=== PATIENT | female | born 1995 | race Caucasian/White ===

== ENCOUNTER 2020-06-03 12:42 | Emergency (ER) | payer MEDICAID, SELFPAY ==
[2020-06-03 12:51] VITALS: BMI 45.1
[2020-06-03 12:54] VITALS: BP 127/76; PULSE 100; RESP 18; TEMP 36.8; O2SAT 98
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
--- NOTE | 2020-06-03 13:58 | USR_ITS ---
PROCEDURE INFORMATION: Exam: US Duplex Left Lower Extremity Veins, Limited Exam date and time: 06/03/2020 2:02 PM Age: 25 years old Clinical indication: Other: Changing lesions between 4th and 5th toes; Additional info: Parasthesias and nonhealing wounds - TECHNIQUE: Imaging protocol: Real-time Duplex ultrasound of the Left Lower Extremity with 2-D gibbs scale, color Doppler flow and spectral waveform analysis with image documentation. Limited exam focused on the left lower extremity veins. COMPARISON: No relevant prior studies available. FINDINGS: Left deep veins: No deep venous thrombosis in the visualized left common femoral, profunda femoris, superficial femoral, popliteal, or posterior tibial veins. Left superficial veins: Unremarkable. Saphenofemoral junction is patent without thrombus. Soft tissues: Unremarkable. Lymph nodes: Fatty replaced inguinal lymph node. US/CV venous duplex [facility] [id number] IMPRESSION: No deep venous thrombosis in the visualized left lower extremity.
[2020-06-03 14:53] VITALS: RESP 18
[2020-06-03 15:15] LABS: Basophils % 0.4 %; Eosinophils # 0.2 10^3/uL (0.0-0.8); Eosinophils % 1.8 %; Hematocrit 35.7 % (37.0-47.0); Hemoglobin 12.2 g/dL (11.5-15.3); Lymphocytes # 2.8 10^3/uL (0.8-4.8); Lymphocytes % 32.5 %; Mean Corpuscular HGB Conc 34.2 g/dL (30.0-36.0); Mean Corpuscular Hemoglobin 29.3 pg (28.0-34.0); Mean Corpuscular Volume 85.8 fL (81-99); Monocytes # 0.5 10^3/uL (0.2-0.9); Monocytes % 5.6 %; Neutrophils # 5.04 10^3/uL (1.8-7.7); Neutrophils % 59.2 %; Nucleated Red Blood Cells % 0 %; Platelet Count 238 10^3/cmm (130-400); Red Blood Count 4.16 10^6/uL (4.1-5.3); Red Cell Distribution Width 12.7 % (12.1-15.1); White Blood Count 8.5 10^3/uL (4.0-10.0)
[2020-06-03 15:29] LABS: Alanine Aminotransferase 44 U/L (0-33); Albumin Level 3.8 g/dL (3.5-5.2); Alkaline Phosphatase 64 IU/L (35-105); Anion Gap 12.8 (5-19); Aspartate Amino Transferase 26 U/L (0-32); Blood Urea Nitrogen 4 mg/dL (6-20); Calcium 9.2 mg/dL (8.5-10.5); Carbon Dioxide 22 mmol/L (22-29); Chloride 104 mmol/L (98-107); Globulin 2.9 g/dL (1.3-4.6); Glomerular Filtration Rate 194.5 mL/min (90-130); Glucose 94 mg/dL (65-115); Osmolality Calculated 275 mOsm/kg (285-295); Potassium 3.8 mmol/L (3.5-5.1); Sodium 135 mmol/L (136-145); Total Bilirubin 0.2 mg/dL (0.15-1.2); Total Protein 6.7 g/dL (6.6-8.7)
[2020-06-03 16:03] VITALS: BP 118/64; PULSE 88; RESP 18; O2SAT 98
== END 2020-06-03 16:04 | disposition home or self-care (01) ==
PROVIDERS: Emergency Provider Nurse Practitioner Family; PCP Family Medicine
DX: B35.3 Tinea pedis (principal); A49.9 Bacterial infection, unspecified; Z87.891 Personal history of nicotine dependence
CPT/HCPCS: 12345; 36415; 80053; 85025; 93971; 99281; 99283

== ENCOUNTER 2021-07-19 23:37 | Emergency (ER) | payer MEDICAID, SELFPAY ==
[2021-07-19 23:47] VITALS: BP 145/91; PULSE 78; RESP 17; TEMP 36.3; O2SAT 92; BMI 49.9
--- NOTE | 2021-07-19 23:58 | XR_ITS ---
WS: [id number] Portable AP upright chest, 07/20/2021 Clinical Data: cough Comparison: None. Findings: No nodules, masses or effusions are seen. The heart is slightly enlarged. The pulmonary vas cularity is not increased. No pneumonia or pneumothorax is seen. XR/XR chest 1V portable [id number] Impression: Cardiomegaly.
--- NOTE | 2021-07-20 | W.ED.ASTHMA ---
HPI - Asthma General: Chief Complaint: Asthma Stated Complaint: Coughing Throat raw Vomiting Blood Time Seen by Provider: 07/19/21 23:48 Source: patient Mode of arrival: ambulatory Limitations: no limitations History of Present Illness: HPI Narrative: 26-year-old female who has a history of asthma and states that over the last 7 days she has had cough congestion. She states she is also had wheezing as well. States she has been out of her inhaler. She denies any diarrhea. Denies any worsening improving factors. Patient is resting comfortably in her room. Associated symptoms: Reports non-productive cough; Deny chest pain or fever(s) Review of Systems Const: Denies: fever(s), chills, body aches or change in appetite Eyes: Denies: blurry vision or eye discomfort ENMT: Reports: nasal congestion Card: Denies: chest pain Resp: Reports: non-productive cough and wheezing GI: Denies: abdominal pain, nausea, vomiting or diarrhea : Denies: dysuria Musc: Denies: neck pain or back pain Skin/Breast: Denies: rash Neuro: Denies: headache(s) Psych: Denies: depression Chip/Lymph: Denies: easy bruising All/Imm: Denies: urticaria PFSH ED PFSH: Social History Smoking and tobacco status: former smoker Quit status (tobacco): has quit using tobacco Year quit tobacco: 2019 Former quit date comment: PPD x 5 yrs Second hand smoke exposure: Yes Alcohol intake: never Lives independently: Yes Household members: family Marital status: Legally Current occupational status: employed 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 History of recent travel: No Current gender identity: Female Female Reproductive History: Date of last menstrual period: 01/24/20 Physical Exam Const: COMMON NORMALS: no acute distress, patient oriented x3 and healthy appearing HENMT: COMMON NORMALS: normocephalic and atraumatic HEAD & SCALP: normocephalic and atraumatic Eye: COMMON NORMALS: Equal, round and reactive pupils present and EOMs intact bilaterally PUPIL: Yes Equal, round and reactive pupils present Neck/C-Spine: COMMON NORMALS: full ROM and supple Chest: COMMONS NORMALS: normal inspection of the chest and normal palpation of entire chest wall Resp: COMMON NORMALS: normal respiratory effort, No retractions and No use of accessory muscles AUSCULTATION: wheezes (mild) Cardio: COMMON NORMALS: regular rate, regular rhythm and No murmurs present (Cardio) RATE: regular rate RHYTHM: regular rhythm GI: COMMON NORMALS: Normal to inspection, nondistended, normoactive bowel sounds present, Soft to palpation, non-tender and no masses PALPATION: Yes Soft to palpation Extremity: COMMON NORMALS: normal to inspection and full ROM Neuro: COMMON NORMALS: patient oriented x3, moves all extremities and no focal motor deficits Psych: COMMON NORMALS: mental status grossly normal, Normal thought process present and cooperative THOUGHT PROCESS: Normal thought process present Skin: COMMON NORMALS: no rashes or lesions noted and no wounds GENERAL SKIN EXAM: no rashes or lesions noted Course Vital Signs: Vital signs: Vital Signs Temperature 97.4 F L 07/19/21 23:47 Pulse Rate 78 07/19/21 23:47 Respiratory Rate 17 07/19/21 23:47 Blood Pressure 145/91 07/19/21 23:47 Pulse Oximetry 92 07/19/21 23:47 MDM - Asthma MDM Narrative: Medical decision making narrative: Patient presents here with cough congestion likely asthma exacerbation we will place him on antibiotic along with steroid inhaler. Patient is to follow-up PCP and return if worsening. Lab Data: Labs: Lab Results 07/20/21 Range/Units 00:15 SARS-CoV-2 Ag (Rap id) Negative (Negative) Imaging Data^: CXR: Attestation: I personally reviewed and interpreted this imaging study as follows: My impression: no acute abnormality Discharge Plan Discharge Patient Disposition: Home Clinical Impression: Asthma exacerbation Qualifiers: Asthma severity: unspecified severity Asthma persistence: unspecified Qualified Code(s): J45.901 - Unspecified asthma with (acute) exacerbation Condition: Stable Prescriptions: New azithromycin 250 mg tablet See Rx Instructions .ROUTE .COMPLEX Qty: 6 RF: 0 prednisone 50 mg tablet 50 mg PO DAILY Qty: 5 RF: 0 No Action Keflex 250 mg capsule 500 mg PO Q12H Qty: 28 RF: 0 Discharge Orders: Discharge ED (Routine); Ordered 07/20/21 Ordered By: Nav Koroma Referrals: Travon Bender MD [Primary Care Provider] - 1-3 days Discharge Diet: Advance as tolerated Discharge Activity: Resume usual activity Patient Instructions: Asthma Exacerbation - Adult Stand Alone Forms: Work/School Release Coding Level of Care Code ED Shredding Specialist for Mikeg 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
[2021-07-20] MEDS: dexamethasone 10 mg/mL INJ IM (00:26)
[2021-07-20 00:44] LABS: SARS Covid-2 Antigen Negative (Negative)
[2021-07-20 01:26] VITALS: BP 145/91; PULSE 78; RESP 17; O2SAT 92
== END 2021-07-20 01:15 | disposition home or self-care (01) ==
PROVIDERS: Emergency Provider Emergency Medicine; PCP Family Medicine
DX: J45.901 Unspecified asthma with (acute) exacerbation (principal); Z87.891 Personal history of nicotine dependence; Z20.822 Contact with and (suspected) exposure to COVID-19
CPT/HCPCS: 71045; 87426; 96372; 99283; J1100; J3535

== ENCOUNTER 2021-08-06 17:31 | Emergency (ER) | payer MEDICAID, SELFPAY ==
[2021-08-06] VITALS (11 sets, daily range): BP systolic 138–165; BP diastolic 72–118; PULSE 76–103; RESP 14–24; TEMP 36.8; O2SAT 98–100; BMI 48.4
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
--- NOTE | 2021-08-06 17:40 | ECG_ITS ---
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
[2021-08-06] MEDS: HYDROmorphone 1 mg/mL INJ 1 mL 0.5 MG IVP (18:04)
[2021-08-06] MEDS: iohexol 300 mg/mL 100 mL Btl IV (18:30)
[2021-08-06 19:09] LABS: Basophils % 0.2 %; Eosinophils % 0.3 %; Hematocrit 37.1 % (37.0-47.0); Hemoglobin 12.4 g/dL (11.5-15.3); Lymphocytes # 2.1 10^3/uL (0.8-4.8); Lymphocytes % 15.2 %; Mean Corpuscular HGB Conc 33.4 g/dL (30.0-36.0); Mean Corpuscular Hemoglobin 28.6 pg (28.0-34.0); Mean Corpuscular Volume 85.7 fl (81-99); Mean Platelet Volume 9.7 fL (7.4-10.4); Monocytes # 0.8 10^3/uL (0.2-0.9); Monocytes % 5.4 %; Neutrophils # 11.02 10^3/uL (1.8-7.7); Neutrophils % 78.5 %; Nucleated Red Blood Cells % 0 %; Platelet Count 266 10^3/cmm (130-400); Red Blood Count 4.33 10^6/uL (4.1-5.3); Red Cell Distribution Width 13.5 % (12.1-15.1); White Blood Count 14.1 10^3/uL (4.0-10.0)
[2021-08-06] MEDS: tetanus-dipt-pertussis 0.5 mL SDV IM (19:24)
[2021-08-06 19:26] LABS: INR 0.99 (0.8-1.2)
[2021-08-06 19:27] LABS: Partial Thromboplastin Time 26.1 SECONDS (23.9-36.7)
[2021-08-06 19:28] LABS: HCG, Serum Qual Negative (Negative)
[2021-08-06] MEDS: sodium chloride 0.9% 1,000 ML 999 ML IV (19:29)
[2021-08-06 19:32] LABS: Alanine Aminotransferase 33 U/L (0-33); Albumin Level 3.7 g/dL (3.5-5.2); Alkaline Phosphatase 87 IU/L (35-105); Aspartate Amino Transferase 21 U/L (0-32); Blood Urea Nitrogen 12 mg/dL (6-20); Calcium 8.5 mg/dL (8.5-10.5); Carbon Dioxide 25 mmol/L (22-29); Chloride 104 mmol/L (98-107); Globulin 2.9 g/dL (1.3-4.6); Glomerular Filtration Rate 120.8 mL/min (90-130); Glucose 110 mg/dL (65-115); Osmolality Calculated 290 mOsm/kg (285-295); Sodium 140 mmol/L (136-145); Total Bilirubin 0.2 mg/dL (0.15-1.2); Total Protein 6.6 g/dL (6.6-8.7)
[2021-08-06 19:34] LABS: Alcohol Level < 10 mg/dL (0-10)
--- NOTE | 2021-08-06 20:35 | XRR_ITS ---
PROCEDURE INFORMATION: Exam: XR Right Knee Exam date and time: 08/06/2021 8:35 PM Age: 26 years old Clinical indication: Pain; Patient HX: Post reduction right knee dislocation TECHNIQUE: Imaging protocol: XR Right knee. Views: 3 views. COMPARISON: CR (LOW EXM, ) 08/06/2021 6:38 PM FINDINGS: Bones/joints: Status post interval reduction of the previously seen anterior knee dislocation. Curvilinear osseous fragment along the posterior margin of the knee, concerning for a small avulsion fracture. Soft tissues: Mild soft tissue swelling. XR/XR knee RT 3V* [id number] IMPRESSION: Status post interval reduction of the previously seen anterior knee dislocation. Curvilinear osseous fragment along the posterior margin of the knee, concerning for a small avulsion fracture.
--- NOTE | 2021-08-06 20:57 | PC.NURSE ---
PATIENT AWOKE FROM CONSCIOUS SEDATION AT 2054.
--- NOTE | 2021-08-06 21:14 | PC.NURSE ---
PATIENT FULLY AWAKE FROM CONSCIOUS SEDATION, VISITOR AT BEDSIDE. PATIENT STATES THAT SHE STILL FEELS A LITTLE LOOPY AND NAUSEOUS. PATIENT STATES SHE STILL HAS KNEE PAIN AND A HEADACHE.
== END 2021-08-06 22:34 | disposition left against medical advice (07) ==
PROVIDERS: Emergency Provider Emergency Medicine
DX: Z04.1 Encounter for examination and observation following transport accident (principal); Z87.891 Personal history of nicotine dependence; V89.2XXA Person injured in unspecified motor-vehicle accident, traffic, initial encounter; Z53.21 Procedure and treatment not carried out due to patient leaving prior to being seen by health care provider; Z23 Encounter for immunization
CPT/HCPCS: 36415; 70450; 71260; 72125; 73080; 73110; 73562; 73610; 74177; 80053; 80307; 84703; 85025; 85610; 85730; 90471; 90715; 93005; 96374; 99284; J1170; J3490; J7030; Q9967

== ENCOUNTER → 2021-08-13 08:22 | Outpatient (BNVA) | payer MEDICAID, SELFPAY | PROVIDERS: Referring Provider Emergency Medicine; Visit Provider Specialist | DX: S83.106A Unspecified dislocation of unspecified knee, initial encounter (principal); X58.XXXA Exposure to other specified factors, initial encounter | CPT/HCPCS: 73562 ==

== ENCOUNTER 2021-08-23 09:41 | Outpatient (CLI) | payer MEDICAID, SELFPAY ==
--- NOTE | 2021-08-23 09:30 | MR_ITS ---
WS: [id number] MRI RIGHT KNEE HISTORY: Prior dislocation. COMPARISON: Knee radiographs 08/13/2021 and 08/06/2021 Anterior cruciate ligament: Complete tear of the ACL. Increased T2 signal in the expected location of the ACL but no normal ligament is identified. Posterior cruciate ligament: Intact. Medial collateral ligament: Increased T2 signal on both sides of the MCL. There is no full-thickness tear. Mild separation of the MCL from the tibia. Posterior lateral corner structures: Increased T2 signal extensively surrounding the lateral collater al ligament. There is at least a partial tear but not a full-thickness tear. There is increased T2 si gnal surrounding the popliteus tendon but it is intact. Small amount of edema surrounding the biceps Christopher tendon but it is intact. Medial menisci: Abnormal signal in the posterior horn in the periphery. There are linear areas of inc reased T2 signal extending towards the meniscal root with mild blunting of the free edge. Anterior ho rn is normal. Lateral meniscus: Abnormal posterior horn. Posterior horn is extruded and not identifiable as the men iscus. Anterior horn is normal. Extensor mechanism: Distal quadriceps tendon and patellar tendons are intact. Fluid and soft tissue: Very small suprapatellar joint effusion. There is a large amount of soft tissu e edema surrounding the knee. Soft tissue edema is significant within the popliteus muscle and surrou nding the tendon. There are also areas of hemorrhage. Small amount of edema within the lateral head o f the gastrocnemius. No Wilson's cyst. Osseous and articular structures: Patellofemoral compartment: Normal. Medial compartment: Normal appearance of the joint space. Lateral compartment: Normal appearance of the joint space. There is fluid within the posterior joint space replacing the extruded/macerated meniscus. There is a large amount of marrow edema within the proximal tibia. Majority of edema is along the pos terior tibia extending from the tibial plateau extending inferiorly into the proximal metaphysis. Fra cture suspected along the posterior medial tibial plateau. Nondisplaced. There is a small amount of e bryant in the medial femoral condyle. MR/MR knee RT wo con* [id number] IMPRESSION: 1. Complete tear ACL. 2. Completely torn and macerated posterior horn medial meniscus. Additional te ars involving the periphery of the posterior horn lateral meniscus. 3. Large amount of edema with hemorrhage in the popliteus muscle and surroundi ng the tendon but the tendon does appear intact. 4. Partial tear involving the lateral collateral ligament. The ligament is adriana rounded by large amount of fluid but no full-thickness tear. Additional mild ed abril surrounding the biceps femoris tendon. 5. Mild MCL sprain. 6. Extensive marrow edema in the proximal tibia to the metaphysis, predominant ly involving the posterior tibia. Additional small amount of edema in the media l femoral condyle. Suspect there is a fracture which is nondisplaced along the posterior medial tibial plateau. 7. Edema lateral head of the gastrocnemius muscle.
== END 2021-08-23 09:42 | disposition home or self-care (01) ==
LOC: RADSHAW 09:44
PROVIDERS: Visit Provider Specialist
DX: S83.511A Sprain of anterior cruciate ligament of right knee, initial encounter (principal); X58.XXXA Exposure to other specified factors, initial encounter; M25.461 Effusion, right knee
CPT/HCPCS: 73721

== ENCOUNTER 2021-09-06 11:03 | Outpatient (CLI) | payer MEDICAID, SELFPAY | END 2021-09-06 11:04 | disposition home or self-care (01) | LOC: SPT 11:11 | PROVIDERS: Visit Provider Specialist | DX: Z46.89 Encounter for fitting and adjustment of other specified devices (principal); S83.511A Sprain of anterior cruciate ligament of right knee, initial encounter; X58.XXXA Exposure to other specified factors, initial encounter | CPT/HCPCS: L1812 ==

== ENCOUNTER 2021-11-15 20:00 | Emergency (ER) | payer MEDICAID, SELFPAY ==
--- NOTE | 2021-11-15 20:04 | XRR_ITS ---
PROCEDURE INFORMATION: Exam: XR Right Knee Exam date and time: 11/15/2021 8:04 PM Age: 26 years old Clinical indication: Pain; Knee; Right; Additional info: Injury TECHNIQUE: Imaging protocol: XR Right knee. Views: 3 views. COMPARISON: CR (LOW EXM, ) 08/06/2021 6:38 PM FINDINGS: Bones/joints: Osseous structures are intact. Negative for fracture. Joint spaces are preserved. Soft tissues: Normal. XR/XR knee RT 3V* [id number] IMPRESSION: No acute findings.
[2021-11-15 20:25] VITALS: BP 118/77; PULSE 79; RESP 16; TEMP 36; O2SAT 99; BMI 49.7
--- NOTE | 2021-11-15 20:31 | ED_ITS ---
HPI - Extremity Problem General: Chief complaint: Extremity Injury, Lower Stated complaint: Injury Rt Knee Time Seen by Provider: 11/15/21 20:23 History of Present Illness: HPI Narrative: Patient with right knee pain worsened after injury last night. Patient has history of complete ACL tear partial LCL tear and complete meniscus tear. Patient has been unable to do physical therapy and follow-up with the orthopedic doctor. Patient states her knee has hurt worse since last night when it went out from underneath her. Patient is able to ambulate. MD Complaint: joint swelling and joint pain Onset (ago): hour(s) Pain Consistency: constant Location: right and knee Severity scale (1-10): 3 Quality: aching Radiation: none Relieving factors: immobilization Exacerbating factors: range of motion Associated symptoms: Reports no associated symptoms; Deny chest pain, fever(s) or rash Review of Systems Const: Denies: fever(s), chills or body aches Eyes: Denies: change in vision or blurry vision ENMT: Denies: throat pain or nasal congestion Card: Denies: chest pain or dyspnea on exertion Resp: Denies: dyspnea, productive cough or non-productive cough GI: Denies: abdominal pain, nausea or vomiting Musc: Reports: joint pain (Right knee is hurt worse since injuring it yesterday, from previous injury); Denies: extremity pain Skin/Breast: Denies: rash Neuro: Denies: headache(s) Psych: Denies: anxiety or depression Chip/Lymph: Denies: easy bruising PFSH ED PFSH: Surgical History No pertinent past surgical history Social History Quit status (tobacco): has quit using tobacco Year quit tobacco: 2019 Former quit date comment: PPD x 5 yrs Second hand smoke exposure: Yes Alcohol intake: never Lives independently: Yes Household members: family Marital status: Legally Current occupational status: employed 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 History of recent travel: No Current gender identity: Female Female Reproductive History: Date of last menstrual period: 10/26/21 Physical Exam Const: COMMON NORMALS: no acute distress GENERAL APPEARANCE: cooperative Extremity: RIGHT LOWER EXTREMITY: Yes knee joint (Tender lateral aspect, hard to turn swelling due to size) Psych: COMMON NORMALS: mental status grossly normal Course Vital Signs: Vital signs: Vital Signs Temperature 96.8 F L 11/15/21 20:25 Pulse Rate 79 11/15/21 20:25 Respiratory Rate 16 11/15/21 20:25 Blood Pressure 118/77 11/15/21 20:25 Pulse Oximetry 99 11/15/21 20:25 Discharge Plan Discharge Patient Disposition: Home Clinical Impression: Right knee sprain Qualifiers: Encounter type: initial encounter Involved ligament of knee: lateral collateral ligament Qualified Code(s): S83.421A - Sprain of lateral collateral ligament of right knee, initial encounter Condition: Stable Prescriptions: New Celebrex 100 mg capsule 200 mg PO BID Qty: 20 RF: 0 Discontinued azithromycin 250 mg tablet See Rx Instructions .ROUTE .COMPLEX Qty: 6 RF: 0 prednisone 50 mg tablet 50 mg PO DAILY Qty: 5 RF: 0 cephalexin [Keflex] 250 mg capsule 500 mg PO Q12H Qty: 28 RF: 0 No Action (DME) ARVIN See Rx Instructions .Route .MEDSUPPLY Qty: 1 RF: 0 Discharge Orders: Discharge ED (Routine); Ordered 11/15/21 Ordered By: Cody Chavez Discharge Diet: Usual diet Discharge Activity: Increase activity as tolerated Patient Instructions: Knee Pain (ED) Activity Restrictions/Additional Instructions: Follow-up with Dr. Caldwell in the next few days. Try to stay away from any extreme activity can worsen knee pain and swelling. Wear your knee immobilizer or your hinged knee brace. Stop ibuprofen and take Celebrex. Can apply ice to area. Coding Level of Care Code ED Operational Risk Consultant for Aracely De Leon
[2021-11-15 20:52] VITALS: RESP 18
[2021-11-15] MEDS: CELEcoxib 200 mg Capsule 400 MG PO (20:52)
== END 2021-11-15 20:53 | disposition home or self-care (01) ==
PROVIDERS: Emergency Provider Nurse Practitioner Family
DX: S83.421A Sprain of lateral collateral ligament of right knee, initial encounter (principal); Z87.891 Personal history of nicotine dependence; X58.XXXA Exposure to other specified factors, initial encounter
CPT/HCPCS: 73562; 99283

== ENCOUNTER → 2022-03-19 10:03 | Outpatient (BNVA) | payer MEDICAID, SELFPAY | PROVIDERS: Referring Provider Nurse Practitioner Family; Visit Provider Obstetrics & Gynecology | DX: Z30.9 Encounter for contraceptive management, unspecified (principal); N89.8 Other specified noninflammatory disorders of vagina | CPT/HCPCS: 81025; 87491; 87591; 87661 ==

== ENCOUNTER → 2022-04-03 10:15 | Outpatient (BNVA) | payer MEDICAID, SELFPAY | PROVIDERS: Visit Provider Obstetrics & Gynecology | DX: R10.2 Pelvic and perineal pain (principal) | CPT/HCPCS: 76830 ==

== ENCOUNTER 2022-04-04 06:09 | Emergency (ER) | payer MEDICAID, SELFPAY ==
[2022-04-04 06:16] VITALS: BP 131/112; PULSE 89; RESP 26; TEMP 37.2; O2SAT 94; BMI 50.9
[2022-04-04 06:42] VITALS: BP 151/100; PULSE 69; RESP 24; O2SAT 97
--- NOTE | 2022-04-04 06:42 | US_ITS ---
WS: [id number] TRANSVAGINAL PELVIC ULTRASOUND HISTORY: RLQ pain concern for torsion COMPARISON: 04/03/2022 Uterus: 8.4 cm x 5.4 cm x 4.3 cm. Normal size anteverted uterus. Mild heterogeneity within the myomet rium. No fibroids. Endometrium: 0.4 cm. Normal. Normal size and vascularity. Right ovary: 2.9 cm x 2.1 cm x 3.1 cm. Previously described ovarian cyst is no longer present. The RI GHT ovary is difficult to visualize due to a large amount of adjacent bowel gas. Normal vascularity n oted within the region of the RIGHT ovary. Left ovary: 3.2 cm x 1.9 cm x 3.5 cm. Poorly visualized LEFT ovary. LEFT ovary is difficult to visual ize due to bowel gas. There is also a large amount shadowing from the adnexa. New small amount of free fluid in the cul-de-sac. US/US transvaginal [id number] IMPRESSION: 1. RIGHT ovarian cyst described on 04/03/2022 is no longer present. There is no w a small amount of free fluid in the cul-de-sac. 2. Neither ovary is very well visualized today. There is a large amount shadow ing in the adnexa from bowel gas. 3. Normal endometrium. 4. No convincing evidence for ovarian torsion on this examination. Notified Antwan Romero MD at 04/04/2022 7:59 AM.
[2022-04-04] MEDS: ketorolac 30 mg/mL INJ IVP (06:47)
--- NOTE | 2022-04-04 06:49 | ED_ITS ---
HPI - General Adult General: Chief complaint: General Medical Stated complaint: severe pelvis pain Time Seen by Provider: 04/04/22 06:35 History of Present Illness: Patient comes in with right lower quadrant abdominal/pelvic pain. States that she has been having worsening pelvic pain for the past couple months especially around her cycle. States she is a week away from her next menstrual cycle. Was seen recently by OB and started on antibiotics a couple weeks ago for pelvic inflammatory disease. States she had an ultrasound yesterday which in the system shows a small right ovarian cyst otherwise unremarkable. States the pain got significantly worse this morning. Associated symptoms: Reports nausea; Deny chest pain, dyspnea, headache(s), rash, palpitations or vomiting Review of Systems Const: Denies: fever(s) or body aches Eyes: Denies: change in vision or blurry vision ENMT: Denies: throat pain or odynophagia Card: Denies: chest pain or palpitations Resp: Denies: dyspnea or productive cough GI: Reports: abdominal pain and nausea; Denies: vomiting : Reports: pelvic pain; Denies: flank pain or dysuria Musc: Denies: neck pain or back pain Skin/Breast: Denies: rash or pruritus Neuro: Denies: headache(s) or numbness in extremities Psych: Denies: anxiety or change in appetite Endo: Denies: polyuria or excessive sweating PFSH ED PFSH: Surgical History (Updated 03/19/22 @ 09:50 by Conchis Lau RN) No pertinent past surgical history Family History (Updated 03/19/22 @ 09:52 by Conchis Lau RN) Mother Bleeding disorder Stroke Thyroid condition Breast cancer, Onset Age: 23 been diagnosed twice Father Hypertension Stroke Grandmother Stroke paternal Heart disease paternal Breast cancer maternal and paternal 50's Denies family history of Colon cancer Ovarian cancer Diabetes Clotting disorder Hyperlipidemia Anesthesia complication Uterine cancer Social History (Updated 03/19/22 @ 09:52 by Conchis Lau RN) Alcohol intake: never Lives independently: Yes Household members: family Marital status: Legally Current occupational status: employed 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 History of recent travel: No Current gender identity: Female Female Reproductive History: Date of last menstrual period: 10/26/21 Physical Exam Const: COMMON NORMALS: no acute distress, patient oriented x3, healthy appearing and alert HENMT: COMMON NORMALS: normocephalic and atraumatic HEAD & SCALP: normocephalic and atraumatic Eye: COMMON NORMALS: Equal, round and reactive pupils present and EOMs intact bilaterally PUPIL: Yes Equal, round and reactive pupils present Neck/C-Spine: COMMON NORMALS: full ROM and supple Resp: COMMON NORMALS: normal respiratory effort, No retractions and No use of accessory muscles Cardio: COMMON NORMALS: regular rate and regular rhythm RATE: regular rate RHYTHM: regular rhythm GI: COMMON NORMALS: Normal to inspection, nondistended, normoactive bowel sounds present and Soft to palpation PALPATION: Yes Soft to palpation OTHER: Right lower quadrant tenderness to palpation Back/Pelvis: COMMON NORMALS: thoracic and lumbar spine normal to inspection and no thoracic nor lumbar tenderness Extremity: COMMON NORMALS: normal to inspection and full ROM Neuro: COMMON NORMALS: patient oriented x3 SENSORIUM/ORIENTATION: Yes alert Psych: COMMON NORMALS: mental status grossly normal and cooperative Skin: COMMON NORMALS: no rashes or lesions noted and no wounds GENERAL SKIN EXAM: no rashes or lesions noted Course Vital Signs: Vital signs: Vital Signs Temperature 98.9 F 04/04/22 06:16 Pulse Rate 69 04/04/22 06:42 Respiratory Rate 24 H 04/04/22 06:42 Blood Pressure 151/100 04/04/22 06:42 Pulse Oximetry 97 04/04/22 06:42 [facility] - General Adult Medical Decision Making Patient comes in with right lower quadrant abdominal/pelvic pain. States that she has been having worsening pelvic pain for the past couple months especially around her cycle. States she is a week away from her next menstrual cycle. Was seen recently by OB and started on antibiotics a couple weeks ago for pelvic inflammatory disease. States she had an ultrasound yesterday which in the system shows a small right ovarian cyst otherwise unremarkable. States the pain got significantly worse this morning. On physical exam she has right lower quadrant tenderness to palpation. Will check labs, treat pain with IV Toradol, treat nausea with IV Zofran, repeat pelvic ultrasound to rule out ovarian torsion, and reassess. On reassessment I talked to the patient about the test results. We will start her on naproxen and discharged with precautions return for worsening or changing symptoms. Lab Data : 04/04/22 06:15 04/04/22 06:15 Laboratory Results WBC 7.7 10^3/uL (4.0-10.0) 04/04/22 06:15 RBC 4.55 10^6/uL (4.1-5.3) 04/04/22 06:15 Hgb 12.8 g/dL (11.5-15.3) 04/04/22 06:15 Hct 38.9 % (37.0-47.0) 04/04/22 06:15 MCV 85.5 fl (81-99) 04/04/22 06:15 MCH 28.1 pg (28.0-34.0) 04/04/22 06:15 MCHC 32.9 g/dL (30.0-36.0) 04/04/22 06:15 RDW 13.2 % (12.1-15.1) 04/04/22 06:15 Plt Count 272 10^3/cmm (130-400) 04/04/22 06:15 MPV 10.2 fL (7.4-10.4) 04/04/22 06:15 Neut % (Auto) 45.3 % 04/04/22 06:15 Lymph % (Auto) 46.2 % 04/04/22 06:15 [place] % (Auto) 5.9 % 04/04/22 06:15 Eos % (Auto) 1.6 % 04/04/22 06:15 Baso % (Auto) 0.7 % 04/04/22 06:15 Neut # (Auto) 3.49 10^3/uL (1.8-7.7) 04/04/22 06:15 Lymph # (Auto) 3.5 10^3/uL (0.8-4.8) 04/04/22 06:15 [place] # (Auto) 0.5 10^3/uL (0.2-0.9) 04/04/22 06:15 Eos # (Auto) 0.1 10^3/uL (0.0-0.8) 04/04/22 06:15 Baso # (Auto) 0.1 10^3/uL (0.0-0.1) 04/04/22 06:15 Nucleated RBC % (auto) 0 % 04/04/22 06:15 Nucleated RBCs # 0.0 /100WBC 04/04/22 06:15 Sodium 138 mmol/L (136-145) 04/04/22 06:15 Potassium 3.5 mmol/L (3.5-5.1) 04/04/22 06:15 Chloride 105 mmol/L (98-107) 04/04/22 06:15 Carbon Dioxide 21 mmol/L (22-29) L 04/04/22 06:15 Anion Gap 15.5 (5-19) 04/04/22 06:15 BUN 9 mg/dL (6-20) 04/04/22 06:15 Creatinine 0.5 mg/dL (0.5-0.9) 04/04/22 06:15 GFR Calculation 149.1 mL/min (90-130) H 04/04/22 06:15 Glucose 94 mg/dL (65-115) 04/04/22 06:15 Calculated Osmolality 284 mOsm/kg (285-295) L 04/04/22 06:15 Calcium 8.4 mg/dL (8.5-10.5) L 04/04/22 06:15 Total Bilirubin 0.3 mg/dL (0.15-1.2) 04/04/22 06:15 AST 14 U/L (0-32) 04/04/22 06:15 ALT 27 U/L (0-33) 04/04/22 06:15 Alkaline Phosphatase 77 IU/L (35-105) 04/04/22 06:15 Total Protein 6.2 g/dL (6.6-8.7) L 04/04/22 06:15 Albumin 3.6 g/dL (3.5-5.2) 04/04/22 06:15 Globulin 2.6 g/dL (1.3-4.6) 04/04/22 06:15 Discharge Plan Discharge Patient Disposition: Home Clinical Impression: Ovarian cyst Condition: Stable Prescriptions: New naproxen 500 mg tablet 500 mg PO BID PRN (Reason: pain) Qty: 10 0RF No Action citalopram PO DAILY 0RF buspirone [BuSpar] PO .daily 0RF doxycycline hyclate 100 mg capsule 100 mg PO BID 14 Days Qty: 28 0RF metronidazole 500 mg tablet 500 mg PO BID 14 Days Qty: 28 0RF norgestimate-ethinyl estradiol [Sprintec (28)] 0.25-35 mg-mcg tablet 1 tab PO DAILY Qty: 28 0RF Rx Instructions: cancel script for prn, she should be taking one tablet daily clindamycin HCl 150 mg capsule 150 mg PO Q6H 7 Days Qty: 28 0RF Discharge Orders: Discharge ED (Routine); Ordered 04/04/22 Ordered By: Antwan Romero Patient Instructions: Ovarian Cyst Coding Level of Care Code 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
[2022-04-04 06:51] LABS: Basophils # 0.1 10^3/uL (0.0-0.1); Basophils % 0.7 %; Eosinophils # 0.1 10^3/uL (0.0-0.8); Eosinophils % 1.6 %; Hematocrit 38.9 % (37.0-47.0); Hemoglobin 12.8 g/dL (11.5-15.3); Lymphocytes # 3.5 10^3/uL (0.8-4.8); Lymphocytes % 46.2 %; Mean Corpuscular HGB Conc 32.9 g/dL (30.0-36.0); Mean Corpuscular Hemoglobin 28.1 pg (28.0-34.0); Mean Corpuscular Volume 85.5 fl (81-99); Mean Platelet Volume 10.2 fL (7.4-10.4); Monocytes # 0.5 10^3/uL (0.2-0.9); Monocytes % 5.9 %; Neutrophils # 3.49 10^3/uL (1.8-7.7); Neutrophils % 45.3 %; Nucleated Red Blood Cells % 0 %; Platelet Count 272 10^3/cmm (130-400); Red Blood Count 4.55 10^6/uL (4.1-5.3); Red Cell Distribution Width 13.2 % (12.1-15.1); White Blood Count 7.7 10^3/uL (4.0-10.0)
[2022-04-04 07:09] LABS: Alanine Aminotransferase 27 U/L (0-33); Albumin Level 3.6 g/dL (3.5-5.2); Alkaline Phosphatase 77 IU/L (35-105); Anion Gap 15.5 (5-19); Aspartate Amino Transferase 14 U/L (0-32); Blood Urea Nitrogen 9 mg/dL (6-20); Calcium 8.4 mg/dL (8.5-10.5); Carbon Dioxide 21 mmol/L (22-29); Chloride 105 mmol/L (98-107); Globulin 2.6 g/dL (1.3-4.6); Glomerular Filtration Rate 149.1 mL/min (90-130); Glucose 94 mg/dL (65-115); Osmolality Calculated 284 mOsm/kg (285-295); Potassium 3.5 mmol/L (3.5-5.1); Sodium 138 mmol/L (136-145); Total Bilirubin 0.3 mg/dL (0.15-1.2); Total Protein 6.2 g/dL (6.6-8.7)
[2022-04-04 08:20] VITALS: BP 151/100; PULSE 69; RESP 24; O2SAT 97
== END 2022-04-04 08:21 | disposition home or self-care (01) ==
PROVIDERS: Emergency Provider Emergency Medicine
DX: N83.201 Unspecified ovarian cyst, right side (principal)
CPT/HCPCS: 76830; 80053; 85025; 96374; 99284; J1885

== ENCOUNTER 2022-04-07 12:18 | Emergency (ER) | payer MEDICAID, SELFPAY ==
[2022-04-07 12:25] VITALS: BP 136/71; PULSE 62; RESP 18; O2SAT 96; BMI 50.9
--- NOTE | 2022-04-07 12:32 | USR_ITS ---
PROCEDURE INFORMATION: Exam: US Pelvis, Transvaginal Exam date and time: 04/07/2022 1:25 PM Age: 26 years old Clinical indication: Other: Bilateral ovary areas; Patient HX: Severe pain from first visit and worse on today there is bleeding and severe pain. ; Additional info: Pain/heavy bleeding TECHNIQUE: Imaging protocol: Real-time transvaginal pelvic ultrasound with image documentation. Transvaginal imaging was used for better evaluation of the endometrium, adnexa, and/or cervix. COMPARISON: US transvaginal [id number] 04/04/2022 7:01 AM FINDINGS: Uterus: Endometrial stripe measures 5.5 mm and is homogeneous. Uterus measures 8.0 x 3.8 by 4.9 cm. Right ovary/adnexa: Right ovary measures 4.7 x 1.6 x 4.1 cm with a volume of 16.3 cc. Normal appearing follicle. Normal flow. Left ovary/adnexa: Left ovary measures 3.1 x 2.1 x 2.5 cm with a volume of 8.4 cc. Normal appearing follicle. Intraperitoneal space: No free fluid. US/US transvaginal [id number] IMPRESSION: Unremarkable pelvic ultrasound.
[2022-04-07 12:33] VITALS: BP 136/71; PULSE 64; RESP 18; TEMP 36.3; O2SAT 95
--- NOTE | 2022-04-07 12:33 | ED_ITS ---
HPI - Female Genitourinary General: Chief complaint: Abdominal Pain Stated complaint: OVARIAN CYST WITH VAGINAL BLEEDING Time Seen by Provider: 04/07/22 12:20 Source: patient Mode of arrival: ambulatory Limitations: no limitations History of Present Illness: Patient is a 26-year-old female who presents to ED today with a complaint of pelvic pain and vaginal bleeding. Patient states she was evaluated by her OB provider earlier this month for pelvic pain. She was subsequently diagnosed with PID and started on antibiotic therapy for this. Cultures did come back positive for Trichomonas. Patient states she was seen at our ED on 04/04 for complaints of pain and diagnosed with an ovarian cyst. She states following the TV ultrasound she began having vaginal bleeding that has continued. States she has soaked 8 pads so far today. She states he isn't scheduled to start her menstrual cycle for another week. Patient states she has had intermittent pelvic pains for several months. She reports they seem to worsen before her menstrual cycle. She has an appointment scheduled with Dr. Marsh on 05/03 for a preop visit for a tubal ligation on 05/08. She is hoping she can talk him into performing a hysterectomy. She is not having any vaginal discharge/odor complaints at this time. No N/V/D. No fevers. MD elicited complaint: vaginal bleeding and pelvic pain Pertinent past history: PID Onset (ago): day(s) Vaginal discharge: none Vaginal bleeding: heavy Exacerbating factors: none Relieving factors: none Associated symptoms: Deny abdominal pain, headache(s), nausea or vaginal discharge Treatment prior to arrival: none Sexual activity: Yes Patient : No Date of Last Menstrual Period: 03/07/22 Review of Systems Const: Denies: fever(s), chills, body aches, fatigue or malaise Card: Denies: chest pain Resp: Denies: dyspnea GI: Denies: abdominal pain, nausea, vomiting or change in bowel habits : Reports: vaginal bleeding, irregular period and pelvic pain; Denies: flank pain, difficulty voiding, dysuria, urinary frequency, urinary urgency, genital lesions, genital pruritis, vaginal odor or vaginal discharge Musc: Denies: back pain Skin/Breast: Denies: rash Neuro: Denies: headache(s) PFSH ED PFSH: Surgical History No pertinent past surgical history Family History Mother Bleeding disorder Stroke Thyroid condition Breast cancer, Onset Age: 23 been diagnosed twice Father Hypertension Stroke Grandmother Stroke paternal Heart disease paternal Breast cancer maternal and paternal 50's Denies family history of Colon cancer Ovarian cancer Diabetes Clotting disorder Hyperlipidemia Anesthesia complication Uterine cancer Social History Alcohol intake: never Lives independently: Yes Household members: family Marital status: Legally Current occupational status: employed 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 History of recent travel: No Current gender identity: Female Female Reproductive History: Date of last menstrual period: 03/07/22 Physical Exam Const: COMMON NORMALS: no acute distress, patient oriented x3, no limitations and alert GENERAL APPEARANCE: cooperative NUTRITIONAL APPEARANCE: obese morbidly obese ORIENTATION/CONSCIOUSNESS: Yes awake, Yes oriented to person, Yes oriented to place and Yes oriented to time HENMT: COMMON NORMALS: normocephalic and atraumatic HEAD & SCALP: normal to inspection, normocephalic and atraumatic Resp: COMMON NORMALS: normal respiratory effort and clear to auscultation bilaterally AUSCULTATION: clear to auscultation bilaterally Cardio: COMMON NORMALS: regular rate and regular rhythm RATE: regular rate RHYTHM: regular rhythm GI: COMMON NORMALS: Normal to inspection, nondistended, normoactive bowel sounds present, Soft to palpation, No hepatosplenomegaly present and no masses INSPECTION: Yes normal to inspection AUSCULTATION: Yes normoactive bowel sounds PALPATION: Yes Soft to palpation, Yes Tenderness to palpation present (GI) (mild tenderness to lower abdomen/pelvis), No Guarding due to palpation present (GI), No Rigid due to palpation and Yes No hepatosplenomegaly present : COMMON NORMALS: Yes no CVA tenderness BLADDER/KIDNEY EXAM: Yes no CVA tenderness SPECULUM EXAM - VAGINA: Yes other (small amount of blood in vaginal canal coming from cervical os) SPECULUM EXAM - CERVIX: Yes Cervical os closed, No mucoid cervix, No watery cervix, No Abnormal cervical discharge present and No Cervical tenderness present BIMANUAL EXAM - VAGINA & UTERUS: No Cervical tenderness present Back/Pelvis: COMMON NORMALS: no CVA tenderness Extremity: COMMON NORMALS: normal to inspection Neuro: ZENAIDA COMA SCALE: document GCS findings Zenaida coma scale eye opening: Spontaneous [place] coma scale verbal response: Orientated Zenaida coma scale motor response: Obey commands Zenaida coma scale total score: 15 COMMON NORMALS: patient oriented x3, moves all extremities, no focal motor deficits and no sensory deficits noted SENSORIUM/ORIENTATION: Yes alert, Yes oriented to person, Yes oriented to place and Yes oriented to time Skin: COMMON NORMALS: no rashes or lesions noted GENERAL SKIN EXAM: no rashes or lesions noted TRAUMA: no lacerations or abrasions Course Vital Signs: Vital signs: Vital Signs Temperature 97.3 F L 04/07/22 12:33 Pulse Rate 64 04/07/22 12:33 Respiratory Rate 18 04/07/22 12:33 Blood Pressure 136/71 04/07/22 12:33 Pulse Oximetry 95 04/07/22 12:33 MDM - Female Medical Decision Making Patient had minimal bleeding noted on pelvic exam today. Her vital signs are stable. Her hemoglobin today is higher than it was on her last visit. Prelim US report shows a physiologic right sided ovarian cyst without any other gross abnormalities. At this point patient needs to follow-up with gynecology in regards to her chronic pelvic pains. She does have an appointment with Dr. Marsh scheduled in approximately a month. Will place referral to see if they can get her seen sooner. Return to ED precautions given. Lab Data : 04/07/22 12:30 Laboratory Results WBC 6.3 10^3/uL (4.0-10.0) 04/07/22 12:30 RBC 4.53 10^6/uL (4.1-5.3) 04/07/22 12:30 Hgb 12.9 g/dL (11.5-15.3) 04/07/22 12:30 Hct 37.8 % (37.0-47.0) 04/07/22 12:30 MCV 83.4 fl (81-99) 04/07/22 12:30 MCH 28.5 pg (28.0-34.0) 04/07/22 12:30 MCHC 34.1 g/dL (30.0-36.0) 04/07/22 12:30 RDW 12.7 % (12.1-15.1) 04/07/22 12:30 Plt Count 263 10^3/cmm (130-400) 04/07/22 12:30 MPV 10.0 fL (7.4-10.4) 04/07/22 12:30 Neut % (Auto) 51.4 % 04/07/22 12:30 Lymph % (Auto) 39.2 % 04/07/22 12:30 [place] % (Auto) 6.5 % 04/07/22 12:30 Eos % (Auto) 1.9 % 04/07/22 12:30 Baso % (Auto) 0.8 % 04/07/22 12:30 Neut # (Auto) 3.23 10^3/uL (1.8-7.7) 04/07/22 12:30 Lymph # (Auto) 2.5 10^3/uL (0.8-4.8) 04/07/22 12:30 [place] # (Auto) 0.4 10^3/uL (0.2-0.9) 04/07/22 12:30 Eos # (Auto) 0.1 10^3/uL (0.0-0.8) 04/07/22 12:30 Baso # (Auto) 0.1 10^3/uL (0.0-0.1) 04/07/22 12:30 Nucleated RBC % (auto) 0 % 04/07/22 12:30 Nucleated RBCs # 0.0 /100WBC 04/07/22 12:30 Urine Color Red (Yellow) 04/07/22 12:44 Urine Appearance Bloody (CLEAR) A 04/07/22 12:44 Urine pH 6.5 (5-7) 04/07/22 12:44 Ur Specific [place] 1.010 (1.005-1.030) 04/07/22 12:44 Urine Protein Trace (Negative) 04/07/22 12:44 Urine Glucose (UA) Norm (Normal) 04/07/22 12:44 Urine Ketones Negative (Negative) 04/07/22 12:44 Urine Blood 3+ (Negative) H 04/07/22 12:44 Urine Nitrate Negative (Negative) 04/07/22 12:44 Urine Bilirubin Neg (Negative) 04/07/22 12:44 Urine Urobilinogen Norm mg/dL (Negative) 04/07/22 12:44 Ur Leukocyte Esterase Trace (Negative) H 04/07/22 12:44 Urine RBC Too numerous to cnt /hpf (0-2) H 04/07/22 12:44 Urine WBC 5-10 /hpf (0-5) H 04/07/22 12:44 Ur Squamous Epith Cells Rare /hpf (0-5) 04/07/22 12:44 Amorphous Sediment Not Reportable 04/07/22 12:44 Urine Bacteria Trace /hpf (NONE) 04/07/22 12:44 Urine HCG, Qual Negative (Negative) 04/07/22 12:45 Discharge Plan Discharge Patient Disposition: Home Clinical Impression: Cyst of right ovary, Vaginal bleeding Condition: Stable Prescriptions: No Action citalopram PO DAILY 0RF buspirone [BuSpar] PO .daily 0RF doxycycline hyclate 100 mg capsule 100 mg PO BID 14 Days Qty: 28 0RF metronidazole 500 mg tablet 500 mg PO BID 14 Days Qty: 28 0RF norgestimate-ethinyl estradiol [Sprintec (28)] 0.25-35 mg-mcg tablet 1 tab PO DAILY Qty: 28 0RF Rx Instructions: cancel script for prn, she should be taking one tablet daily clindamycin HCl 150 mg capsule 150 mg PO Q6H 7 Days Qty: 28 0RF naproxen 500 mg tablet 500 mg PO BID PRN (Reason: pain) Qty: 10 0RF Discharge Orders: Discharge ED (Routine); Ordered 04/07/22 Ordered By: Karina Weaver Coding Level of Care Code 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
[2022-04-07 12:43] LABS: Basophils # 0.1 10^3/uL (0.0-0.1); Basophils % 0.8 %; Eosinophils # 0.1 10^3/uL (0.0-0.8); Eosinophils % 1.9 %; Hematocrit 37.8 % (37.0-47.0); Hemoglobin 12.9 g/dL (11.5-15.3); Lymphocytes # 2.5 10^3/uL (0.8-4.8); Lymphocytes % 39.2 %; Mean Corpuscular HGB Conc 34.1 g/dL (30.0-36.0); Mean Corpuscular Hemoglobin 28.5 pg (28.0-34.0); Mean Corpuscular Volume 83.4 fl (81-99); Monocytes # 0.4 10^3/uL (0.2-0.9); Monocytes % 6.5 %; Neutrophils # 3.23 10^3/uL (1.8-7.7); Neutrophils % 51.4 %; Nucleated Red Blood Cells % 0 %; Platelet Count 263 10^3/cmm (130-400); Red Blood Count 4.53 10^6/uL (4.1-5.3); Red Cell Distribution Width 12.7 % (12.1-15.1); White Blood Count 6.3 10^3/uL (4.0-10.0)
[2022-04-07 12:53] LABS: Urine Appearance Bloody (CLEAR); Urine Color Red (Yellow); pH Urine 6.5 (5-7)
[2022-04-07 12:54] LABS: Add Urine Microscopic? YES; Bilirubin Urine Neg (Negative); Blood Urine 3+ (Negative); Glucose Urine UA Norm (Normal); Ketones Urine Negative (Negative); Leukocyte Esterase Urine Trace (Negative); Nitrate Urine Negative (Negative); Protein Urine Trace (Negative); Urobilinogen Urine Norm (Negative)
[2022-04-07 12:55] LABS: RBC Urine TOO NUMEROUS TO CNT /hpf (0-2)
[2022-04-07 12:56] LABS: Bacteria Urine TRACE /hpf; Squamous Epithelial Cell Urine RARE /hpf (0-5)
[2022-04-07 12:57] LABS: Add Urine Culture? Yes
[2022-04-07] MEDS: morphine 4 mg/mL SDV 1 mL IVP (13:29)
[2022-04-07 14:32] VITALS: BP 133/79; PULSE 91; RESP 18; TEMP 36.6; O2SAT 96
--- NOTE | 2022-04-08 09:14 | DCPLANNER ---
Addendum entered by Nadine Castillo 04/17/22 13:52: manager steel was told that patient was already seen in clinic on 03/19/[address] Marsh, surgery scheduled for 05/08/22, Dr Marsh's surgery schedule is full at this time. Clinic spoke with patient and notified her Original Note: manager steel had message to schedule a follow up appointment for patient with [facility]. manager steel sent patients information to the front office staff at [facility]. Patients information will be printed and reviewed. Clinic will call patient with appointment information.
== END 2022-04-07 14:35 | disposition home or self-care (01) ==
PROVIDERS: Emergency Provider Physician Assistant
DX: N83.201 Unspecified ovarian cyst, right side (principal); N93.9 Abnormal uterine and vaginal bleeding, unspecified; R10.2 Pelvic and perineal pain; G89.29 Other chronic pain
CPT/HCPCS: 76830; 81001; 81025; 85025; 87086; 96374; 99284; E0352; J2270

== ENCOUNTER 2022-04-12 15:12 | Emergency (ER) | payer MEDICAID, SELFPAY ==
[2022-04-12 15:24] VITALS: BP 123/88; PULSE 89; RESP 16; TEMP 37; O2SAT 97; BMI 50.9
--- NOTE | 2022-04-12 15:48 | CTR_ITS ---
PROCEDURE INFORMATION: Exam: CT Head Without Contrast Exam date and time: 04/12/2022 4:07 PM Age: 26 years old Clinical indication: Pain; Headache; Additional info: Migraine for 3 days- worst migraine TECHNIQUE: Imaging protocol: Computed tomography of the head without contrast. Radiation optimization: All CT scans at this facility use at least one of these dose optimization techniques: automated exposure control; mA and/or kV adjustment per patient size (includes targeted exams where dose is matched to clinical indication); or iterative reconstruction. COMPARISON: CT head wo con* [id number] 08/06/2021 6:16 PM RADIATION DOSE METRICS: Total DLP (mGy-cm): 776.68 FINDINGS: Brain: No acute intracranial hemorrhage, cerebral edema, or midline shift. Cerebral ventricles: No hydrocephalus. Paranasal sinuses: There is no acute sinusitis. Mastoid air cells: Visualized mastoid air cells are well aerated. Orbital cavities: The visualized orbits appear unremarkable. Bones/joints: No acute fracture. Soft tissues: Unremarkable. CT/CT head wo con* [id number] IMPRESSION: No acute intracranial abnormality.
--- NOTE | 2022-04-12 15:50 | W.ED.HA ---
HPI - Headache General: Chief Complaint: Headache Stated Complaint: n/v Time Seen by Provider: 04/12/22 15:30 History of Present Illness: Patient is a 26-year-old female comes to the ED with a migraine. Patient has a history of migraines. Migraine started approximately 3 days ago. She is having nausea and vomiting as well. She says she is unable to keep any food, fluids or meds down. She is taken [id number] Tylenol, Benadryl and ibuprofen and has thrown all of them up immediately afterwards. She says this is the worst migraine she has had and they usually do not last this long. Migraine is rated 10 out of 10 and is located behind left eye and in the left tenriism region. She also reports some pain in the back of her head and neck as well. Bright lights make headache worse. Denies any neuro symptoms. Patient denies any chance of being and says she just finished her menstrual period 2 days ago. Associated symptoms: Reports nausea and vomiting; Deny chest pain, fever(s) or rash Review of Systems Const: Denies: fever(s), chills or fatigue Eyes: Reports: photophobia; Denies: change in vision or eye discomfort ENMT: Denies: throat pain, odynophagia, nasal discharge or nasal congestion Card: Denies: chest pain, palpitations, edema, swelling of feet/ankles, dyspnea on exertion or orthopnea Resp: Denies: dyspnea, productive cough or non-productive cough GI: Reports: nausea and vomiting; Denies: abdominal pain, diarrhea, constipation or hematochezia : Denies: flank pain, dysuria or hematuria Musc: Denies: neck pain, back pain or extremity swelling Skin/Breast: Denies: rash or new lesions Neuro: Reports: headache(s); Denies: numbness in extremities or weakness in extremities PFSH ED PFSH: Surgical History No pertinent past surgical history Family History Mother Bleeding disorder Stroke Thyroid condition Breast cancer, Onset Age: 23 been diagnosed twice Father Hypertension Stroke Grandmother Stroke paternal Heart disease paternal Breast cancer maternal and paternal 50's Denies family history of Colon cancer Ovarian cancer Diabetes Clotting disorder Hyperlipidemia Anesthesia complication Uterine cancer Social History Alcohol intake: never Lives independently: Yes Household members: family Marital status: Legally Current occupational status: employed 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 History of recent travel: No Current gender identity: Female Female Reproductive History: Date of last menstrual period: 04/05/22 Physical Exam Const: COMMON NORMALS: patient oriented x3 and alert GENERAL APPEARANCE: cooperative HENMT: COMMON NORMALS: normocephalic HEAD & SCALP: normocephalic MOUTH: Normal oral and palatal mucosa present THROAT: posterior oropharynx normal and uvula midline Eye: COMMON NORMALS: Equal, round and reactive pupils present, EOMs intact bilaterally and conjunctivae normal CONJUNCTIVA: Yes conjunctivae normal PUPIL: Yes Equal, round and reactive pupils present Neck/C-Spine: COMMON NORMALS: supple GENERAL: Yes normal visual inspection Resp: COMMON NORMALS: normal respiratory effort, No retractions, No use of accessory muscles and clear to auscultation bilaterally AUSCULTATION: clear to auscultation bilaterally Cardio: COMMON NORMALS: regular rate, regular rhythm, S1 normal heart sound present, S2 normal heart sound present, No gallops present (Cardio), No clicks present (Cardio), No murmurs present (Cardio) and Peripheral pulses 2+ throughout RATE: regular rate RHYTHM: regular rhythm HEART SOUNDS: S1 normal heart sound present and S2 normal heart sound present PERIPHERAL PULSES: Peripheral pulses 2+ throughout GI: COMMON NORMALS: Normal to inspection, nondistended, normoactive bowel sounds present, Soft to palpation, non-tender and no masses PALPATION: Yes Soft to palpation : COMMON NORMALS: Yes no CVA tenderness BLADDER/KIDNEY EXAM: Yes no CVA tenderness Back/Pelvis: COMMON NORMALS: no CVA tenderness Extremity: COMMON NORMALS: normal to inspection Neuro: COMMON NORMALS: patient oriented x3, CN's II-XII intact bilaterally, moves all extremities, no focal motor deficits and no sensory deficits noted SENSORIUM/ORIENTATION: Yes alert SENSORY EXAM: Yes extremities (intact) MOTOR EXAM: 5/5 motor strength present throughout Skin: GENERAL SKIN EXAM: dry skin Course Reevaluation(s): Reevaluation #1: After patient received migraine cocktail of meds I reevaluated her. She said her headache had improved greatly she now rates it a 5 out of 10 and says it is manageable. Time: 17:00 Vital Signs: Vital signs: Vital Signs Temperature 98.6 F 04/12/22 15:24 Pulse Rate 89 04/12/22 15:24 Respiratory Rate 16 04/12/22 15:24 Blood Pressure 123/88 04/12/22 15:24 Pulse Oximetry 97 04/12/22 15:24 MDM - Headache Medical Decision Making Patient is a 26-year-old female comes to the ED with migraine. She has had migraines in the past but says this migraine is worse than previous migraines and has lasted for 3 days. Vitals stable. Exam is benign and no neuro deficits noted. CT of head shows no acute findings. White blood cell count 2.9 but the rest of CBC and CMP were unremarkable. Patient was given IV migraine med cocktail and her headache improved. Patient diagnosed with a migraine and neutropenia and was stable for discharge home. Patient was told to follow-up with her PCP within the next 3 to 5 days for reevaluation and to have her white blood cell count rechecked as well. Return to ED precautions given. Patient understood agree with plan. Lab Data I reviewed the patient's lab results. : 04/12/22 15:36 04/12/22 15:[address] 04/12/22 15:48 IMPRESSION: No acute intracranial abnormality. Laboratory Results WBC 2.9 10^3/uL (4.0-10.0) L 04/12/22 15:36 RBC 4.71 10^6/uL (4.1-5.3) 04/12/22 15:36 Hgb 13.4 g/dL (11.5-15.3) 04/12/22 15:36 Hct 39.9 % (37.0-47.0) 04/12/22 15:36 MCV 84.7 fl (81-99) 04/12/22 15:36 MCH 28.5 pg (28.0-34.0) 04/12/22 15:36 MCHC 33.6 g/dL (30.0-36.0) 04/12/22 15:36 RDW 12.8 % (12.1-15.1) 04/12/22 15:36 Plt Count 201 10^3/cmm (130-400) 04/12/22 15:36 MPV 10.1 fL (7.4-10.4) 04/12/22 15:36 Neut % (Auto) 40.9 % 04/12/22 15:36 Lymph % (Auto) 39.9 % 04/12/22 15:36 [place] % (Auto) 17.8 % 04/12/22 15:36 Eos % (Auto) 0.0 % 04/12/22 15:36 Baso % (Auto) 0.7 % 04/12/22 15:36 Neut # (Auto) 1.17 10^3/uL (1.8-7.7) L 04/12/22 15:36 Lymph # (Auto) 1.1 10^3/uL (0.8-4.8) 04/12/22 15:36 [place] # (Auto) 0.5 10^3/uL (0.2-0.9) 04/12/22 15:36 Eos # (Auto) 0.0 10^3/uL (0.0-0.8) 04/12/22 15:36 Baso # (Auto) 0.0 10^3/uL (0.0-0.1) 04/12/22 15:36 Nucleated RBC % (auto) 0 % 04/12/22 15:36 Nucleated RBCs # 0.0 /100WBC 04/12/22 15:36 Sodium 139 mmol/L (136-145) 04/12/22 15:36 Potassium 3.8 mmol/L (3.5-5.1) 04/12/22 15:36 Chloride 101 mmol/L (98-107) 04/12/22 15:36 Carbon Dioxide 24 mmol/L (22-29) 04/12/22 15:36 Anion Gap 17.8 (5-19) 04/12/22 15:36 BUN 7 mg/dL (6-20) 04/12/22 15:36 Creatinine 0.7 mg/dL (0.5-0.9) 04/12/22 15:36 GFR Calculation 101.1 mL/min (90-130) 04/12/22 15:36 Glucose 104 mg/dL (65-115) 04/12/22 15:36 Calculated Osmolality 286 mOsm/kg (285-295) 04/12/22 15:36 Calcium 9.2 mg/dL (8.5-10.5) 04/12/22 15:36 Discharge Plan Discharge Patient Disposition: Home Clinical Impression: Migraine Qualifiers: Migraine type: without aura Status migrainosus presence: without status migrainosus Intractability: not intractable Qualified Code(s): G43.009 - Migraine without aura, not intractable, without status migrainosus Neutropenia Qualifiers: Neutropenia type: unspecified Qualified Code(s): D70.9 - Neutropenia, unspecified Condition: Stable Prescriptions: No Action norgestimate-ethinyl estradiol [Sprintec (28)] 0.25-35 mg-mcg tablet 1 tab PO DAILY Qty: 28 0RF Rx Instructions: cancel script for prn, she should be taking one tablet daily naproxen 500 mg tablet 500 mg PO BID PRN (Reason: pain) Qty: 10 0RF citalopram 20 mg Tablet 20 mg PO DAILY 0RF buspirone 10 mg Tablet 10 mg PO BID PRN (Reason: Anxiety) 0RF Discharge Orders: Discharge ED (Routine); Ordered 04/12/22 Ordered By: Otto Barraza Discharge Diet: Regular Discharge Activity: Increase activity as tolerated Patient Instructions: Migraine Headache (ED) Activity Restrictions/Additional Instructions: Follow-up with medical provider as directed in the next 3-5 days for reevaluation and to recheck white blood cell count. Continue taking all home medications as previously prescribed. Return to the ER or your medical provider if condition worsens. Please read and understand discharge instructions. Thank you for choosing [facility] for your healthcare needs today. Please realize this is an emergency room and that we are providing you with a medical screening exam and this may not be complete and all inclusive of all the testing and or work up that you may need to determine your ailment or severity of your illness. It is very important that you follow up as instructed or that you return to the Emergency Department should you have concerns or if your condition changes or worsens in any way. Coding Level of Care Code ED Front Of House Manager for Aracely De Leon Exam Comprehensive
[2022-04-12 15:56] LABS: Basophils % 0.7 %; Hematocrit 39.9 % (37.0-47.0); Hemoglobin 13.4 g/dL (11.5-15.3); Lymphocytes # 1.1 10^3/uL (0.8-4.8); Lymphocytes % 39.9 %; Mean Corpuscular HGB Conc 33.6 g/dL (30.0-36.0); Mean Corpuscular Hemoglobin 28.5 pg (28.0-34.0); Mean Corpuscular Volume 84.7 fl (81-99); Mean Platelet Volume 10.1 fL (7.4-10.4); Monocytes # 0.5 10^3/uL (0.2-0.9); Monocytes % 17.8 %; Neutrophils # 1.17 10^3/uL (1.8-7.7); Neutrophils % 40.9 %; Nucleated Red Blood Cells % 0 %; Platelet Count 201 10^3/cmm (130-400); Red Blood Count 4.71 10^6/uL (4.1-5.3); Red Cell Distribution Width 12.8 % (12.1-15.1); White Blood Count 2.9 10^3/uL (4.0-10.0)
[2022-04-12 16:19] LABS: Anion Gap 17.8 (5-19); Blood Urea Nitrogen 7 mg/dL (6-20); Calcium 9.2 mg/dL (8.5-10.5); Carbon Dioxide 24 mmol/L (22-29); Chloride 101 mmol/L (98-107); Glomerular Filtration Rate 101.1 mL/min (90-130); Glucose 104 mg/dL (65-115); Osmolality Calculated 286 mOsm/kg (285-295); Potassium 3.8 mmol/L (3.5-5.1); Sodium 139 mmol/L (136-145)
[2022-04-12] MEDS: ketorolac 30 mg/mL INJ IVP (16:38)
[2022-04-12] MEDS: metoclopramide 5 mg/mL SDV 2 mL 10 MG IVP (16:44)
[2022-04-12] MEDS: diphenhydrAMINE 50 mg/mL SDV 1mL 25 MG IVP (16:46)
[2022-04-12] MEDS: dexamethasone 10 mg/mL INJ IVP (16:47)
[2022-04-12] MEDS: sodium chloride 0.9% 500 ML 999 ML IV (16:56)
[2022-04-12 18:15] VITALS: BP 127/79; PULSE 89; RESP 18; O2SAT 95
== END 2022-04-12 18:13 | disposition home or self-care (01) ==
PROVIDERS: Emergency Provider Physician Assistant
DX: G43.009 Migraine without aura, not intractable, without status migrainosus (principal); D70.9 Neutropenia, unspecified
CPT/HCPCS: 70450; 80048; 85025; 96361; 96374; 96375; 99284; J1100; J1200; J1885; J2765; J7040

== ENCOUNTER 2022-07-31 09:40 | Day surgery (SDC) | payer MEDICAID, SELFPAY ==
[2022-07-29 09:18] VITALS: BMI 51.2
--- NOTE | 2022-07-29 09:47 | P.ANESASSM_ITS ---
Pre-Anesthetic Assessment Height/Weight: Height 1.65 m Weight 139.706 kg Preop Diagnosis: Desire permanent sterilization Operation Date: 07/31/22 11:35 Proposed Procedures p Laparoscopic Salpingectomy 16999,Z30.2(Bilateral) - David Marsh MD Familial anesthetic complications: None Social Tobacco and No alcohol Exam alert, oriented x 3, clear to auscultation bilaterally and regular rate & rhythm Airway Mallampati: Class IV Dentition: full Comments: Comments: small mouth opening Pulmonary Asthma (no inhaler use anymore) CV/HEM None reported hx gestational HTN w/ some arrythmia - no issues since 2019 GI Gastroesophageal Reflux Disease Metabolic Morbid Obesity Neuropsych Seizure (2 seizures in past d/t stress - over a year ago) Anesthetic Plan ASA status: 2 Anesthesia: General Risk of > 500 ml blood loss (7ml/kg in children): No Medications/Allergies Home Medications Medication Instructions Recorded Confirmed Last Taken Type norgestimate 0.25 mg-ethinyl 1 tab PO DAILY Contraception #28 03/19/22 07/29/22 Unknown Rx estradiol 35 mcg tablet (Sprintec tabs (28)) naproxen 500 mg tablet 500 mg PO BID PRN pain #10 tabs 04/04/22 07/29/22 Unknown Rx buspirone 10 mg tablet 10 mg PO BID PRN Anxiety 04/12/22 07/29/22 Unknown History citalopram 20 mg tablet 20 mg PO DAILY 04/12/22 07/29/22 04/12/22 History Allergies Allergy/AdvReac Type Severity Reaction Status Date / Time latex Allergy ALGY-Swell Verified 07/29/22 08:05 Lip/Tongue/Throat Penicillins Allergy ALGY-Swell Verified 07/29/22 08:05 Lip/Tongue/Throat [facility] Anesthesia Surgical History No pertinent past surgical history Family History Mother Bleeding disorder Stroke Thyroid condition Breast cancer, Onset Age: 23 been diagnosed twice Father Hypertension Stroke Grandmother Stroke paternal Heart disease paternal Breast cancer maternal and paternal 50's Denies family history of Colon cancer Ovarian cancer Diabetes Clotting disorder Hyperlipidemia Anesthesia complication Uterine cancer Social History Smoking and tobacco status: current every day smoker (less than 0.5 ppd ) Alcohol intake: never Lives independently: Yes Household members: family Marital status: Legally 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
[2022-07-29 10:03] LABS: Basophils # 0.1 10^3/uL (0.0-0.1); Basophils % 0.7 %; Eosinophils # 0.1 10^3/uL (0.0-0.8); Eosinophils % 1.7 %; Hematocrit 39.7 % (37.0-47.0); Hemoglobin 13.3 g/dL (11.5-15.3); Lymphocytes # 2.8 10^3/uL (0.8-4.8); Lymphocytes % 37.5 %; Mean Corpuscular HGB Conc 33.5 g/dL (30.0-36.0); Mean Corpuscular Hemoglobin 28.8 pg (28.0-34.0); Mean Corpuscular Volume 85.9 fl (81-99); Mean Platelet Volume 10.2 fL (7.4-10.4); Monocytes # 0.4 10^3/uL (0.2-0.9); Monocytes % 5.6 %; Neutrophils # 4.05 10^3/uL (1.8-7.7); Neutrophils % 54.2 %; Nucleated Red Blood Cells % 0 %; Platelet Count 299 10^3/cmm (130-400); Red Blood Count 4.62 10^6/uL (4.1-5.3); Red Cell Distribution Width 12.9 % (12.1-15.1); White Blood Count 7.5 10^3/uL (4.0-10.0)
[2022-07-29 10:08] LABS: OR HCG Qualitative Urine Negative (Negative)
[2022-07-29 10:28] LABS: Alanine Aminotransferase 31 U/L (0-33); Alkaline Phosphatase 101 U/L (35-105); Aspartate Amino Transferase 36 U/L (0-32); Blood Urea Nitrogen 10 mg/dL (6-20); Calcium 9.3 mg/dL (8.5-10.5); Carbon Dioxide 26 mmol/L (22-29); Chloride 100 mmol/L (98-107); Globulin 3.5 g/dL (1.3-4.6); Glomerular Filtration Rate 119.9 mL/min (90-130); Glucose 103 mg/dL (65-115); Osmolality Calculated 281 mOsm/kg (285-295); Sodium 136 mmol/L (136-145); Total Bilirubin 0.4 mg/dL (0.15-1.2); Total Protein 7.5 g/dL (6.6-8.7)
[2022-07-29 10:39] LABS: Blood Urine Neg (Negative); Glucose Urine UA Norm (Normal); Ketones Urine Negative (Negative); Nitrate Urine Negative (Negative); Protein Urine Neg (Negative); Specific Gravity, Urine 1.025 (1.005-1.030); Urine Appearance Hazy (CLEAR); Urine Color Yellow (Yellow); pH Urine 5 (5-7)
[2022-07-29 10:40] LABS: Add Urine Microscopic? YES; Bilirubin Urine Neg (Negative); Leukocyte Esterase Urine 2+ (Negative); Urobilinogen Urine Norm (Negative)
[2022-07-29 10:42] LABS: Add Urine Culture? No; Bacteria Urine 2+ /hpf; Squamous Epithelial Cell Urine 15-25 /hpf (0-5); WBC Urine 15-25 /hpf (0-5)
[2022-07-31] VITALS (10 sets, daily range): BP systolic 120–142; BP diastolic 67–86; PULSE 62–93; RESP 17–20; TEMP 36.4–36.5; O2SAT 95–99
--- NOTE | 2022-07-31 10:00 | W.PM.OPSUD ---
Surgery/Procedure H&P Update DATE OF PROCEDURE: July 31, 2022 DATE H&P PERFORMED: 07/29/22 H&P UPDATE INFORMATION: I have reviewed H&P completed within last 30 days, I have examined patient prior to procedure and No changes to prior documentation PREOP DIAGNOSIS: Desire permanent sterilization PLANNED PROCEDURE: Operation Date: 07/31/22 11:15 Proposed Procedures p Laparoscopic Salpingectomy 98756,Z30.2(Bilateral) - David Marsh MD
[2022-07-31] MEDS: midazolam 1 mg/mL INJ 2 mL 2 MG IVP (10:27)
[2022-07-31] MEDS: sodium chloride 0.9% 1,000 ML 30 ML IV (10:27)
[2022-07-31] MEDS: scopolamine 1.5 Patch 1 PATCH TRANSDERMA (10:28)
--- NOTE | 2022-07-31 10:58 | P.ANESUD_ITS ---
Pre-Anesthetic Update Pre-Anesthetic Assessment: Date of Surgery/Procedure: 07/31/22 Preop Celia gnosis: Desire permanent sterilization Proposed Procedure: Operation Date: 07/31/22 11:15 Proposed Procedures p Laparoscopic Salpingectomy 70064,Z30.2(Bilateral) - David Marsh MD Any changes to Pre-Anesthetic Assessment?: No Last Intake: Intake Last Liquid Date 07/30/22 Last Liquid Time 21:00 Last Solid Date 07/30/22 Last Solid Time 21:00 Vitals: Temperature 97.6 F 07/31/22 10:01 Temperature Source Temporal Artery S can 07/31/22 10:01 Pulse Rate 65 07/31/22 10:01 Pulse Rhythm 07/31/22 10:01 Pulse Strength 3+ Normal 07/31/22 10:01 Respiratory Rate 18 07/31/22 10:01 Blood Pressure 127/71 07/31/22 10:01 Blood Pressure Deidra n 89 07/31/22 10:01 Pulse Oximetry 97 07/31/22 10:01 Oxygen Delivery Me thod 07/31/22 10:01 Exam: Pre-Anes Outpt Exam: alert, oriented x 3, clear to auscultation bilaterally and regular rate & rhythm Cardiac Studies: No Data to Display
[2022-07-31] MEDS: vancomycin 1,000 MG in sodium chloride 0.9% 250 ML 250 MG IV (13:25)
--- NOTE | 2022-07-31 14:41 | PM.OP ---
Operative Report Date of procedure: July 31, 2022 Pre-op diagnosis: Preop Diagnosis Desire permanent sterilization Post-op diagnosis: Same as above Procedure done: Laparoscopic bilateral salpingectomy Specimens removed/disposition: Left and right fallopian tube Surgeon: David Marsh MD Estimated blood loss (mL): 5 Urine output (mL): 100 Procedure: After informed consent, the patient was taken to the operating room where general anesthesia was administered. She was placed in the dorsal lithotomy position and prepped and draped in sterile fashion. Pre-Procedure Time-Out verifying the correct patient identity, correct procedure verified with consent, correct site and side, correct patient position, availability of correct implants and any special equipment or requirements was performed and acknowledge by the OR team. The patient was examined under anesthesia and found to have a normal uterus with normal adnexa. A weighted speculum was placed in the vagina, and the anterior lip of cervix was grasped with the single toothed tenaculum. A uterine manipulator was advanced into the endocervical canal and uterus. The tenaculum was removed after uterine manipulator was secured. The speculum was removed from the vagina. An intraumbilical incision was made with a scalpel. While tenting up on the abdomen, a Verres needle was admitted into the intra-abdominal cavity. A saline drop test was performed and noted to be within normal limits. Pneumoperitoneum was attained with 4 liters of carbon dioxide. The Verres needle was removed. A 5 mm Opitc view trocar and sleeve were admitted into the abdomen and laparoscopic confirmation of location was achieved. A second incision was made 3 cm above the symphysis pubis, and a 5 mm trocar sleeves were admitted into the abdomen under direct laparoscopic visualization without complication. A survey revealed normal abdominal anatomy with the exception of string adhesion to the right lower anterior abdominal wall. A 5 mm blunt probe was advanced through the second trocar sleeve, and light manipulation of ovaries and uterus to assess the posterior aspects was performed. The pelvic survey shows normal uterus, left and right adnexa. The left ovary was noted with a follicular cyst. The string adhesion was fulgurated and transected with good hemostasis with the Enseal. The patient was placed into Trendelenburg position. The fallopian tubes were inspected bilaterally and the fimbriated ends of the fallopian tubes were visualized bilaterally. Attention was then directed to the right side. The fallopian tube and mesosalpinx were grasped and the underlying mesosalpinx was cauterized and cut using the Enseal device. Serial cauterization and cutting was used to separate the fallopian tube from the underlying mesosalpinx until it could be amputated cutting it approximated 2 cm from the cornua. Attention was then turned to the contralateral fallopian tube, which was removed in similar fashion. Both specimens were removed through the trocar and sent to pathology. The instruments were removed. The suprapubic trocar port was removed under direct visualization insuring good hemostasis. The carbon dioxide was allowed to escape from the abdomen. The intraumbilical trocar sleeve was withdrawn under visualization with laparoscope in the sleeve to insure hemostasis. The skin incisions were closed with 3-O Monocryl subcuticular stich and Dermabond. The instruments were removed from the vagina, and excellent hemostasis was noted. The patient tolerated the procedure well, and sponge, lap and needle count were correct times two. The patient was taken to the recovery room in good condition.
[2022-07-31] MEDS: fentaNYL 50 mcg/mL INJ 2mL IVP (15:09)
[2022-07-31] MEDS: ibuprofen 800 mg tablet PO (15:45)
== END 2022-07-31 16:36 | disposition home or self-care (01) ==
PROVIDERS: PCP Nurse Practitioner Family; Visit Provider Obstetrics & Gynecology
PROC: (CPT 58661; principal; 2022-07-31 11:05)
DX: Z30.2 Encounter for sterilization (principal); I10 Essential (primary) hypertension; K21.9 Gastro-esophageal reflux disease without esophagitis; E66.01 Morbid (severe) obesity due to excess calories; Z68.43 Body mass index [BMI] 50.0-59.9, adult; F17.210 Nicotine dependence, cigarettes, uncomplicated
CPT/HCPCS: 58661; 36415; 80053; 81001; 84703; 85025; 86850; 86900; 88302; J1100; J1200; J1885; J2250; J2405; J2704; J2710; J3010; J3370; J3490; J7030; J7050

== ENCOUNTER → 2022-09-20 09:36 | Outpatient (BNVA) | payer MEDICAID, SELFPAY | PROVIDERS: PCP Nurse Practitioner Family; Visit Provider Obstetrics & Gynecology | DX: R10.2 Pelvic and perineal pain (principal) | CPT/HCPCS: 76830 ==

== ENCOUNTER → 2022-09-24 11:07 | Outpatient (BNVA) | payer MEDICAID, SELFPAY | PROVIDERS: PCP Nurse Practitioner Family; Visit Provider Obstetrics & Gynecology | DX: R39.9 Unspecified symptoms and signs involving the genitourinary system (principal); R10.2 Pelvic and perineal pain; G89.29 Other chronic pain | CPT/HCPCS: 81000 ==

== ENCOUNTER 2022-10-09 10:01 | Day surgery (SDC) | payer MEDICAID, SELFPAY ==
[2022-10-07 09:30] VITALS: BMI 51.2
--- NOTE | 2022-10-07 09:55 | ANES.PREANE2 ---
Pre-Anesthetic Assessment Height/Weight: Height 1.65 m Weight 139.706 kg Preop Diagnosis: Desire permanent sterilization Operation Date: 10/09/22 13:50 Proposed Procedures p Diagnostic laparoscopy 83635 R10.2,G89.29 Patient is allergic to Latex(Not Applicable) - David Marsh MD Familial anesthetic complications: none Social Tobacco and No alcohol Exam alert, oriented x 3, clear to auscultation bilaterally and regular rate & rhythm Airway Mallampati: Class II Dentition: full Pulmonary Asthma GI Gastroesophageal Reflux Disease Metabolic Morbid Obesity Neuropsych Seizure (2 seizures > 1 year ago - d/t emotional stress) Anesthetic Plan ASA status: 2 Anesthesia: General Risk of > 500 ml blood loss (7ml/kg in children): No Medications/Allergies Home Medications Medication Instructions Recorded Confirmed Last Taken Type buspirone 10 mg tablet 10 mg PO BID PRN Anxiety 04/12/22 10/07/22 08/08/22 History citalopram 20 mg tablet 20 mg PO DAILY 04/12/22 10/07/22 10/06/22 History acetaminophen 325 mg capsule 325 mg PO Q4H PRN fever or pain 07/31/22 10/07/22 Unknown Rx #60 caps ibuprofen 800 mg tablet 800 mg PO TID PRN pain #60 tabs 07/31/22 10/07/22 10/07/22 Rx Allergies Allergy/AdvReac Type Severity Reaction Status Date / Time hydrocodone Allergy ADR-Irritab Verified 10/07/22 08:11 le latex Allergy ALGY-Swell Verified 10/07/22 08:11 Lip/Tongue/Throat Penicillins Allergy ALGY-Swell Verified 10/07/22 08:11 Lip/Tongue/Throat PFSH Anesthesia Surgical History No pertinent past surgical history Family History Mother Bleeding disorder Stroke Thyroid condition Breast cancer, Onset Age: 23 been diagnosed twice Father Hypertension Stroke Grandmother Stroke paternal Heart disease paternal Breast cancer maternal and paternal 50's Denies family history of Colon cancer Ovarian cancer Diabetes Clotting disorder Hyperlipidemia Anesthesia complication Uterine cancer Social History Smoking and tobacco status: current every day smoker (less than 0.5 ppd ) Alcohol intake: never Lives independently: Yes Household members: family Marital status: Legally 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
[2022-10-07 10:06] LABS: Basophils % 0.4 %; Eosinophils # 0.1 10^3/uL (0.0-0.8); Hematocrit 40.8 % (37.0-47.0); Hemoglobin 13.6 g/dL (11.5-15.3); Lymphocytes # 2.8 10^3/uL (0.8-4.8); Lymphocytes % 41.6 %; Mean Corpuscular HGB Conc 33.3 g/dL (30.0-36.0); Mean Corpuscular Hemoglobin 28.9 pg (28.0-34.0); Mean Corpuscular Volume 86.8 fl (81-99); Monocytes # 0.5 10^3/uL (0.2-0.9); Monocytes % 6.6 %; Neutrophils # 3.39 10^3/uL (1.8-7.7); Neutrophils % 50.1 %; Nucleated Red Blood Cells % 0 %; Platelet Count 299 10^3/cmm (130-400); Red Cell Distribution Width 12.8 % (12.1-15.1); White Blood Count 6.8 10^3/uL (4.0-10.0)
[2022-10-07 10:18] LABS: Add Urine Microscopic? YES; Bilirubin Urine Neg (Negative); Blood Urine Neg (Negative); Glucose Urine UA Norm (Normal); Ketones Urine Negative (Negative); Leukocyte Esterase Urine Trace (Negative); Nitrate Urine Negative (Negative); Protein Urine Neg (Negative); Squamous Epithelial Cell Urine 0-4 /hpf (0-5); Urine Appearance Clear (CLEAR); Urine Color Yellow (Yellow); Urobilinogen Urine Norm (Negative); WBC Urine 0-4 /hpf (0-5); pH Urine 6 (5-7)
[2022-10-07 10:19] LABS: Add Urine Culture? Yes; Bacteria Urine 4+ /hpf
[2022-10-07 10:29] LABS: Alanine Aminotransferase 21 U/L (0-33); Alkaline Phosphatase 86 U/L (35-105); Anion Gap 13.1 (5-19); Aspartate Amino Transferase 15 U/L (0-32); Blood Urea Nitrogen 11 mg/dL (6-20); Calcium 9.4 mg/dL (8.5-10.5); Carbon Dioxide 24 mmol/L (22-29); Chloride 104 mmol/L (98-107); Globulin 3.1 g/dL (1.3-4.6); Glomerular Filtration Rate 119.9 mL/min (90-130); Glucose 101 mg/dL (65-115); Osmolality Calculated 284 mOsm/kg (285-295); Potassium 4.1 mmol/L (3.5-5.1); Sodium 137 mmol/L (136-145); Total Bilirubin 0.3 mg/dL (0.15-1.2); Total Protein 7.1 g/dL (6.6-8.7)
[2022-10-09] VITALS (10 sets, daily range): BP systolic 98–164; BP diastolic 53–86; PULSE 64–83; RESP 14–20; TEMP 36.2–36.4; O2SAT 93–100
[2022-10-09 10:20] LABS: OR HCG Qualitative Urine Negative (Negative)
[2022-10-09] MEDS: sodium chloride 0.9% 500 ML IV (10:32)
[2022-10-09] MEDS: enoxaparin 30 mg/0.3 mL Syringe SUBCUT (10:32)
[2022-10-09] MEDS: sodium chloride 0.9% 1,000 ML 30 ML IV (10:33)
[2022-10-09] MEDS: scopolamine 1.5 Patch 1 PATCH TRANSDERMA (10:45)
--- NOTE | 2022-10-09 11:04 | W.PM.OPSUD ---
Surgery/Procedure H&P Update DATE OF PROCEDURE: October 09, 2022 DATE H&P PERFORMED: 09/24/22 H&P UPDATE INFORMATION: I have reviewed H&P completed within last 30 days, I have examined patient prior to procedure and No changes to prior documentation PREOP DIAGNOSIS: Pelvic pain PLANNED PROCEDURE: Operation Date: 10/09/22 11:50 Proposed Procedures p Diagnostic laparoscopy 51433 R10.2,G89.29 Patient is allergic to Latex(Not Applicable) - David Marsh MD
[2022-10-09] MEDS: vancomycin 1,000 MG in sodium chloride 0.9% 250 ML 250 MG IV (11:44)
--- NOTE | 2022-10-09 12:33 | P.OP_ITS ---
Operative Report Date of procedure: October 09, 2022 Pre-op diagnosis: Preop Diagnosis Pelvic pain Post-op diagnosis: same Procedure done: Diagnostic laparoscopy Surgeon: David Marsh MD Estimated blood loss (mL): 5 IV fluids (mL): 400 Urine output (mL): 25 Findings: Normal pelvic organs uterus and ovaries post bilateral salpingectomy. No adhesions or lesions noted Procedure: After informed consent, the patient was taken to the operating room where general anesthesia was administered. The patient was examined under anesthesia and found to have a normal uterus with normal adnexa. She was placed in the dorsal lithotomy position and prepped and draped in sterile fashion. Pre- Procedure Time-Out verifying the correct patient identity, correct procedure verified with consent, correct site and side, correct patient position, availability of correct implants and any special equipment or requirements was performed and acknowledge by the OR team. A weighted speculum was placed in the vagina, and the anterior lip of cervix was grasped with the single toothed tenaculum. A uterine manipulator was advanced into the endocervical. Tenaculum was removed after uterine manipulator was secured. The speculum was removed from the vagina. An intraumbilical incision was made with a scalpel. While tenting up on the abdomen, a Verres needle with sleeve was admitted into the intra-abdominal cavity. A saline drop test was performed and noted to be within normal limits. Pneumoperitoneum was attained with 4 liters of carbon dioxide. The Verres needle was removed. A 5 mm trocar and sleeve were admitted into the abdomen and laparoscopic confirmation of location was achieved, A second incision was made 3 cm above the symphysis pubis, and a 5 mm trocar and sleeve were admitted into the abdomen under direct, laparoscopic visualization without complication. A survey revealed normal abdominal anatomy and pelvic survey shows normal uterus, left and right ovaries. Post bilateral salpingectomy. A 5 mm blunt probe was advanced through the second trocar sleeve, and light manipulation of ovaries and uterus to assess the posterior aspects was performed. No adhesions or lesions noted. The carbon dioxide was allowed to escape from the abdomen. The instruments were removed, and skin cover with a bandage. The instruments were removed from the vagina, and excellent hemostasis was noted. The patient tolerated the procedure well, and sponge, lap and needle count were correct times two. The patient taken to the recovery room in good condition.
[2022-10-09] MEDS: midazolam 1 mg/mL INJ 2 mL 2 MG IVP (12:48)
[2022-10-09] MEDS: acetaminophen 325 mg Tablet PO (13:28)
--- NOTE | 2022-10-09 13:56 | PC.NURSE ---
Catheter removed prior to discharge.
--- NOTE | 2022-10-09 15:03 | ANE.PACU2 ---
Inpatient post-anesthesia follow up: Airway intact: Yes Vital signs: Temperature 97.1 F Pulse Rate 69 Respiratory Rate 18 Blood Pressure 98/64 Pulse Oximetry 100 Oxygen Delivery Me thod Room Air Oxygen Flow Rate Fraction of Inspir ed Oxygen Hydration adequate: Yes Nausea and vomiting: No Pain level: 1 Mental status: Baseline
== END 2022-10-09 14:05 | disposition home or self-care (01) ==
PROVIDERS: PCP Nurse Practitioner Family; Visit Provider Obstetrics & Gynecology
PROC: (CPT 49320; principal; 2022-10-09 11:40)
DX: R10.2 Pelvic and perineal pain (principal); K21.9 Gastro-esophageal reflux disease without esophagitis; E66.01 Morbid (severe) obesity due to excess calories; Z68.43 Body mass index [BMI] 50.0-59.9, adult; F17.210 Nicotine dependence, cigarettes, uncomplicated
CPT/HCPCS: 49320; 36415; 80053; 81001; 81025; 84703; 85025; 86850; 86900; 87086; J1100; J1650; J2250; J2405; J2704; J3010; J3370; J3490; J7030; J7040; J7050

== ENCOUNTER 2022-10-11 17:58 | Emergency (ER) | payer MEDICAID, SELFPAY ==
[2022-10-11 18:03] VITALS: BP 143/81; PULSE 68; RESP 14; TEMP 36.7; O2SAT 98; BMI 51.2
--- NOTE | 2022-10-11 19:33 | W.ED.DIZZY ---
HPI - Dizziness General: Chief Complaint: Dizziness Stated Complaint: Urgent Care sent due to rashes Time Seen by Provider: 10/11/22 19:33 History of Present Illness: HPI Narrative: 27-year-old female comes in today for complaints of rash and itching after laparoscopic surgery 2 days ago. Patient reports recurrent rash on all and with some jitteriness. Patient appears nontoxic. Patient appears in no acute distress. Patient reports rash is improved since arriving to the ER. Associated symptoms: Denies chest pain Review of Systems Const: Denies: fever(s) Card: Denies: chest pain Resp: Denies: dyspnea Skin/Breast: Reports: rash and pruritus Psych: Reports: anxiety PFSH ED PFSH: Surgical History No pertinent past surgical history Family History Mother Bleeding disorder Stroke Thyroid condition Breast cancer, Onset Age: 23 been diagnosed twice Father Hypertension Stroke Grandmother Stroke paternal Heart disease paternal Breast cancer maternal and paternal 50's Denies family history of Colon cancer Ovarian cancer Diabetes Clotting disorder Hyperlipidemia Anesthesia complication Uterine cancer Social History Smoking and tobacco status: current every day smoker (less than 0.5 ppd ) Alcohol intake: never Lives independently: Yes Household members: family Marital status: Legally Current occupational status: employed 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 History of recent travel: No Current gender identity: Female Female Reproductive History: Date of last menstrual period: 07/14/22 Physical Exam Const: COMMON NORMALS: alert HENMT: COMMON NORMALS: normocephalic HEAD & SCALP: normocephalic Neck/C-Spine: COMMON NORMALS: full ROM Resp: COMMON NORMALS: normal respiratory effort and clear to auscultation bilaterally AUSCULTATION: clear to auscultation bilaterally Cardio: COMMON NORMALS: regular rate and regular rhythm RATE: regular rate RHYTHM: regular rhythm Extremity: COMMON NORMALS: normal to inspection Neuro: SENSORIUM/ORIENTATION: Yes alert Skin: COMMON NORMALS: no rashes or lesions noted GENERAL SKIN EXAM: no rashes or lesions noted Course Vital Signs: Vital signs: Vital Signs Temperature 98.1 F 10/11/22 18:03 Pulse Rate 68 10/11/22 18:03 Respiratory Rate 14 10/11/22 18:03 Blood Pressure 143/81 10/11/22 18:03 Pulse Oximetry 98 10/11/22 18:03 Oxygen Delivery Me thod 10/11/22 18:03 MDM - Dizziness Medical Decision Making 27-year-old female comes in today for complaints of itchy, jitteriness, and rash after anesthesia and surgery done 2 days ago. On exam no obvious rashes noted. Lungs are clear to auscultation. Heart rates regular. Vital signs are normal. Differential diagnosis includes but not limited to dermatitis, anxiety, adverse drug effect. Suspect that this is secondary to anesthesia. Reassured patient that no signs of severe distress was noted. Recommended Claritin 1 or 2 tablets every 12 hours as needed for itching and rash. Patient reported understanding and agreed to plan. Discharge Plan Discharge Patient Disposition: Home Clinical Impression: Itching Adverse drug effect Qualifiers: Encounter type: initial encounter Qualified Code(s): T50.905A - Adverse effect of unspecified drugs, medicaments and biological substances, initial encounter Condition: Stable Prescriptions: No Action acetaminophen 325 mg capsule 325 mg PO Q4H PRN (Reason: fever or pain) Qty: 60 0RF ibuprofen 800 mg tablet 800 mg PO TID PRN (Reason: pain) Qty: 60 0RF pantoprazole 40 mg tablet,delayed release (DR/EC) 40 mg PO DAILY acetaminophen 325 mg capsule 325 mg PO Q4H PRN (Reason: fever or pain) Qty: 60 0RF ibuprofen 800 mg tablet 800 mg PO TID PRN (Reason: pain) Qty: 60 0RF citalopram 20 mg Tablet 20 mg PO DAILY buspirone 10 mg Tablet 10 mg PO BID PRN (Reason: Anxiety) Discharge Orders: Discharge ED (Routine); Ordered 10/11/22 Ordered By: Barry Huggins Referrals: Agustina Scott APN [Primary Care Provider] - Discharge Diet: Usual diet Discharge Activity: Increase activity as tolerated Patient Instructions: Adverse Drug Reaction (ED) Activity Restrictions/Additional Instructions: Drink plenty of fluids. Use Claritin 1 to 2 tablets every 12 hours as needed for itching and rash. Avoid spicy foods, extreme temperatures such as really hot or really cold baths, or really acidic foods. These can bring out the rash and make your itching worse. Follow-up with primary care as needed. Return to the emergency department for worsening symptoms such as increased difficulty breathing, chest pain, or new concerns. Coding Level of Care Code ED Ply[employer] Operator for Aracely De Leon
[2022-10-11 20:31] VITALS: BP 144/84; PULSE 61; TEMP 36.7; O2SAT 98
== END 2022-10-11 20:38 | disposition home or self-care (01) ==
PROVIDERS: Emergency Provider Nurse Practitioner Family; PCP Nurse Practitioner Family
DX: L29.9 Pruritus, unspecified (principal); T41.45XA Adverse effect of unspecified anesthetic, initial encounter; F17.210 Nicotine dependence, cigarettes, uncomplicated
CPT/HCPCS: 99282

== ENCOUNTER 2022-10-14 21:24 | Emergency (ER) | payer MEDICAID, SELFPAY ==
[2022-10-14 21:36] VITALS: BP 140/87; PULSE 95; RESP 18; TEMP 37.1; O2SAT 97; BMI 51.9
[2022-10-14 22:37] LABS: Basophils # 0.1 10^3/uL (0.0-0.1); Basophils % 0.5 %; Eosinophils # 0.1 10^3/uL (0.0-0.8); Eosinophils % 1.1 %; Hematocrit 41.6 % (37.0-47.0); Mean Corpuscular HGB Conc 33.7 g/dL (30.0-36.0); Mean Corpuscular Hemoglobin 28.7 pg (28.0-34.0); Mean Corpuscular Volume 85.2 fl (81-99); Mean Platelet Volume 9.8 fL (7.4-10.4); Monocytes # 0.5 10^3/uL (0.2-0.9); Monocytes % 5.2 %; Neutrophils # 6.26 10^3/uL (1.8-7.7); Neutrophils % 62.8 %; Nucleated Red Blood Cells % 0 %; Platelet Count 313 10^3/cmm (130-400); Red Blood Count 4.88 10^6/uL (4.1-5.3); Red Cell Distribution Width 12.8 % (12.1-15.1)
--- NOTE | 2022-10-14 22:43 | ED_ITS ---
HPI - Abdominal Pain General: Chief Complaint: Abdominal Pain Stated Complaint: incision opened post surgery Time Seen by Provider: 10/14/22 22:30 Source: patient Mode of arrival: ambulatory Limitations: no limitations History of Present Illness: 27-year-old female who states that she had a salpingotomy last month and had exploratory surgery last week she states she is not supposed to be lifting states she has been lifting her kids yesterday and today she has been having some diffuse abdominal pain after that she states she has had some slight bleeding from her umbilical incision since stopped she rates her pain a 5 out of 10 denies any fever denies any vomiting denies any diarrhea. Associated Symptoms: Denies chills, dysuria and fever(s) Related Data: Date of Last Menstrual Period: 07/14/22 Review of Systems Const: Denies: fever(s), chills, body aches or change in appetite Eyes: Denies: blurry vision or eye discomfort ENMT: Denies: throat pain or dental pain Card: Denies: chest pain Resp: Denies: dyspnea GI: Reports: abdominal pain : Denies: dysuria Musc: Denies: neck pain or back pain Skin/Breast: Denies: rash Neuro: Denies: headache(s) Psych: Denies: depression Chip/Lymph: Denies: easy bruising All/Imm: Denies: urticaria PFSH ED PFSH: Surgical History No pertinent past surgical history Family History Mother Bleeding disorder Stroke Thyroid condition Breast cancer, Onset Age: 23 been diagnosed twice Father Hypertension Stroke Grandmother Stroke paternal Heart disease paternal Breast cancer maternal and paternal 50's Denies family history of Colon cancer Ovarian cancer Diabetes Clotting disorder Hyperlipidemia Anesthesia complication Uterine cancer Social History Smoking and tobacco status: current every day smoker (less than 0.5 ppd ) Alcohol intake: never Lives independently: Yes Household members: family Marital status: Legally Current occupational status: employed 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 History of recent travel: No Current gender identity: Female Female Reproductive History: Date of last menstrual period: 07/14/22 Physical Exam Const: COMMON NORMALS: no acute distress, patient oriented x3 and healthy appearing HENMT: COMMON NORMALS: normocephalic and atraumatic HEAD & SCALP: normocephalic and atraumatic Eye: COMMON NORMALS: Equal, round and reactive pupils present and EOMs intact bilaterally PUPIL: Yes Equal, round and reactive pupils present Neck/C-Spine: COMMON NORMALS: full ROM and supple Chest: COMMONS NORMALS: normal inspection of the chest and normal palpation of entire chest wall Resp: COMMON NORMALS: normal respiratory effort, No retractions, No use of accessory muscles and clear to auscultation bilaterally AUSCULTATION: clear to auscultation bilaterally Cardio: COMMON NORMALS: regular rate, regular rhythm and No murmurs present (Cardio) RATE: regular rate RHYTHM: regular rhythm GI: COMMON NORMALS: Normal to inspection, nondistended, normoactive bowel sounds present, Soft to palpation, non-tender and no masses PALPATION: Yes Soft to palpation OTHER: Dried blood at her umbilicus no active bleeding Extremity: COMMON NORMALS: normal to inspection and full ROM Neuro: COMMON NORMALS: patient oriented x3, moves all extremities and no focal motor deficits Psych: COMMON NORMALS: mental status grossly normal, Normal thought process present and cooperative THOUGHT PROCESS: Normal thought process present Skin: COMMON NORMALS: no rashes or lesions noted and no wounds GENERAL SKIN EXAM: no rashes or lesions noted Course Vital Signs: Vital signs: Vital Signs Temperature 98.7 F 10/14/22 21:36 Pulse Rate 102 H 10/14/22 22:56 Respiratory Rate 16 10/14/22 22:56 Blood Pressure 123/89 10/14/22 22:56 Pulse Oximetry 95 10/14/22 22:56 Oxygen Delivery Me thod 10/14/22 21:36 MDM - Abdominal Pain Medical Decision Making Patient presents with abdominal pain is likely from lifting postop she is well- appearing her exam is benign blood work is normal do not believe she needs a CT scan she is to follow-up with PCP and return if worsening she understands agrees to plan. Lab Data 10/14/22 22:30 10/14/22 22:30 Labs/Radiology: Laboratory Results WBC 10.0 10^3/uL (4.0-10.0) 10/14/22 22:30 RBC 4.88 10^6/uL (4.1-5.3) 10/14/22: Hgb 14.0 g/dL (11.5-15.3) 10/14/22: Hct 41.6 % (37.0-47.0) 10/14/22: MCV 85.2 fl (81-99) 10/14/22: MCH 28.7 pg (28.0-34.0) 10/14/22: MCHC 33.7 g/dL (30.0-36.0) 10/14/22: RDW 12.8 % (12.1-15.1) 10/14/22: Plt Count 313 10^3/cmm (130-400) 10/14/22: MPV 9.8 fL (7.4-10.4) 10/14/22: Neut % (Auto) 62.8 % 10/14/22: Lymph % (Auto) 30.0 % 10/14/22: [place] % (Auto) 5.2 % 10/14/22: Eos % (Auto) 1.1 % 10/14/22: Baso % (Auto) 0.5 % 10/14/22: Neut # (Auto) 6.26 10^3/uL (1.8-7.7) 10/14/22: Lymph # (Auto) 3.0 10^3/uL (0.8-4.8) 10/14/22: [place] # (Auto) 0.5 10^3/uL (0.2-0.9) 10/14/22: Eos # (Auto) 0.1 10^3/uL (0.0-0.8) 10/14/22: Baso # (Auto) 0.1 10^3/uL (0.0-0.1) 10/14/22: Nucleated RBC % (auto) 0 % 10/14/22: Nucleated RBCs # 0.0 /100WBC 10/14/22: Sodium 137 mmol/L (136-145) 10/14/22: Potassium 4.1 mmol/L (3.5-5.1) 12/05/22 22:30 Chloride 102 mmol/L (98-107) 10/14/22 22:30 Carbon Dioxide 24 mmol/L (22-29) 10/14/22 22:30 Anion Gap 15.1 (5-19) 10/14/22 22:30 BUN 10 mg/dL (6-20) 10/14/22 22:30 Creatinine 0.7 mg/dL (0.5-0.9) 10/14/22 22:30 GFR Calculation 100.4 mL/min (90-130) 10/14/22 22:30 Glucose 114 mg/dL (65-115) 10/14/22 22:30 Calculated Osmolality 284 mOsm/kg (285-295) L 10/14/22 22:30 Calcium 9.7 mg/dL (8.5-10.5) 10/14/22 22:30 Total Bilirubin 0.2 mg/dL (0.15-1.2) 10/14/22 22:30 AST 12 U/L (0-32) 10/14/22 22:30 ALT 18 U/L (0-33) 10/14/22 22:30 Alkaline Phosphatase 105 U/L (35-105) 10/14/22 22:30 Total Protein 7.7 g/dL (6.6-8.7) 10/14/22 22:30 Albumin 4.3 g/dL (3.5-5.2) 10/14/22 22:30 Globulin 3.4 g/dL (1.3-4.6) 10/14/22 22:30 Lipase 25 U/L (13-60) 10/14/22 22:30 Discharge Plan Discharge Patient Disposition: Home Clinical Impression: Abdominal pain Condition: Stable Prescriptions: No Action acetaminophen 325 mg capsule 325 mg PO Q4H PRN (Reason: fever or pain) Qty: 60 0RF ibuprofen 800 mg tablet 800 mg PO TID PRN (Reason: pain) Qty: 60 0RF pantoprazole 40 mg tablet,delayed release (DR/EC) 40 mg PO DAILY acetaminophen 325 mg capsule 325 mg PO Q4H PRN (Reason: fever or pain) Qty: 60 0RF ibuprofen 800 mg tablet 800 mg PO TID PRN (Reason: pain) Qty: 60 0RF citalopram 20 mg Tablet 20 mg PO DAILY buspirone 10 mg Tablet 10 mg PO BID PRN (Reason: Anxiety) Discharge Orders: Discharge ED (Routine); Ordered 10/14/22 Ordered By: Nav Koroma Referrals: Agustina Scott APN [Primary Care Provider] - Discharge Diet: Advance as tolerated Discharge Activity: Resume usual activity Patient Instructions: Abdominal Pain (ED) Coding Level of Care Code ED Plant Technical Specialist for Chg 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
[2022-10-14] MEDS: morphine 4 mg/mL SDV 1 mL IVP (22:53)
[2022-10-14] MEDS: ondansetron 2 mg/ML SDV 2 mL 4 MG IVP (22:53)
[2022-10-14 22:56] VITALS: BP 123/89; PULSE 102; RESP 16; O2SAT 95
[2022-10-14 23:01] LABS: Alanine Aminotransferase 18 U/L (0-33); Albumin Level 4.3 g/dL (3.5-5.2); Alkaline Phosphatase 105 U/L (35-105); Anion Gap 15.1 (5-19); Aspartate Amino Transferase 12 U/L (0-32); Blood Urea Nitrogen 10 mg/dL (6-20); Calcium 9.7 mg/dL (8.5-10.5); Carbon Dioxide 24 mmol/L (22-29); Chloride 102 mmol/L (98-107); Globulin 3.4 g/dL (1.3-4.6); Glomerular Filtration Rate 100.4 mL/min (90-130); Glucose 114 mg/dL (65-115); Lipase 25 U/L (13-60); Osmolality Calculated 284 mOsm/kg (285-295); Potassium 4.1 mmol/L (3.5-5.1); Sodium 137 mmol/L (136-145); Total Bilirubin 0.2 mg/dL (0.15-1.2); Total Protein 7.7 g/dL (6.6-8.7)
[2022-10-14 23:34] VITALS: BP 132/84; PULSE 93; RESP 16; O2SAT 96
== END 2022-10-14 23:25 | disposition home or self-care (01) ==
PROVIDERS: Emergency Provider Emergency Medicine; PCP Nurse Practitioner Family
DX: R10.9 Unspecified abdominal pain (principal); F17.210 Nicotine dependence, cigarettes, uncomplicated
CPT/HCPCS: 36415; 80053; 83690; 85025; 96374; 96375; 99284; J2270; J2405

== ENCOUNTER 2023-02-06 19:21 | Emergency (ER) | payer MEDICAID, SELFPAY ==
[2023-02-06 19:50] VITALS: BP 169/114; PULSE 93; RESP 18; TEMP 36.8; O2SAT 99; BMI 50.5
[2023-02-06 20:44] LABS: Basophils # 0.1 10^3/uL (0.0-0.1); Basophils % 0.6 %; Eosinophils # 0.1 10^3/uL (0.0-0.8); Eosinophils % 1.3 %; Hematocrit 40.4 % (37.0-47.0); Hemoglobin 13.3 g/dL (11.5-15.3); Lymphocytes # 4.1 10^3/uL (0.8-4.8); Lymphocytes % 46.4 %; Mean Corpuscular HGB Conc 32.9 g/dL (30.0-36.0); Mean Corpuscular Volume 85.1 fl (81-99); Mean Platelet Volume 9.8 fL (7.4-10.4); Monocytes # 0.6 10^3/uL (0.2-0.9); Monocytes % 6.6 %; Neutrophils # 3.94 10^3/uL (1.8-7.7); Neutrophils % 44.9 %; Nucleated Red Blood Cells % 0 %; Platelet Count 298 10^3/cmm (130-400); Red Blood Count 4.75 10^6/uL (4.1-5.3); Red Cell Distribution Width 12.8 % (12.1-15.1); White Blood Count 8.8 10^3/uL (4.0-10.0)
[2023-02-06 20:57] LABS: Alanine Aminotransferase 22 U/L (0-33); Albumin Level 4.1 g/dL (3.5-5.2); Alkaline Phosphatase 92 U/L (35-105); Anion Gap 15.7 (5-19); Aspartate Amino Transferase 16 U/L (0-32); Blood Urea Nitrogen 11 mg/dL (6-20); Carbon Dioxide 24 mmol/L (22-29); Chloride 105 mmol/L (98-107); Globulin 3.4 g/dL (1.3-4.6); Glomerular Filtration Rate 100.4 mL/min (90-130); Glucose 95 mg/dL (65-115); Osmolality Calculated 289 mOsm/kg (285-295); Potassium 4.7 mmol/L (3.5-5.1); Sodium 140 mmol/L (136-145); Total Bilirubin 0.3 mg/dL (0.15-1.2); Total Protein 7.5 g/dL (6.6-8.7)
[2023-02-06 21:11] LABS: HCG, Serum Qual Negative (Negative)
--- NOTE | 2023-02-06 21:55 | ED_ITS ---
HPI - Female Genitourinary General: Chief complaint: Urogenital-Female Stated complaint: Passing Blood Clots Time Seen by Provider: 02/06/23 21:49 Source: patient Mode of arrival: ambulatory Limitations: no limitations History of Present Illness: 27-year-old female who states she is got a history of chronic pelvic pain she is also been having abnormal vaginal bleeding for 3 to 4 months states she seen OB she is currently on the Depo shot. She states that over the last few days she has had heavier bleeding and passing clots she has pains been cramping in nature she denies any vomiting denies any diarrhea denies any worsening proving factors. Associated symptoms: Deny abdominal pain, headache(s) or nausea Review of Systems Const: Denies: fever(s), chills, body aches or change in appetite Eyes: Denies: blurry vision or eye discomfort ENMT: Denies: throat pain or dental pain Card: Denies: chest pain Resp: Denies: dyspnea GI: Denies: abdominal pain, nausea, vomiting or diarrhea : Reports: vaginal bleeding Musc: Denies: neck pain or back pain Skin/Breast: Denies: rash Neuro: Denies: headache(s) Psych: Denies: depression Chip/Lymph: Denies: easy bruising All/Imm: Denies: urticaria PFSH ED PFSH: Medical History Asthma Surgical History H/O bilateral salpingectomy (07/31/22) 07/31/2022: laparoscopic bilateral salpingectomy performed by Dr. Marsh at [facility] H/O right knee surgery Hx of laparoscopy (~10/09/22) Diagnostic Laprascopy performed on 10/09/[address] Marsh at [facility]. No findings for pelvic pain. Family History Mother Bleeding disorder Stroke Thyroid condition Breast cancer, Onset Age: 23 been diagnosed twice Father Hypertension Stroke Grandmother Stroke paternal Heart disease paternal Breast cancer maternal and paternal 50's Denies family history of Colon cancer Ovarian cancer Diabetes Clotting disorder Hyperlipidemia Anesthesia complication Uterine cancer Physical Exam Const: COMMON NORMALS: no acute distress, patient oriented x3 and healthy appearing HENMT: COMMON NORMALS: normocephalic and atraumatic HEAD & SCALP: normocephalic and atraumatic Eye: COMMON NORMALS: Equal, round and reactive pupils present and EOMs intact bilaterally PUPIL: Yes Equal, round and reactive pupils present Neck/C-Spine: COMMON NORMALS: full ROM and supple Chest: COMMONS NORMALS: normal inspection of the chest and normal palpation of entire chest wall Resp: COMMON NORMALS: normal respiratory effort, No retractions, No use of accessory muscles and clear to auscultation bilaterally AUSCULTATION: clear to auscultation bilaterally Cardio: COMMON NORMALS: regular rate, regular rhythm and No murmurs present (Cardio) RATE: regular rate RHYTHM: regular rhythm GI: COMMON NORMALS: Normal to inspection, nondistended, normoactive bowel [place] nds present, Soft to palpation, non-tender and no masses PALPATION: Yes Soft to palpation Extremity: COMMON NORMALS: normal to inspection and full ROM Neuro: COMMON NORMALS: patient oriented x3, moves all extremities and no focal motor deficits Psych: COMMON NORMALS: mental status grossly normal, Normal thought process present and cooperative THOUGHT PROCESS: Normal thought process present Skin: COMMON NORMALS: no rashes or lesions noted and no wounds GENERAL SKIN EXAM: no rashes or lesions noted Course Vital Signs: Vital signs: Vital Signs Temperature 98.3 F 02/06/23 19:50 Pulse Rate 93 02/06/23 19:50 Respiratory Rate 18 02/06/23 19:50 Blood Pressure 169/114 02/06/23 19:50 Pulse Oximetry 99 02/06/23 19:50 Oxygen Delivery Me thod 02/06/23 19:50 MDM - Female Medical Decision Making Patient presents with vaginal bleeding its been going on for months she has been following with OB her hemoglobin here is normal she is in no distress she is not she is well-appearing here she stable for discharge she is to follow-up with her OB and return if worsening. Lab Data 02/06/23 20:20 02/06/23 20:20 Laboratory Results WBC 8.8 10^3/uL (4.0-10.0) 02/06/23 20:20 RBC 4.75 10^6/uL (4.1-5.3) 02/06/23 20:20 Hgb 13.3 g/dL (11.5-15.3) 02/06/23 20:20 Hct 40.4 % (37.0-47.0) 02/06/23 20:20 MCV 85.1 fl (81-99) 02/06/23 20:20 MCH 28.0 pg (28.0-34.0) 02/06/23 20:20 MCHC 32.9 g/dL (30.0-36.0) 02/06/23 20:20 RDW 12.8 % (12.1-15.1) 02/06/23 20:20 Plt Count 298 10^3/cmm (130-400) 02/06/23 20:20 MPV 9.8 fL (7.4-10.4) 02/06/23 20:20 Neut % (Auto) 44.9 % 02/06/23 20:20 Lymph % (Auto) 46.4 % 02/06/23 20:20 [place] % (Auto) 6.6 % 02/06/23 20:20 Eos % (Auto) 1.3 % 02/06/23 20:20 Baso % (Auto) 0.6 % 02/06/23 20:20 Neut # (Auto) 3.94 10^3/uL (1.8-7.7) 02/06/23 20:20 Lymph # (Auto) 4.1 10^3/uL (0.8-4.8) 02/06/23 20:20 [place] # (Auto) 0.6 10^3/uL (0.2-0.9) 02/06/23 20:20 Eos # (Auto) 0.1 10^3/uL (0.0-0.8) 02/06/23 20:20 Baso # (Auto) 0.1 10^3/uL (0.0-0.1) 02/06/23 20:20 Nucleated RBC % (auto) 0 % 02/06/23 20:20 Nucleated RBCs # 0.0 /100WBC 02/06/23 20:20 Sodium 140 mmol/L (136-145) 02/06/23 20:20 Potassium 4.7 mmol/L (3.5-5.1) 02/06/23 20:20 Chloride 105 mmol/L (98-107) 02/06/23 20:20 Carbon Dioxide 24 mmol/L (22-29) 02/06/23 20:20 Anion Gap 15.7 (5-19) 02/06/23 20:20 BUN 11 mg/dL (6-20) 02/06/23 20:20 Creatinine 0.7 mg/dL (0.5-0.9) 02/06/23 20:20 GFR Calculation 100.4 mL/min (90-130) 02/06/23 20:20 Glucose 95 mg/dL (65-115) 02/06/23 20:20 Calculated Osmolality 289 mOsm/kg (285-295) 02/06/23 20:20 Calcium 10.0 mg/dL (8.5-10.5) 02/06/23 20:20 Total Bilirubin 0.3 mg/dL (0.15-1.2) 02/06/23 20:20 AST 16 U/L (0-32) 02/06/23 20:20 ALT 22 U/L (0-33) 02/06/23 20:20 Alkaline Phosphatase 92 U/L (35-105) 02/06/23 20:20 Total Protein 7.5 g/dL (6.6-8.7) 02/06/23 20:20 Albumin 4.1 g/dL (3.5-5.2) 02/06/23 20:20 Globulin 3.4 g/dL (1.3-4.6) 02/06/23 20:20 HCG, Qual Negative (Negative) 02/06/23 20:20 Discharge Plan Discharge Patient Disposition: Home Clinical Impression: Chronic pelvic pain in female, Abnormal vaginal bleeding Condition: Stable Prescriptions: New Naprosyn 500 mg tablet 500 mg PO BID PRN (Reason: pain) Qty: 20 0RF No Action albuterol sulfate [Ventolin HFA] 90 mcg/actuation HFA aerosol inhaler 2 puff inhalation 6XD PRN (Reason: shortness of breath or wheezing) Qty: 8.5 3RF budesonide-formoterol [Symbicort] 160-4.5 mcg/actuation HFA aerosol inhaler 2 puff inhalation Q12H Qty: 10.2 3RF medroxyprogesterone [Depo-Provera] 150 mg/mL syringe 150 mg IM .Q3 months 90 Days Qty: 1 2RF pantoprazole 40 mg tablet,delayed release (DR/EC) 40 mg PO DAILY 30 Days Qty: 30 3RF citalopram 20 mg tablet 20 mg PO DAILY 30 Days Qty: 30 3RF phentermine 37.5 mg tablet 37.5 mg PO DAILY 30 Days Qty: 30 0RF Rx Instructions: must administer 30 minutes before or 1-2 hours after breakfast acetaminophen 325 mg capsule 325 mg PO Q4H PRN (Reason: fever or pain) Qty: 60 0RF ibuprofen 800 mg tablet 800 mg PO TID PRN (Reason: pain) Qty: 60 0RF Discharge Orders: Discharge ED (Routine); Ordered 02/06/23 Ordered By: Nav Koroma Referrals: Saray Duarte NP [Primary Care Provider] - Discharge Diet: Advance as tolerated Discharge Activity: Resume usual activity Patient Instructions: Abnormal (Dysfunctional) Uterine Bleeding (ED) Coding Level of Care Code ED Home 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
[2023-02-06 22:10] VITALS: BP 132/80; PULSE 85; RESP 18; O2SAT 100
[2023-02-06] MEDS: ketorolac 30 mg/mL INJ IM (22:10)
[2023-02-06 22:22] VITALS: BP 132/80; PULSE 85; RESP 18; O2SAT 100
== END 2023-02-06 22:16 | disposition home or self-care (01) ==
PROVIDERS: Emergency Provider Emergency Medicine; PCP Nurse Practitioner Family
DX: N93.9 Abnormal uterine and vaginal bleeding, unspecified (principal); G89.29 Other chronic pain; R10.2 Pelvic and perineal pain
CPT/HCPCS: 80053; 84703; 85025; 96372; 99284; J1885

== ENCOUNTER 2023-03-08 00:54 | Emergency (ER) | payer MEDICAID, SELFPAY ==
[2023-03-08 00:56] VITALS: BP 156/94; PULSE 91; RESP 21; TEMP 36.8; O2SAT 98; BMI 38.2
--- NOTE | 2023-03-08 01:01 | ECG_ITS ---
[facility] Test Date: 2023-03-08 Pat Name: Marta Moser Department: Room: Gender: Female Grid Maker: : 1995 Requested By: Nav Koroma Order Number: [id number] Donnie MD: William Chavarria M.D. Measurements Intervals [place] Rate: 86 P: 42 LA: 156 QRS: 7 QRSD: 106 T: 25 QT: 346 QTc: 416 Interpretive Statements SINUS RHYTHM MODERATE VOLTAGE CRITERIA FOR LVH, CONSIDER NORMAL VARIANT [MEETS CRITERIA IN ONE OF: R(aVL), S(V1), R(V5), R(V5/V6)+S(V1)] Compared to ECG 08/06/2021 18:58:56 No significant changes Electronically Signed On 03-08-2023 16:37:25 CDT by William Chavarria M.D. [id number] f
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
[2023-03-08] MEDS: sodium chloride 0.9% 1,000 ML 999 ML IV (01:16)
[2023-03-08 01:18] LABS: Glucose Point of Care 102 mg/dL (70-110)
[2023-03-08 01:18] LABS: Basophils % 0.5 %; Eosinophils # 0.1 10^3/uL (0.0-0.8); Eosinophils % 0.7 %; Hematocrit 39.1 % (37.0-47.0); Hemoglobin 13.4 g/dL (11.5-15.3); Lymphocytes # 2.5 10^3/uL (0.8-4.8); Lymphocytes % 28.7 %; Mean Corpuscular HGB Conc 34.3 g/dL (30.0-36.0); Mean Corpuscular Hemoglobin 28.2 pg (28.0-34.0); Mean Corpuscular Volume 82.3 fl (81-99); Mean Platelet Volume 10.2 fL (7.4-10.4); Monocytes # 0.4 10^3/uL (0.2-0.9); Monocytes % 4.6 %; Neutrophils # 5.58 10^3/uL (1.8-7.7); Neutrophils % 65.1 %; Nucleated Red Blood Cells % 0 %; Platelet Count 294 10^3/cmm (130-400); Red Blood Count 4.75 10^6/uL (4.1-5.3); Red Cell Distribution Width 12.6 % (12.1-15.1); White Blood Count 8.6 10^3/uL (4.0-10.0)
[2023-03-08 01:20] LABS: HCG Qualitative Urine. Negative (Negative); HCG, Serum Qual Negative (Negative)
[2023-03-08 01:30] LABS: Alanine Aminotransferase 42 U/L (0-33); Albumin Level 4.5 g/dL (3.5-5.2); Alcohol Level 120 mg/dL (0-10); Alkaline Phosphatase 87 U/L (35-105); Anion Gap 21.7 (5-19); Aspartate Amino Transferase 26 U/L (0-32); Blood Urea Nitrogen 8 mg/dL (6-20); Calcium 9.4 mg/dL (8.5-10.5); Carbon Dioxide 18 mmol/L (22-29); Chloride 107 mmol/L (98-107); Globulin 3.3 g/dL (1.3-4.6); Glomerular Filtration Rate 75.1 mL/min (90-130); Glucose 104 mg/dL (65-115); Osmolality Calculated 295 mOsm/kg (285-295); Potassium 3.7 mmol/L (3.5-5.1); Sodium 143 mmol/L (136-145); Total Bilirubin 0.2 mg/dL (0.15-1.2); Total Protein 7.8 g/dL (6.6-8.7)
[2023-03-08 01:31] LABS: Lactate (Lactic Acid level) 2.1 mmol/L (0.5-2.2)
[2023-03-08] MEDS: iohexol 350 mg/mL 500 mL Btl (per mL) IV (01:49)
[2023-03-08 02:01] VITALS: BP 140/84; PULSE 80; RESP 18; O2SAT 100
[2023-03-08] MEDS: ketorolac 30 mg/mL INJ IVP (02:56)
[2023-03-08 03:45] VITALS: BP 117/69; PULSE 79; RESP 16; O2SAT 98
== END 2023-03-08 03:50 | disposition home or self-care (01) ==
PROVIDERS: Emergency Provider Emergency Medicine; PCP Nurse Practitioner Family
DX: F10.129 Alcohol abuse with intoxication, unspecified (principal); Y90.6 Blood alcohol level of 120-199 mg/100 ml; Y04.2XXA Assault by strike against or bumped into by another person, initial encounter
CPT/HCPCS: 36416; 70450; 71045; 71260; 72125; 73562; 74177; 80053; 80307; 81025; 82962; 83605; 84703; 85025; 93005; 96361; 96374; 99285; J1885; J7030; Q9967

== ENCOUNTER 2023-07-06 17:34 | Emergency (ER) | payer MEDICAID, SELFPAY ==
[2023-07-06 17:41] VITALS: BP 137/92; PULSE 87; RESP 16; TEMP 36.9; O2SAT 99; BMI 46.7
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
[2023-07-06] MEDS: ketorolac 30 mg/mL INJ 60 MG IM (17:58)
[2023-07-06 18:32] LABS: HCG Qualitative Urine. Negative (Negative)
[2023-07-06 18:33] LABS: Bilirubin Urine Neg (Negative); Blood Urine 3+ (Negative); Glucose Urine UA Norm (Normal); Ketones Urine Negative (Negative); Leukocyte Esterase Urine 2+ (Negative); Nitrate Urine Negative (Negative); Protein Urine Trace (Negative); Urine Appearance Hazy (CLEAR); Urine Color Yellow (Yellow); Urobilinogen Urine Neg (Negative); pH Urine 5 (5-7)
[2023-07-06 18:34] LABS: Amorphous Sediment Urine 2+ /hpf; Bacteria Urine 2+ /hpf; Mucus Urine 2+ /hpf
[2023-07-06 18:35] LABS: Add Urine Culture? Yes
--- NOTE | 2023-07-06 18:50 | CTR_ITS ---
PROCEDURE INFORMATION: Exam: CT Pelvis Without Contrast; Skeletal Exam date and time: 07/06/2023 6:57 PM Age: 28 years old Clinical indication: Pelvic pain; Prior surgery; Surgery date: 6+ months; Surgery type: Bilateral salpingectomy; Patient HX: C/O coccygeal pain; Additional info: Sacrum and coccygeal pain TECHNIQUE: Imaging protocol: Computed tomography of the pelvis without contrast. Exam focused on the skeleton. Radiation optimization: All CT scans at this facility use at least one of these dose optimization techniques: automated exposure control; mA and/or kV adjustment per patient size (includes targeted exams where dose is matched to clinical indication); or iterative reconstruction. REPORTING DATA: Count of CT and Cardiac NM exams in prior 12 months: This patient has received 3 known CTs and 0 known cardiac nuclear medicine studies in the 12 months prior to the current study. COMPARISON: CT chest abdpel w/*[id number] 03/08/2023 1:45 AM RADIATION DOSE METRICS: Total DLP (mGy-cm): 1421.48 FINDINGS: Bones/joints: Inferior most sacral vertebrae inferior endplate cortical deformity, best seen series 7 image 78, may reflect posttraumatic changes, not seen with certainty on prior exam, age indeterminate, MRI could potentially further characterize this. Soft tissues: Unremarkable. CT/CT bony pelvis [id number] IMPRESSION: Inferior most sacral vertebrae inferior endplate cortical deformity, best seen series 7 image 78, may reflect posttraumatic changes, not seen with certainty on prior exam, age indeterminate, MRI could potentially further characterize this.
[2023-07-06 21:27] VITALS: RESP 16
[2023-07-06] MEDS: oxyCODONE-APAP 5-325 mg Tablet 1 TAB PO (21:27)
[2023-07-06] MEDS: sulfamethoxazole-trimeth DS 160-800 mg Tablet 1 TAB PO (21:27)
[2023-07-06 21:34] VITALS: BP 135/84; PULSE 75; O2SAT 100
--- NOTE | 2023-07-07 12:51 | DCPLANNER ---
retail general manager had message to refer patient to pain management. retail general manager is unable to refer to pain management, this has to come from a primary care physician. retail general manager called patient and explained this to patient. Patient stated that she understood, when asked if she had a primary care physician patient stated not at this time. retail general manager offered to help patient get established with a provider. patient stated that she would like to be seen at [facility]. retail general manager faxed patients information to [facility], where it will be reviewed, and clinic will call patient with appointment information.
== END 2023-07-06 21:36 | disposition home or self-care (01) ==
PROVIDERS: Family Medicine; Emergency Provider Emergency Medicine; PCP Nurse Practitioner Family
DX: S32.10XA Unspecified fracture of sacrum, initial encounter for closed fracture (principal); N39.0 Urinary tract infection, site not specified; B37.89 Other sites of candidiasis; Y04.2XXA Assault by strike against or bumped into by another person, initial encounter
CPT/HCPCS: 72192; 81001; 81025; 87086; 96372; 99285; J1885

== ENCOUNTER 2023-08-22 13:20 | Outpatient (CLI) | payer MEDICAID, SELFPAY ==
--- NOTE | 2023-08-22 13:28 | MR_ITS ---
WS: [id number] MRI OF THE PELVIS WITHOUT GADOLINIUM ENHANCEMENT. INDICATION: Fell 7 months ago. TECHNIQUE: Coronal T1, coronal STIR, axial T1, axial T2, sagittal T2 fat-sat FINDINGS: Comparison CT 07/06/2023 Normal bone marrow signal in the pelvis and sacrum. Normal bone marrow signal in both hips. Lower lum bar spine is normal in appearance. Slight irregularity inferior endplate S5 segment unchanged since the prior CT. Mild edema in this loc ation. Normal visualized coccyx. Normal visualized soft tissues. IMPRESSION: 1. Slight irregularity inferior plate S5 segment unchanged since the prior CT. Mild associated edema in this location likely due to prior healing fracture given clinical history. 2. No other visualized fractures. 3. Bony pelvis and sacrum are otherwise normal in appearance. 4. Bilateral hips are normal in appearance.
== END 2023-08-22 13:21 | disposition home or self-care (01) ==
PROVIDERS: PCP Nurse Practitioner Family; Visit Provider Family Medicine
DX: M53.3 Sacrococcygeal disorders, not elsewhere classified (principal); Z91.81 History of falling; R60.0 Localized edema
CPT/HCPCS: 72195

== ENCOUNTER 2023-09-26 18:15 | Emergency (ER) | payer OTHER, MEDICAID, SELFPAY ==
[2023-09-26 18:25] VITALS: BP 119/72; PULSE 81; RESP 18; TEMP 36.8; O2SAT 100; BMI 48.7
--- NOTE | 2023-09-26 18:43 | XRR_ITS ---
PROCEDURE INFORMATION: Exam: XR Left Foot Exam date and time: 09/26/2023 6:58 PM Age: 28 years old Clinical indication: Pain; Foot; Left; Additional info: L foot pain TECHNIQUE: Imaging protocol: Radiologic exam of the left foot. Views: 3 or more views. COMPARISON: No relevant prior studies available. FINDINGS: Bones/joints: Normal. Soft tissues: Normal. XR/XR foot LT min 3V* [id number] IMPRESSION: No acute findings.
--- NOTE | 2023-09-26 18:43 | USR_ITS ---
PROCEDURE INFORMATION: Exam: US Duplex Left Lower Extremity Veins, Limited Exam date and time: 09/26/2023 7:38 PM Age: 28 years old Clinical indication: Pain; Leg, lower; Left; Additional info: Left leg pain and swelling TECHNIQUE: Imaging protocol: Real-time duplex ultrasound of the left extremity with 2-D gibbs scale, color Doppler flow and spectral waveform analysis including responses to compression and other maneuvers (when performed) with image documentation. Limited exam focused on the left lower extremity veins. COMPARISON: US transvaginal [id number] 09/20/2022 9:46 AM FINDINGS: Left deep veins: Unremarkable. The common femoral, femoral, proximal profunda femoral and popliteal veins are patent without thrombus. Normal Doppler waveforms. Normal compressibility and/or augmentation response. Superficial veins: Unremarkable. Saphenofemoral junction is patent without thrombus. Soft tissues: Unremarkable. US/[place] [id number] IMPRESSION: No evidence of deep vein thrombosis.
--- NOTE | 2023-09-26 19:07 | W.ED.EXTPRO ---
HPI - Extremity Problem General: Chief complaint: Extremity Injury, Lower Stated complaint: left foot injury Time Seen by Provider: 09/26/23 18:37 History of Present Illness: 28-year-old female presenting with left foot pain radiating up her leg. She says that she has been walking quite a bit, up to 10 miles a day. Pain began in her heel, spread to her foot, and then up her lateral leg into her thigh. She denies back pain. She says the foot is swollen, but the right foot is swollen to some degree as well. No long car trips recently. No recent surgeries. No prior history of DVT. No fever. Associated symptoms: Deny chest pain, fever(s) or rash Review of Systems Const: Denies: fever(s), chills or body aches Eyes: Reports: change in vision Card: Denies: chest pain or palpitations Resp: Denies: dyspnea, productive cough, non-productive cough or wheezing GI: Denies: abdominal pain, nausea, vomiting, diarrhea or hematochezia : Denies: difficulty voiding Skin/Breast: Denies: rash Neuro: Denies: headache(s), weakness in extremities, dizziness or confusion [facility] ED PFSH: Medical History Asthma Surgical History H/O bilateral salpingectomy (07/31/22) 07/31/2022: laparoscopic bilateral salpingectomy performed by Dr. Marsh at [facility] H/O right knee surgery Hx of laparoscopy (~10/09/22) Diagnostic Laprascopy performed on 10/09/[address] Marsh at [facility]. No findings for pelvic pain. Family History Mother Bleeding disorder Stroke Thyroid disease Breast cancer, Onset Age: 23 been diagnosed twice Father Hypertension Stroke Grandmother Stroke paternal Heart disease paternal Breast cancer maternal and paternal 50's Denies family history of Colon cancer Ovarian cancer Diabetes Clotting disorder Hyperlipidemia Anesthesia complication Uterine cancer Social History Substance/Drug Use: never Physical Exam Const: COMMON NORMALS: no acute distress GENERAL APPEARANCE: cooperative; not ill appearing and not frail appearing HENMT: COMMON NORMALS: normocephalic, atraumatic and Normal external nose present HEAD & SCALP: normocephalic and atraumatic FACE & SINUS: normal facial exam and face symmetric NOSE: Normal external nose present Eye: COMMON NORMALS: Equal, round and reactive pupils present and EOMs intact bilaterally PUPIL: Yes Equal, round and reactive pupils present Neck/C-Spine: GENERAL: Yes trachea midline Chest: CHEST: Yes Symmetrical chest wall rise Resp: COMMON NORMALS: normal respiratory effort, No retractions, No use of accessory muscles and clear to auscultation bilaterally AUSCULTATION: clear to auscultation bilaterally Cardio: COMMON NORMALS: regular rate and regular rhythm RATE: regular rate RHYTHM: regular rhythm GI: COMMON NORMALS: Normal to inspection, nondistended, normoactive bowel sounds present Extremity: NARRATIVE EXTREMITY EXAM: Equal 1+ edema bilaterally. There is slight increased redness to the lateral leg. There is minimal to no calf tenderness. No popliteal fossa tenderness. No deformity of the foot. There is significant tenderness to the left foot. Tenderness is diffuse. No focal bony tenderness. Neuro: CYNTHIA COMA SCALE: document GCS findings [place] coma scale eye opening: Spontaneous Cynthia coma scale verbal response: Orientated [place] coma scale motor response: Obey commands [place] coma scale total score: 15 SENSORY EXAM: Yes extremities (intact) Psych: COMMON NORMALS: speech normal SPEECH: Yes normal speech Skin: COMMON NORMALS: no rashes or lesions noted GENERAL SKIN EXAM: no rashes or lesions noted Course Vital Signs: Vital signs: Vital Signs Temperature 98.3 F 09/26/23 18:25 Pulse Rate 81 09/26/23 18:25 Respiratory Rate 20 H 09/26/23 19:31 Blood Pressure 119/72 09/26/23 18:25 Pulse Oximetry 100 09/26/23 18:25 Oxygen Delivery Me thod Room Air 09/26/23 18:25 MDM - Extremity (Nontraumatic) Medical Decision Making Pain to the left foot, radiating up the leg without clear injury. No evidence of infection by fever, etc., although there is slight redness to the lateral left leg. X-ray negative. Ultrasound negative. Conservative management. Outpatient follow-up. Return for worsening symptoms. Lab Data Radiology Impressions Foot X-Ray 09/26/23 18:43 IMPRESSION: No acute findings. Venous Duplex 09/26/23 18:43 IMPRESSION: No evidence of deep vein thrombosis. All radiology interpretation(s) finalized by discharge Discharge Plan Discharge Patient Disposition: Home Clinical Impression: Acute pain of left foot Condition: Stable Prescriptions: New ketorolac 10 mg tablet 10 mg PO TID PRN (Reason: pain) Qty: 10 0RF No Action albuterol sulfate [Ventolin HFA] 90 mcg/actuation HFA aerosol inhaler 2 puff inhalation 6XD PRN (Reason: shortness of breath or wheezing) Qty: 8.5 3RF budesonide-formoterol [Symbicort] 160-4.5 mcg/actuation HFA aerosol inhaler 2 puff inhalation Q12H Qty: 10.2 3RF medroxyprogesterone [Depo-Provera] 150 mg/mL syringe 150 mg IM .Q3 months 90 Days Qty: 1 2RF pantoprazole 40 mg tablet,delayed release (DR/EC) 40 mg PO DAILY 30 Days Qty: 30 3RF cyclobenzaprine 10 mg tablet 10 mg PO TID PRN (Reason: muscle spasm) Qty: 90 0RF venlafaxine [Effexor XR] 75 mg capsule,extended release 24hr 75 mg PO DAILY 30 Days Qty: 30 3RF acetaminophen 325 mg capsule 325 mg PO Q4H PRN (Reason: fever or pain) Qty: 60 0RF ibuprofen 800 mg tablet 800 mg PO TID PRN (Reason: pain) Qty: 60 0RF Naprosyn 500 mg tablet 500 mg PO BID PRN (Reason: pain) Qty: 20 0RF Percocet 7.5-325 mg tablet 1 tab PO Q6H PRN (Reason: pain) Qty: 10 0RF Medrol (Neftali) 4 mg tablets,dose pack See Rx Instructions .ROUTE .COMPLEX Qty: 21 0RF Rx Instructions: orally per package directions Diflucan 150 mg tablet 150 mg PO Q3D Qty: 2 0RF Discharge Orders: Discharge ED (Routine); Ordered 09/26/23 Ordered By: Demarcus Morin Referrals: Rajat Rodriguez MD [Primary Care Provider] - 1-3 days Patient Instructions: Opioid Safety, Pain Management Activity Restrictions/Additional Instructions: Elevate your foot is much as possible for swelling. Ice the foot for swelling as well. Use crutches for weightbearing for the next couple of days, then increase your weightbearing as tolerated. Medication as directed. See your doctor next week. Monitor your temperature. Return for fever greater than 100 that continues. Coding Level of Care Code ED Toe Stapler for Aracely De Leon
[2023-09-26 19:31] VITALS: RESP 20
[2023-09-26] MEDS: oxyCODONE-APAP 5-325 mg Tablet 2 TAB PO (19:31)
== END 2023-09-26 21:52 | disposition home or self-care (01) ==
PROVIDERS: Emergency Provider Emergency Medicine; PCP Family Medicine
DX: M79.672 Pain in left foot (principal)
CPT/HCPCS: 73630; 93971; 99284

== ENCOUNTER 2023-11-01 14:59 | Emergency (ER) | payer MEDICAID, SELFPAY ==
[2023-11-01 15:01] VITALS: BP 137/84; PULSE 96; RESP 18; TEMP 38.2; O2SAT 98; BMI 49.9
--- NOTE | 2023-11-01 15:10 | ECG_ITS ---
[facility] Test Date: 2023-11-01 Pat Name: Marta Ehsan Department: Room: Gender: Female Director Of Rehabilitation And Wellness: : 1995 Requested By: Julien Aceves Order Number: [id number] Donnie MD: Emanuel Lagos M.D. Measurements Intervals [place] Rate: 97 P: 53 RI: 145 QRS: 50 QRSD: 98 T: 38 QT: 330 QTc: 420 Interpretive Statements SINUS RHYTHM Compared to ECG 03/08/2023 00:59:59 No significant changes Electronically Signed On 11-02-2023 9:59:53 CUSTOMER RELATIONS ADVISOR by Emanuel Lagos M.D. [email or web address]
[2023-11-01 16:40] VITALS: BP 161/88; PULSE 86; O2SAT 96
--- NOTE | 2023-11-01 16:46 | XRR_ITS ---
PROCEDURE INFORMATION: Exam: XR Chest Exam date and time: 11/01/2023 5:13 PM Age: 28 years old Clinical indication: Pain; Cough; Chest pressure; Additional info: Cp, cough TECHNIQUE: Imaging protocol: Radiologic exam of the chest. Views: 1 view. COMPARISON: CT chest reginapel w/*[id number] 03/08/2023 1:45 AM FINDINGS: Lungs: Unremarkable. No consolidation. Pleural spaces: Unremarkable. No pleural effusion. No pneumothorax. Heart/Mediastinum: Unremarkable. No cardiomegaly. Bones/joints: Unremarkable. XR/XR chest 1V portable [id number] IMPRESSION: No acute findings.
--- NOTE | 2023-11-01 16:49 | W.ED.NAVMDI ---
HPI - Nausea/Vomiting/Diarrhea General: Chief complaint: Nausea/Vomiting/Diarrhea Stated complaint: chest pains, sob, N/V/D, cough Time Seen by Provider: 11/01/23 16:30 Source: patient Mode of arrival: ambulatory Limitations: no limitations History of Present Illness: This patient presents to the emergency department because she is had several days of vomiting and diarrhea abdominal discomfort lightheadedness when changing positions as well as chest pains with coughing. She states she has not produced any sputum has had body aches and uncertain whether she had fever she has no thermometer. She states the remainder of the occupants in her household have been sick with similar symptoms but they are getting better. She states she is currently menstruating. She states that she has been and will unable to take her Effexor and hydroxyzine that she takes for her anxiety disorder. He states she had no blood in her emesis or blood in her stools. MD elicited complaint: nausea, vomiting and diarrhea Associated nausea: Yes Associated symtoms: Reports malaise and nausea; Denies change in vision, dysuria, headache(s), palpitations or syncope Review of Systems Const: Reports: chills, body aches and malaise; Denies: fever(s) Eyes: Denies: change in vision ENMT: Reports: throat pain; Denies: nasal discharge, nasal congestion or nasal obstruction Card: Reports: lightheadedness; Denies: palpitations, irregular heart rhythm or syncope Resp: Reports: non-productive cough; Denies: dyspnea or productive cough GI: Reports: nausea, vomiting and diarrhea; Denies: hematochezia or melena : Denies: flank pain, difficulty voiding, dysuria or urinary frequency Musc: Denies: neck pain, back pain, extremity pain or extremity swelling Skin/Breast: Denies: rash Neuro: Denies: headache(s) Psych: Denies: mood swings or panic attacks [facility] ED PFSH: Medical History Asthma Surgical History H/O right knee surgery H/O bilateral salpingectomy (07/31/22) 07/31/2022: laparoscopic bilateral salpingectomy performed by Dr. Marsh at [facility] Hx of laparoscopy (~10/09/22) Diagnostic Laprascopy performed on 10/09/[address] Marsh at [facility]. No findings for pelvic pain. Family History Mother Bleeding disorder Stroke Thyroid disease Breast cancer, Onset Age: 23 been diagnosed twice Father Hypertension Stroke Grandmother Stroke paternal Heart disease paternal Breast cancer maternal and paternal 50's Denies family history of Colon cancer Ovarian cancer Diabetes Clotting disorder Hyperlipidemia Anesthesia complication Uterine cancer Social History Substance/Drug Use: never Physical Exam Narrative: EXAM NARRATIVE: She is alert appears to be somewhat ill but in no acute distress and able to complete conversation in a fluent goal-directed fashion without dyspnea Const: COMMON NORMALS: no acute distress and patient oriented x3 GENERAL APPEARANCE: cooperative NUTRITIONAL APPEARANCE: overweight HENMT: COMMON NORMALS: normocephalic, TM's normal bilaterally, Normal external nose present, Normal nasal mucous membranes and turbinates present, moist oral mucous membranes and oropharynx normal HEAD & SCALP: normocephalic FACE & SINUS: normal facial exam NOSE: Normal external nose present and Normal nasal mucous membranes and turbinates present TYMPANIC MEMBRANE: TM's normal bilaterally Eye: COMMON NORMALS: Equal, round and reactive pupils present, EOMs intact bilaterally and conjunctivae normal CONJUNCTIVA: Yes conjunctivae normal PUPIL: Yes Equal, round and reactive pupils present Neck/C-Spine: COMMON NORMALS: full ROM, no lymphadenopathy, supple and no meningeal signs Chest: COMMONS NORMALS: normal inspection of the chest Resp: COMMON NORMALS: normal respiratory effort, No retractions and No use of accessory muscles EFFORT & INSPECTION: Yes able to speak in complete sentences Cardio: COMMON NORMALS: regular rate, regular rhythm, No murmurs present (Cardio) and Peripheral pulses 2+ throughout RATE: regular rate RHYTHM: regular rhythm PERIPHERAL PULSES: Peripheral pulses 2+ throughout GI: COMMON NORMALS: Soft to palpation INSPECTION: Yes central obesity PALPATION: Yes Soft to palpation and Yes Tenderness to palpation present (GI) (Mildly generalized tenderness no rebound, no guarding,) : COMMON NORMALS: Yes no CVA tenderness BLADDER/KIDNEY EXAM: Yes no CVA tenderness Back/Pelvis: COMMON NORMALS: no CVA tenderness, thoracic and lumbar spine normal to inspection, no thoracic nor lumbar tenderness, thoraco-lumbar ROM normal and straight leg raise negative bilaterally Extremity: COMMON NORMALS: normal to inspection, full ROM, capillary refill normal, no calf tenderness and no pedal edema Neuro: COMMON NORMALS: patient oriented x3, moves all extremities, no focal motor deficits and no sensory deficits noted MENINGEAL SIGNS: Yes no meningeal signs CRANIAL NERVES: Yes CN normal except as noted Psych: COMMON NORMALS: mental status grossly normal Skin: COMMON NORMALS: no rashes or lesions noted and turgor normal GENERAL SKIN EXAM: no rashes or lesions noted and turgor normal Course Reevaluation(s): Reevaluation #1: Patient was informed of her diagnosis. Continues to receive IV fluids. Plan will be to continue to rehydrate her and plan for discharge home. Time: 18:43 Reevaluation #2: She has received 2 L of fluids vital signs are reassuring. No evidence of hypoxia, tachycardia, tachypnea etc. Discussed current findings and plan of care. She has a concomitant lower urinary tract infection. I do not feel that this is a significant contributor to her current illness but certainly needs to be treated. Stable for outpatient home management. Time: 19:56 Vital Signs: Vital signs: Vital Signs Temperature 100.8 F H 11/01/23 15:01 Pulse Rate 84 11/01/23 19:14 Respiratory Rate 24 H 11/01/23 19:14 Blood Pressure 138/61 11/01/23 19:14 Pulse Oximetry 98 11/01/23 19:14 Oxygen Delivery Me thod Room Air 11/01/23 17:00 MDM - Nausea/Vomiting/Diarrhea Medical Decision Making This patient presents to the emergency department with systemic symptoms of body aches malaise nonproductive cough nausea vomiting and other symptoms suggestive of likely systemic or viral illness. Remainder of the family at home was sick last week but have improved and now she has been sick for the last several days. Her clinical examination revealed no focal findings suggestive of serious illness. A evaluation of her symptoms was undertaken to include urinalysis electrolytes and blood count in addition to viral studies. She was hydrated while awaiting study results. Ultimately she was noted to be COVID-positive. She also had a concomitant findings on her urinalysis which suggested lower urinary tract infection. I do not believe that the patient has sepsis or other worrisome bacterial infection at this time. She will be treated with antibiotics for her urinary tract infection and encouraged to continue to hydrate, isolate and return to the emergency department for any persistent or worsening symptoms. Lab Data I reviewed the patient's lab results. 11/01/23 16:58 11/01/23 16:58 Radiology Impressions Chest X-Ray 11/01/23 16:46 IMPRESSION: No acute findings. Laboratory Results WBC 5.86 10^3/uL (3.29-11.43) 11/01/23 16:58 RBC 4.71 10^6/uL (3.85-5.65) 11/01/23 16:58 Hgb 13.20 g/dL (11.27-16.99) 11/01/23 16:58 Hct 39.7 % (36-47) 11/01/23 16:58 MCV 84.3 fl (85-98) L 11/01/23 16:58 MCH 28.0 pg (27-33) 11/01/23 16:58 MCHC 33.2 g/dL (30-55) 11/01/23 16:58 RDW 12.7 % (12.1-15.1) 11/01/23 16:58 Plt Count 201 10^3/cmm (157-399) 11/01/23 16:58 MPV 9.3 fL (7.4-10.4) 11/01/23 16:58 Neut % (Auto) 75.5 % 11/01/23 16:58 Lymph % (Auto) 13.5 % 11/01/23 16:58 [place] % (Auto) 9.0 % 11/01/23 16:58 Eos % (Auto) 1.5 % 11/01/23 16:58 Baso % (Auto) 0.3 % 11/01/23 16:58 Neut # (Auto) 4.42 10^3/uL (1.8-7.7) 11/01/23 16:58 Lymph # (Auto) 0.8 10^3/uL (0.8-4.8) 11/01/23 16:58 [place] # (Auto) 0.5 10^3/uL (0.2-0.9) 11/01/23 16:58 Eos # (Auto) 0.1 10^3/uL (0.0-0.8) 11/01/23 16:58 Baso # (Auto) 0.0 10^3/uL (0.0-0.1) 11/01/23 16:58 Nucleated RBC % (auto) 0 % 11/01/23 16:58 Nucleated RBCs # 0.0 /100WBC 11/01/23 16:58 Sodium 137 mmol/L (136-145) 11/01/23 16:58 Potassium 3.9 mmol/L (3.5-5.1) 11/01/23 16:58 Chloride 103 mmol/L (98-107) 11/01/23 16:58 Carbon Dioxide 25 mmol/L (22-29) 11/01/23 16:58 Anion Gap 12.9 (5-19) 11/01/23 16:58 BUN 8 mg/dL (6-20) 11/01/23 16:58 Creatinine 0.8 mg/dL (0.5-0.9) 11/01/23 16:58 GFR Calculation 85.4 mL/min (90-130) L 11/01/23 16:58 Glucose 87 mg/dL (65-115) 11/01/23 16:58 Calculated Osmolality 282 mOsm/kg (285-295) L 11/01/23 16:58 Calcium 9.3 mg/dL (8.5-10.5) 11/01/23 16:58 Total Bilirubin 0.2 mg/dL (0.15-1.2) 11/01/23 16:58 AST 13 U/L (0-32) 11/01/23 16:58 ALT 19 U/L (0-33) 11/01/23 16:58 Alkaline Phosphatase 98 U/L (35-105) 11/01/23 16:58 Total Protein 7.4 g/dL (6.6-8.7) 11/01/23 16:58 Albumin 4.2 g/dL (3.5-5.2) 11/01/23 16:58 Globulin 3.2 g/dL (1.3-4.6) 11/01/23 16:58 HCG, Qual Negative (Negative) 11/01/23 19:12 Urine Color Anay (Yellow) 11/01/23 19:12 Urine Appearance Hazy (CLEAR) A 11/01/23 19:12 Urine pH 5 (5-7) 11/01/23 19:12 Ur Specific [place] 1.020 (1.005-1.030) 11/01/23 19:12 Urine Protein 1+ (Negative) H 11/01/23 19:12 Urine Glucose (UA) Norm (Normal) 11/01/23 19:12 Urine Ketones 1+ (Negative) H 11/01/23 19:12 Urine Blood 3+ (Negative) H 11/01/23 19:12 Urine Nitrate Negative (Negative) 11/01/23 19:12 Urine Bilirubin 1+ (Negative) H 11/01/23 19:12 Urine Urobilinogen Norm mg/dL (Negative) 11/01/23 19:12 Ur Leukocyte Esterase 1+ (Negative) H 11/01/23 19:12 Urine RBC 5-10 /hpf (0-2) H 11/01/23 19:12 Urine WBC 25-40 /hpf (0-5) H 11/01/23 19:12 Ur Squamous Epith Cells 5-10 /hpf (0-5) H 11/01/23 19:12 Amorphous Sediment 2+ /hpf 11/01/23 19:12 Urine Bacteria 1+ /hpf (NONE) H 11/01/23 19:12 Urine Mucus 3+ /hpf 11/01/23 19:12 Influenza Type A Ag negative (Negative) 11/01/23 17:32 Influenza Type B Ag negative (Negative) 11/01/23 17:32 SARS-CoV-2 Ag (Rapid) Positive (Negative) H 11/01/23 17:32 Imaging Data CXR: Radiologist's impression: No acute disease noted on chest x-ray All radiology interpretation(s) finalized by discharge EKG Data EKG 1: I personally reviewed and interpreted this EKG as follows: Interpretation: Contemporaneous review of resting EKG reveals a ventricular rate of 97 bpm. Normal ND interval, QRS duration, corrected QT interval. Normal axis.. No acute ST-T wave changes noted. Discharge Plan Discharge Patient Disposition: Home Clinical Impression: COVID-19 UTI (urinary tract infection) Qualifiers: Urinary tract infection type: site unspecified Hematuria presence: with hematuria Qualified Code(s): N39.0 - Urinary tract infection, site not specified Condition: Stable Prescriptions: New nitrofurantoin macrocrystal [Macrodantin] 100 mg capsule 100 mg PO BID 7 Days Qty: 14 0RF Rx Instructions: must administer with a meal/food ondansetron 4 mg tablet,disintegrating 4 mg PO Q8H PRN (Reason: nausea and vomiting) 5 Days Qty: 20 0RF No Action albuterol sulfate [Ventolin HFA] 90 mcg/actuation HFA aerosol inhaler 2 puff inhalation 6XD PRN (Reason: shortness of breath or wheezing) Qty: 8.5 3RF budesonide-formoterol [Symbicort] 160-4.5 mcg/actuation HFA aerosol inhaler 2 puff inhalation Q12H Qty: 10.2 3RF medroxyprogesterone [Depo-Provera] 150 mg/mL syringe 150 mg IM .Q3 months 90 Days Qty: 1 2RF pantoprazole 40 mg tablet,delayed release (DR/EC) 40 mg PO DAILY 30 Days Qty: 30 3RF cyclobenzaprine 10 mg tablet 10 mg PO TID PRN (Reason: muscle spasm) Qty: 90 0RF venlafaxine [Effexor XR] 75 mg capsule,extended release 24hr 75 mg PO DAILY 30 Days Qty: 30 3RF acetaminophen 325 mg capsule 325 mg PO Q4H PRN (Reason: fever or pain) Qty: 60 0RF ibuprofen 800 mg tablet 800 mg PO TID PRN (Reason: pain) Qty: 60 0RF Naprosyn 500 mg tablet 500 mg PO BID PRN (Reason: pain) Qty: 20 0RF Percocet 7.5-325 mg tablet 1 tab PO Q6H PRN (Reason: pain) Qty: 10 0RF Medrol (Neftali) 4 mg tablets,dose pack See Rx Instructions .ROUTE .COMPLEX Qty: 21 0RF Rx Instructions: orally per package directions Diflucan 150 mg tablet 150 mg PO Q3D Qty: 2 0RF ketorolac 10 mg tablet 10 mg PO TID PRN (Reason: pain) Qty: 10 0RF Discharge Orders: Discharge ED (Routine); Ordered 11/01/23 Ordered By: David Marshall Referrals: Rajat Rodriguez MD [Primary Care Provider] - Discharge Diet: Advance as tolerated Discharge Activity: Increase activity as tolerated Patient Instructions: How to Recover from COVID-19 at Home (ED), Opioid Safety, Pain Management Activity Restrictions/Additional Instructions: Make sure you drink at least 2 quarts of fluid preferably drinks like sports drinks or apple juice [id number] with water etc. Avoid milk products until you are feeling better. Provided a prescription for antibiotics for your lower urinary tract infection as well as an antinausea medicine. Make sure you isolate until you are feeling better and then you should wear a mask until you are symptom-free. If it anytime you have worsening symptoms or any other concerns you are welcome to return to the emergency department. Coding Level of Care Code ED Assembler Body for Aracely De Leon
[2023-11-01 17:00] VITALS: BP 138/82; PULSE 96; O2SAT 97
[2023-11-01 17:09] LABS: Basophils % 0.3 %; Eosinophils # 0.1 10^3/uL (0.0-0.8); Eosinophils % 1.5 %; Hematocrit 39.7 % (36-47); Lymphocytes # 0.8 10^3/uL (0.8-4.8); Lymphocytes % 13.5 %; Mean Corpuscular HGB Conc 33.2 g/dL (30-55); Mean Corpuscular Volume 84.3 fl (85-98); Mean Platelet Volume 9.3 fL (7.4-10.4); Monocytes # 0.5 10^3/uL (0.2-0.9); Neutrophils # 4.42 10^3/uL (1.8-7.7); Neutrophils % 75.5 %; Nucleated Red Blood Cells % 0 %; Platelet Count 201 10^3/cmm (157-399); Red Blood Count 4.71 10^6/uL (3.85-5.65); Red Cell Distribution Width 12.7 % (12.1-15.1); White Blood Count 5.86 10^3/uL (3.29-11.43)
[2023-11-01] MEDS: ondansetron 2 mg/ML SDV 2 mL 4 MG IVP (17:13)
[2023-11-01] MEDS: sodium chloride 0.9% 1,000 ML 999 ML IV (17:13)
[2023-11-01 17:31] LABS: Alanine Aminotransferase 19 U/L (0-33); Albumin Level 4.2 g/dL (3.5-5.2); Alkaline Phosphatase 98 U/L (35-105); Anion Gap 12.9 (5-19); Aspartate Amino Transferase 13 U/L (0-32); Blood Urea Nitrogen 8 mg/dL (6-20); Calcium 9.3 mg/dL (8.5-10.5); Carbon Dioxide 25 mmol/L (22-29); Chloride 103 mmol/L (98-107); Creatinine Clr Calc Pharmacy 146.4877; Globulin 3.2 g/dL (1.3-4.6); Glomerular Filtration Rate 85.4 mL/min (90-130); Glucose 87 mg/dL (65-115); Osmolality Calculated 282 mOsm/kg (285-295); Potassium 3.9 mmol/L (3.5-5.1); Sodium 137 mmol/L (136-145); Total Bilirubin 0.2 mg/dL (0.15-1.2); Total Protein 7.4 g/dL (6.6-8.7)
[2023-11-01 18:11] LABS: Influenza A by IFA negative (Negative); Influenza B by IFA negative (Negative)
[2023-11-01 18:16] LABS: SARS Covid-2 Antigen Positive (Negative)
[2023-11-01 19:14] VITALS: BP 138/61; PULSE 84; RESP 24; O2SAT 98
[2023-11-01 19:18] LABS: HCG Qualitative Urine. Negative (Negative)
[2023-11-01] MEDS: lactated ringers 1,000 ML 999 ML IV (19:19)
[2023-11-01 19:31] LABS: Add Urine Microscopic? YES; Bilirubin Urine 1+ (Negative); Blood Urine 3+ (Negative); Glucose Urine UA Norm (Normal); Ketones Urine 1+ (Negative); Leukocyte Esterase Urine 1+ (Negative); Nitrate Urine Negative (Negative); Protein Urine 1+ (Negative); Urine Appearance Hazy (CLEAR); Urine Color Amber (Yellow); Urobilinogen Urine Norm (Negative); pH Urine 5 (5-7)
[2023-11-01 19:33] LABS: Add Urine Culture? Yes; Amorphous Sediment Urine 2+ /hpf; Bacteria Urine 1+ /hpf; Mucus Urine 3+ /hpf; WBC Urine 25-40 /hpf (0-5)
[2023-11-01 20:19] VITALS: BP 145/69; PULSE 70; RESP 14; O2SAT 97
== END 2023-11-01 20:20 | disposition home or self-care (01) ==
PROVIDERS: Emergency Provider Emergency Medicine; PCP Family Medicine
DX: U07.1 COVID-19 (principal); N39.0 Urinary tract infection, site not specified
CPT/HCPCS: 36415; 71045; 80053; 81001; 81025; 85025; 87086; 87426; 87804; 93005; 96361; 96374; 99285; J2405; J7030; J7120

== ENCOUNTER 2023-11-27 16:49 | Emergency (ER) | payer MEDICAID, SELFPAY ==
--- NOTE | 2023-11-27 16:53 | ECG_ITS ---
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 Measurements Intervals [place] Rate: 98 P: 40 IN: 140 QRS: 16 QRSD: 96 T: 30 QT: 340 QTc: 436 Interpretive Statements SINUS RHYTHM Compared to ECG 11/01/2023 15:09:07 No significant changes Electronically Signed On 11-27-2023 17:48:13 APARTMENT HOUSE MANAGER by Emanuel Lagos M.D. [email or web address]
[2023-11-27 16:54] VITALS: BP 153/84; PULSE 97; RESP 18; O2SAT 98; BMI 48.2
--- NOTE | 2023-11-27 19:31 | PC.NURSE ---
called in waiting room Patient was called back for room placement by RN. no answer in waiting room.
== END 2023-11-27 19:33 | disposition left against medical advice (07) ==
PROVIDERS: Emergency Provider Family Medicine; PCP Family Medicine
DX: Z53.21 Procedure and treatment not carried out due to patient leaving prior to being seen by health care provider (principal)
CPT/HCPCS: 93005

== ENCOUNTER → 2024-02-12 10:08 | Outpatient (BNVA) | payer MEDICAID, SELFPAY | PROVIDERS: PCP Family Medicine; Visit Provider Nurse Practitioner Family | DX: R07.9 Chest pain, unspecified (principal); I10 Essential (primary) hypertension; F31.81 Bipolar II disorder; K21.9 Gastro-esophageal reflux disease without esophagitis; R60.9 Edema, unspecified; F41.9 Anxiety disorder, unspecified | CPT/HCPCS: 80053; 80061; 83735; 83880; 84443; 85025; 93005 ==

== ENCOUNTER 2024-02-23 09:28 | Outpatient (CLI) | payer MEDICAID, SELFPAY ==
--- NOTE | 2024-02-23 09:30 | USCV_ITS ---
February Age: 28 Gender: F : 1995 Exam Date: 02/23/2024 09:59 Ordering Phys: Saray Duarte NP Technologist: RANGEL [place] [facility] [place] CP, Swelling BP: 158 / 90 HR: 181 Rhythm: Sinus Technical Quality: Adequate MEASUREMENTS (Male / Female) Normal Values 2D ECHO LV Diastolic Diameter PLAX 4.7 cm 4.2 - 5.9 / 3.9 - 5.3 cm IVS Diastolic Thickness 0.7 cm 0.6 - 1.0 / 0.6 - 0.9 cm IVS Systolic Thickness 1.6 cm LVPW Diastolic Thickness 1.1 cm 0.6 - 1.0 / 0.6 - 0.9 cm LVPW Systolic Thickness 1.8 cm LVOT Diameter 2.2 cm LV Ejection Fraction 2D Teich 78.5 % LV Ejection Fraction MOD 2C 36.7 % LV Ejection Fraction 2C AL 41.1 % LA Diameter 3.5 cm RA Systolic Volume 4C AL 19.6 ml RA Systolic Volume 4C MOD 19.4 ml LA Sys Volume AL 27.1 cm cubed LA Sys Volume Index AL 8.5 cm cubed/m squared Aorta at Sinotubular Diameter 2.4 cm IVC Diameter 1.7 cm M-MODE LA Ao Ratio MM 1.4 AV Cusp Separation MM 1.7 cm DOPPLER AV Peak Velocity 166.0 cm/s LVOT Peak Velocity 104.0 cm/s AV Area Cont Eq vti 2.5 cm squared AV Area Cont Eq pk 2.3 cm squared MV Peak Velocity 102.0 cm/s MV Area PHT 2.7 cm squared Mitral E to A Ratio 1.9 TR Peak Velocity 90.0 cm/s TR Peak Gradient 3.2 mmHg TR Mean Velocity 55.0 cm/s TR Mean Gradient 1.4 mmHg TR Velocity Time Integral 15.3 cm TV Peak E Velocity 99.0 cm/s Right Atrial Pressure 3.0 mmHg Pulmonary Artery Systolic Pressu 6.2 mmHg PV Peak Velocity 109.0 cm/s RV Ejection Time 0.3 s FINDINGS Left Ventricle Left ventricle is normal size. LV systolic function is normal with EF of 55 to 60%. No regional wall motion abnormalities are seen. Right Ventricle Normal in size and function Right Atrium Normal in size Left Atrium Normal in size Mitral Valve Structurally normal mitral valve. Trace mitral regurgitation. Aortic Valve Structurally normal aortic valve. No significant stenosis or regurgitation. Tricuspid Valve Insufficient TR jet to evaluate RVSP. Pulmonic Valve Not well visualized Pericardium Normal Aorta Normal in size IVC Appears to be normal CONCLUSIONS LV systolic function is normal with EF of 55-60% Trace mitral regurgitation No comparison studies are available. Emanuel Lagos MD (Electronically Signed) Final Date: 08 March 2024 17:50 S
== END 2024-02-23 09:29 | disposition home or self-care (01) ==
LOC: RAD 09:28
PROVIDERS: PCP Family Medicine; Visit Provider Nurse Practitioner Family
DX: R07.9 Chest pain, unspecified (principal); I10 Essential (primary) hypertension; R60.1 Generalized edema
CPT/HCPCS: 93306

== ENCOUNTER → 2024-05-31 09:13 | Outpatient (BNVA) | payer MEDICAID, SELFPAY | PROVIDERS: PCP Family Medicine; Visit Provider Nurse Practitioner Family | DX: F41.9 Anxiety disorder, unspecified (principal); F31.81 Bipolar II disorder; I10 Essential (primary) hypertension; K21.9 Gastro-esophageal reflux disease without esophagitis | CPT/HCPCS: 80053; 80061; 85025 ==

== ENCOUNTER 2024-06-23 16:38 | Inpatient (IN) | payer MEDICAID, SELFPAY ==
--- NOTE | 2024-06-23 16:51 | W.ED.PSYCHS ---
HPI - Psych General: Chief Complaint: Psychiatric Symptoms Stated Complaint: si Time Seen by Provider: 06/23/24 16:42 Source: patient and EMS Mode of arrival: EMS Limitations: no limitations History of Present Illness: This patient was transported to the emergency department by EMS. Her family notified EMS earlier today and she was transported from her home. She endorses feelings of sadness which have increased recently although she states she has had feelings of sadness and depression more than half of her life. She states that she takes medications prescribed by her primary care doctor in [place] but she feels like some of those medications may be contributing to her sadness but she cannot specify which medicines. She says she has been taking them faithfully. She does drink alcohol periodically and states her last drink was approximately 3 days ago. She denies any street drugs. She attributes some of her symptoms to her ongoing sadness about her son who was taken from the home and is in the custody of his father. She has a 3-year-old currently living in the home with her who is currently being monitored by her best friend. She told EMS that she would harm herself by cutting herself but did not relay any specific plan to me. She does present desiring additional help and perhaps medication adjustments and any other intervention that can perhaps improve her. She states she has had prior attempts to harm herself in the past. MD complaint: suicidal ideation and feels depressed Duration: getting worse History of same: Yes Associated symptoms: Reports depression and suicidal ideation; Deny auditory hallucinations, visual hallucinations or homicidal ideation If self harm: admits thoughts of self harm Related Data Previous Rx's Medication Instructions Recorded benzonatate 100 mg capsule 100 mg PO TID PRN cough #90 caps 03/31/24 lisinopril 5 mg tablet 5 mg PO DAILY 30 days #30 tabs 03/31/24 cetirizine 10 mg tablet 10 mg PO DAILY 90 days #90 tabs 05/03/24 spironolactone 50 mg tablet 50 mg PO QAM 30 days #30 tabs 05/03/24 escitalopram oxalate 20 mg tablet 20 mg PO DAILY 90 days #90 tabs 05/31/24 (Lexapro) gabapentin 300 mg capsule 600 mg (2 x 300 mg) PO TID 30 days 05/31/24 #180 caps Allergies Allergy/AdvReac Type Severity Reaction Status Date / Time hydrocodone Allergy ADR-Irritab Verified 11/27/23 16:57 le latex Allergy ALGY-Swell Verified 11/27/23 16:57 Lip/Tongue/Throat Penicillins Allergy ALGY-Swell Verified 11/27/23 16:57 Lip/Tongue/Throat Review of Systems General: Reports: 10 or more systems reviewed and unremarkable except in HPI and below Psych: Reports: depression, mood swings, difficulty concentrating and suicidal ideation; Denies: visual hallucinations, auditory hallucinations or homicidal ideation Endo: Denies: polyuria or polydipsia PFSH ED PFSH: Medical History Asthma Surgical History H/O right knee surgery H/O bilateral salpingectomy (07/31/22) 07/31/2022: laparoscopic bilateral salpingectomy performed by Dr. Marsh at [facility] Hx of laparoscopy (~10/09/22) Diagnostic Laprascopy performed on 10/09/[address] Marsh [address] [facility]. No findings for pelvic pain. Family History Mother Bleeding disorder Stroke Thyroid disease Breast cancer, Onset Age: 23 been diagnosed twice Father Hypertension Stroke Grandmother Stroke paternal Heart disease paternal Breast cancer maternal and paternal 50's Denies family history of Colon cancer Ovarian cancer Diabetes Clotting disorder Hyperlipidemia Anesthesia complication Uterine cancer Social History Smoking and tobacco/nicotine status: current every day tobacco/nicotine user (VAPER DAILY) Substance/Drug Use: never Physical Exam Narrative: EXAM NARRATIVE: sHE is tearful speaks in a low volume voice but will answer questions. Appears somewhat disheveled and ill kept. Const: COMMON NORMALS: patient oriented x3 and alert GENERAL APPEARANCE: cooperative and disheveled NUTRITIONAL APPEARANCE: overweight HENMT: COMMON NORMALS: normocephalic, atraumatic, Normal nasal mucous membranes and turbinates present and moist oral mucous membranes HEAD & SCALP: normocephalic and atraumatic NOSE: Normal nasal mucous membranes and turbinates present Eye: COMMON NORMALS: Equal, round and reactive pupils present, EOMs intact bilaterally and conjunctivae normal CONJUNCTIVA: Yes conjunctivae normal PUPIL: Yes Equal, round and reactive pupils present Neck/C-Spine: COMMON NORMALS: full ROM and Thyroid normal THYROID: Thyroid normal Resp: COMMON NORMALS: normal respiratory effort, No use of accessory muscles and clear to auscultation bilaterally EFFORT & INSPECTION: Yes able to speak in complete sentences AUSCULTATION: clear to auscultation bilaterally Cardio: COMMON NORMALS: regular rate, regular rhythm and Peripheral pulses 2+ throughout RATE: regular rate RHYTHM: regular rhythm PERIPHERAL PULSES: Peripheral pulses 2+ throughout GI: COMMON NORMALS: Normal to inspection, nondistended, normoactive bowel sounds present : COMMON NORMALS: Yes no CVA tenderness BLADDER/KIDNEY EXAM: Yes no CVA tenderness Back/Pelvis: COMMON NORMALS: no CVA tenderness and thoracic and lumbar spine normal to inspection Extremity: COMMON NORMALS: normal to inspection, full ROM and capillary refill normal Neuro: COMMON NORMALS: patient oriented x3, moves all extremities, no focal motor deficits and no sensory deficits noted SENSORIUM/ORIENTATION: Yes alert Psych: COMMON NORMALS: Normal thought process present APPEARANCE: Yes unkempt ATTITUDE: Yes Withdrawn affect present SPEECH: Yes soft MOOD & AFFECT: Yes depressed mood, Yes sad, Yes tearful and Yes Flat affect present THOUGHT PROCESS: Normal thought process present THOUGHT CONTENT: Yes Suicidality present INSIGHT: Fair insight present (Psych) Skin: COMMON NORMALS: no rashes or lesions noted and no wounds GENERAL SKIN EXAM: no rashes or lesions noted Course Consultations: Consultation #1: Discussed with Dr. Zavaleta who agreed to accept the patient. Time: 19:32 Vital Signs: Vital signs: Vital Signs Temperature 98.1 F 06/23/24 16:53 Pulse Rate 53 L 06/23/24 16:53 Respiratory Rate 18 06/23/24 16:53 Blood Pressure 119/75 06/23/24 16:53 Pulse Oximetry 98 06/23/24 16:53 Oxygen Delivery Me thod Room Air 06/23/24 16:53 MDM - Psych Medical Decision Making This patient presented to the emergency department as noted in the HPI. She has a longstanding history of depression being primarily managed by her primary care doctor. She states that that she has had some medication manipulations recently but that is not been helping her. She feels increasingly more desponded having thoughts of harming herself without any specific plan voiced to this examiner but did voice to others in the healthcare field today. Her clinical exam endorsed her sadness and depression. Medical screening examination did not find any contributing physical ailments at this time that would preclude her from a mental health evaluation. Her suicidality is indeterminate at this time but certainly not amenable to adjudication in the emergency department without further evaluation by mental health. Lab Data I reviewed the patient's lab results. 06/23/24 17:35 06/23/24 17:35 Laboratory Results WBC 7.79 10^3/uL (3.29-11.43) 06/23/24 17:35 RBC 4.64 10^6/uL (3.85-5.65) 06/23/24 17:35 Hgb 13.40 g/dL (11.27-16.99) 06/23/24 17:35 Hct 40.4 % (36-47) 06/23/24 17:35 MCV 87.1 fl (85-98) 06/23/24 17:35 MCH 28.9 pg (27-33) 06/23/24 17:35 MCHC 33.2 g/dL (30-55) 06/23/24 17:35 RDW 12.5 % (12.1-15.1) 06/23/24 17:35 Plt Count 296 10^3/cmm (157-399) 06/23/24 17:35 MPV 10.1 fL (7.4-10.4) 06/23/24 17:35 Neut % (Auto) 55.7 % 06/23/24 17:35 Lymph % (Auto) 36.6 % 06/23/24 17:35 Metcalfe % (Auto) 5.4 % 06/23/24 17:35 Eos % (Auto) 1.4 % 06/23/24 17:35 Baso % (Auto) 0.6 % 06/23/24 17:35 Neut # (Auto) 4.34 10^3/uL (1.8-7.7) 06/23/24 17:35 Lymph # (Auto) 2.9 10^3/uL (0.8-4.8) 06/23/24 17:35 Metcalfe # (Auto) 0.4 10^3/uL (0.2-0.9) 06/23/24 17:35 Eos # (Auto) 0.1 10^3/uL (0.0-0.8) 06/23/24 17:35 Baso # (Auto) 0.1 10^3/uL (0.0-0.1) 06/23/24 17:35 Nucleated RBC % (auto) 0 % 06/23/24 17:35 Nucleated RBCs # 0.0 /100WBC 06/23/24 17:35 Sodium 139 mmol/L (136-145) 06/23/24 17:35 Potassium 3.8 mmol/L (3.5-5.1) 06/23/24 17:35 Chloride 103 mmol/L (98-107) 06/23/24 17:35 Carbon Dioxide 27 mmol/L (22-29) 06/23/24 17:35 Anion Gap 12.8 (5-19) 06/23/24 17:35 BUN 8 mg/dL (6-20) 06/23/24 17:35 Creatinine 0.6 mg/dL (0.5-0.9) 06/23/24 17:35 GFR Calculation 118.2 mL/min (90-130) 06/23/24 17:35 Glucose 85 mg/dL (65-115) 06/23/24 17:35 Calculated Osmolality 286 mOsm/kg (285-295) 06/23/24 17:35 Calcium 8.8 mg/dL (8.5-10.5) 06/23/24 17:35 Total Bilirubin 0.4 mg/dL (0.15-1.2) 06/23/24 17:35 AST 12 U/L (0-32) 06/23/24 17:35 ALT 14 U/L (0-33) 06/23/24 17:35 Alkaline Phosphatase 90 U/L (35-105) 06/23/24 17:35 Total Protein 7.5 g/dL (6.6-8.7) 06/23/24 17:35 Albumin 4.3 g/dL (3.5-5.2) 06/23/24 17:35 Globulin 3.2 g/dL (1.3-4.6) 06/23/24 17:35 TSH 1.55 uIU/mL (0.27-4.20) 06/23/24 17:35 HCG, Qual Negative (Negative) 06/23/24 18:57 Amorphous Sediment Not Reportable 06/23/24 18:57 Salicylates < 0.3 mg/dL (3-10) L 06/23/24 17:35 Acetaminophen < 5.0 ug/mL (10-30) L 06/23/24 17:35 No radiology studies performed this visit Discharge Plan Discharge Patient Disposition: Admitted As Inpatient Clinical Impression: Depression, Suicidal ideation Condition: Stable Prescriptions: No Action escitalopram oxalate [Lexapro] 20 mg tablet 20 mg PO DAILY 90 Days Qty: 90 1RF gabapentin 300 mg capsule 600 mg PO TID 30 Days Qty: 180 3RF lisinopril 5 mg tablet 5 mg PO DAILY 30 Days Qty: 30 5RF benzonatate 100 mg capsule 100 mg PO TID PRN (Reason: cough) Qty: 90 0RF spironolactone 50 mg tablet 50 mg PO QAM 30 Days Qty: 30 5RF cetirizine 10 mg tablet 10 mg PO DAILY 90 Days Qty: 90 0RF Referrals: Rajat Rodriguez MD [Primary Care Provider] - Coding Level of Care Code ED [employer] [facility]
[2024-06-23 16:53] VITALS: BP 119/75; PULSE 53; RESP 18; TEMP 36.7; O2SAT 98; BMI 45.5
[2024-06-23 18:12] LABS: Basophils # 0.1 10^3/uL (0.0-0.1); Basophils % 0.6 %; Eosinophils # 0.1 10^3/uL (0.0-0.8); Eosinophils % 1.4 %; Hematocrit 40.4 % (36-47); Lymphocytes # 2.9 10^3/uL (0.8-4.8); Lymphocytes % 36.6 %; Mean Corpuscular HGB Conc 33.2 g/dL (30-55); Mean Corpuscular Hemoglobin 28.9 pg (27-33); Mean Corpuscular Volume 87.1 fl (85-98); Mean Platelet Volume 10.1 fL (7.4-10.4); Monocytes # 0.4 10^3/uL (0.2-0.9); Monocytes % 5.4 %; Neutrophils # 4.34 10^3/uL (1.8-7.7); Neutrophils % 55.7 %; Nucleated Red Blood Cells % 0 %; Platelet Count 296 10^3/cmm (157-399); Red Blood Count 4.64 10^6/uL (3.85-5.65); Red Cell Distribution Width 12.5 % (12.1-15.1); White Blood Count 7.79 10^3/uL (3.29-11.43)
[2024-06-23 18:34] LABS: Alanine Aminotransferase 14 U/L (0-33); Albumin Level 4.3 g/dL (3.5-5.2); Alkaline Phosphatase 90 U/L (35-105); Anion Gap 12.8 (5-19); Aspartate Amino Transferase 12 U/L (0-32); Blood Urea Nitrogen 8 mg/dL (6-20); Calcium 8.8 mg/dL (8.5-10.5); Carbon Dioxide 27 mmol/L (22-29); Chloride 103 mmol/L (98-107); Creatinine Clr Calc Pharmacy 189.4539; Globulin 3.2 g/dL (1.3-4.6); Glomerular Filtration Rate 118.2 mL/min (90-130); Glucose 85 mg/dL (65-115); Osmolality Calculated 286 mOsm/kg (285-295); Potassium 3.8 mmol/L (3.5-5.1); Sodium 139 mmol/L (136-145); Thyroid Stimulating Hormone 1.55 uIU/mL (0.27-4.20); Total Bilirubin 0.4 mg/dL (0.15-1.2); Total Protein 7.5 g/dL (6.6-8.7)
[2024-06-23 18:45] LABS: Acetaminophen < 5.0 ug/mL (10-30); Salicylate < 0.3 mg/dL (3-10)
[2024-06-23 19:21] LABS: Charge for UA Resulting for Rev
[2024-06-23 19:24] LABS: Bilirubin Urine Negative (Negative); Blood Urine 3+ (Negative); Glucose Urine UA Negative (Normal); Ketones Urine Negative (Negative); Leukocyte Esterase Urine Trace (Negative); Nitrate Urine Negative (Negative); Protein Urine 1+ (Negative); Urine Appearance Clear (CLEAR); pH Urine 7.5 (5-7)
[2024-06-23 19:27] LABS: Bacteria Urine None Seen /hpf; HCG Qualitative Urine. Negative (Negative); Hyaline Casts Urine 0-4 /lpf; RBC Urine >100 /hpf (0-2)
[2024-06-23 19:29] LABS: Urine Color Red (Yellow)
[2024-06-23 19:30] LABS: Add Urine Culture? Yes
[2024-06-23 19:31] LABS: Amphetamines Screen Urine Negative (Negative); Barbiturates Screen Urine Negative (Negative); Benzodiazepines Screen Urine Negative (Negative); Cocaine Screen Urine Negative (Negative); Opiate Screen Urine Negative (Negative); PCP Screen Urine Negative (Negative); THC Screen Urine Negative (Negative)
[2024-06-23 19:36] VITALS: BP 136/94; PULSE 64; RESP 20; TEMP 37.1; O2SAT 100
[2024-06-23 20:44] VITALS: BP 139/78; PULSE 55; RESP 16; TEMP 36.9; O2SAT 97
[2024-06-24 06:00] VITALS: BP 92/53; PULSE 67; RESP 18; TEMP 36.6; O2SAT 96
[2024-06-24] MEDS: spironolactone 25 mg Tablet 50 MG PO (08:57)
[2024-06-24] MEDS: gabapentin 300 mg Capsule 600 MG PO ×3 (08:57→20:24)
[2024-06-24] MEDS: escitalopram 10 mg Tablet 20 MG PO (08:57)
[2024-06-24] MEDS: lisinopril 5 mg Tablet PO (08:57)
--- NOTE | 2024-06-24 12:07 | P.NPUHP_ITS ---
Providers/Chief Complaint 2 Admitting Physician: Jones Zavaleta MD Primary Care Provider: Rajat Rodriguez MD Chief Complaint: si HPI NPU History of Present Illness February Ehsan is a 29 year old female Chief Complaint: Psychiatric Symptoms Stated Complaint: si Time Seen by Provider: 06/23/24 16:42 Source: patient and EMS Mode of arrival: EMS Limitations: no limitations History of Present Illness: This patient was transported to the emergency department by EMS. Her family notified EMS earlier today and she was transported from her home. She endorses feelings of sadness which have increased recently although she states she has had feelings of sadness and depression more than half of her life. She states that she takes medications prescribed by her primary care doctor in [place] but she feels like some of those medications may be contributing to her sadness but she cannot specify which medicines. She says she has been taking them faithfully. She does drink alcohol periodically and states her last drink was approximately 3 days ago. She denies any street drugs. She attributes some of her symptoms to her ongoing sadness about her son who was taken from the home and is in the custody of his father. She has a 3-year-old currently living in the home with her who is currently being monitored by her best friend. She told EMS that she would harm herself by cutting herself but did not relay any specific plan to me. She does present desiring additional help and perhaps medication adjustments and any other intervention that can perhaps improve her. She states she has had prior attempts to harm herself in the past. complaint: suicidal ideation and feels depressed Duration: getting worse History of same: Yes Associated symptoms: Reports depression and suicidal ideation; Deny auditory hallucinations, visual hallucinations or homicidal ideation If self harm: admits thoughts of self harm. She was admitted to the neuropsychiatric unit for definitive treatment of those issues. She is unknown to inpatient and outpatient services at [facility]. She presents today reporting: Chief complaint The patient expressed dissatisfaction with previous psychiatric treatments, stating that they made him feel like a zombie . He also mentioned a recent incident involving an argument with his father that led to police involvement and subsequent hospitalization. The patient also expressed concerns about his increasing tobacco use and a decline in his mental abilities, particularly memory and cognitive function. History of the present complaint The patient, born on [birth year], reported a history of psychiatric consultations and treatments, with a particular mention of antidepressants and antipsychotics. He expressed dissatisfaction with previous treatments, stating that they made him feel like a zombie and had negative effects on his mental state. He mentioned having been prescribed a variety of medications in the past, including Prozac, Zyprexa, Invega, Risperdal, and Geodon. The patient reported that Geodon had particularly adverse effects on his cognitive abilities, impairing his memory and ability to play chess. The patient reported a recent incident involving an argument with his father that escalated to the point where the police were called. He described feeling anxious during this incident but did not report any other specific triggers for his symptoms. He also mentioned a urinary infection diagnosed during a recent hospital visit. The patient reported an increase in smoking habits over the past two months, escalating from a pack every two days to up to two packs a day. However, he stated that he has not experienced significant difficulty in quitting smoking since being hospitalized. The patient has been hospitalized in a psychiatric botello twice in his life, both times due to what he describes as misunderstandings. He also reported receiving outpatient services at [facility] in [place], [place], where he received counseling and case management services. 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 He also mentioned living in a shelter house for eight months as part of his recovery process. The patient expressed concerns about his mental health, particularly regarding memory retention and cognitive function. He also reported witnessing disturbing events in his neighborhood involving his neighbors, which have caused him distress. Despite these challenges, the patient denied experiencing suicidal ideation or self-harming behaviors. He also denied experiencing hallucinations or paranoia. However, he did express feelings of being called to do something significant, particularly feeling drawn to the [facility]. The patient reported some emotional neglect during childhood but denied any physical or sexual abuse. He also mentioned having dyslexia and requiring speech therapy as a child. Regarding substance use, the patient admitted to occasional alcohol use when in the [facility] and regular cannabis use. However, he clarified that the cannabis he uses has low THC content and does not get him high but rather calms him down. In terms of emotional state, the patient described feeling decent on the day of the consultation. He denied any current thoughts of self-harm or harm towards others. He also denied experiencing any hallucinations or paranoia on that day. The patient expressed reluctance towards taking medication for his mental health issues but acknowledged that he might need to take medication temporarily to facilitate his discharge from the hospital. Mental health history The patient has a history of psychiatric consultations and has been prescribed various antipsychotics and antidepressants in the past, including Prozac, Zyprexa, Invega, Risperdal, and Geodon. However, he reported negative experiences with these medications, stating they made him feel like a zombie and negatively impacted his memory. This is his second time being hospitalized in a psychiatric botello. He also mentioned attending [facility] for counseling and case management services. Social history The patient reported an increase in tobacco use over the past two months, from a pack every two days to up to two packs a day. He also mentioned occasional alcohol consumption when in the [facility] and previous use of cannabis and methamphetamines. He has been in a shelter house for eight months in the past. The patient also mentioned having been homeless at one point. Meds NPU Home Medications Medication Instructions Recorded Confirmed Last Taken Type benzonatate 100 mg capsule 100 mg PO TID PRN cough #90 caps 03/31/24 05/03/24 Unknown Rx lisinopril 5 mg tablet 5 mg PO DAILY 30 days #30 tabs 03/31/24 05/31/24 Unknown Rx cetirizine 10 mg tablet 10 mg PO DAILY 90 days #90 tabs 05/03/24 05/31/24 Unknown Rx spironolactone 50 mg tablet 50 mg PO QAM 30 days #30 tabs 05/03/24 05/31/24 Unknown Rx escitalopram oxalate 20 mg tablet 20 mg PO DAILY 90 days #90 tabs 05/31/24 05/31/24 Unknown Rx (Lexapro) gabapentin 300 mg capsule 600 mg (2 x 300 mg) PO TID 30 days 05/31/24 05/31/24 Unknown Rx #180 caps Allergies Allergy/AdvReac Type Severity Reaction Status Date / Time hydrocodone Allergy ADR-Irritab Verified 11/27/23 16:57 le latex Allergy ALGY-Swell Verified 11/27/23 16:57 Lip/Tongue/Throat Penicillins Allergy ALGY-Swell Verified 11/27/23 16:57 Lip/Tongue/Throat PFSH NPU 2 PFSH: Medical History Asthma Surgical History H/O right knee surgery H/O bilateral salpingectomy (07/31/22) 07/31/2022: laparoscopic bilateral salpingectomy performed by Dr. Marsh at [facility] Hx of laparoscopy (~10/09/22) Diagnostic Laprascopy performed on 10/09/[address] Marsh at [facility]. No findings for pelvic pain. Family History Mother Bleeding disorder Stroke Thyroid disease Breast cancer, Onset Age: 23 been diagnosed twice Father Hypertension Stroke Grandmother Stroke paternal Heart disease paternal Breast cancer maternal and paternal 50's Denies family history of Colon cancer Ovarian cancer Diabetes Clotting disorder Hyperlipidemia Anesthesia complication Uterine cancer Social History Smoking and tobacco/nicotine status: current every day tobacco/nicotine user (VAPER DAILY) Substance/Drug Use: never Mental Status Exam 2 MSE Comments: This is an obese versus morbidly obese white female in hospital scrubs with limited grooming and eye contact. No abnormal movements except for psychomotor retardation. Cooperative with exam in mild to moderate distress. Speech was slightly decreased rate and volume. Mood described as depressed and anxious, affect congruent. Thought process organized, thought content: patient denies suicidal or homicidal ideation, there were no delusions reported or noted, she denied any auditory or visual hallucinations. The patient denied experiencing suicidal ideation or thoughts of violence towards others. He reported feeling anxious but denied feelings of paranoia or hallucinations. He did express concerns about his declining memory and cognitive abilities, particularly when playing chess. The patient also reported experiencing flashes during the day but denied having nightmares or flashbacks. Attention and concentration were intact and memory appeared unreliable but none were formally tested. She?s alert and oriented times three. Insight and judgment appeared limited and impulse control appeared limited. Vitals/I&O/Wt Last Vital Signs Temp 97.9 F 06/24/24 06:00 Pulse 67 06/24/24 06:00 Resp 18 06/24/24 06:00 BP 92/53 06/24/24 06:00 Pulse Ox 96 06/24/24 06:00 O2 Del Method Room Air 06/24/24 06:00 Weight last 48 hrs Weight 127.913 kg Data NPU 06/23/24 17:35 06/23/24 17:35 A&P Assessment and plan (1) Suicidal ideation: (2) Major depressive disorder, recurrent: (3) PTSD (post-traumatic stress disorder): (4) HARMONY (generalized anxiety disorder): (5) Partner relational problem: (6) Parent-child relational problem: (7) Morbid obesity: Plan This is a 29-year-old white female with a long history of trauma, depression, PTSD and 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 The patient appears to have a complex psychiatric history with dissatisfaction towards previous treatments. He has reported an increase in anxiety and tobacco use, as well as concerns about declining cognitive abilities. There is also a history of substance use including cannabis and methamphetamines. 1. Continue current medication. Add Wellbutrin XL 150 mg p.o. daily. 2. Continue every 15 minute checks for safety. 3. Encourage individual, group and milieu therapies. 4. Obtain collateral information. Involuntary Hold Information 2 96 Hour Hold: 96 Hour Involuntary Admission: No Attestations NPU 2 Medical Necessity Statement*: Inpatient hospitalization is medically necessary and the clinically appropriate intervention at this time. We will monitor medication to make changes as indicated. Patient will be in the hospital for over two midnights. Likely length of stay 4-6 days. Coding Level of Care Code Acute Code for [facility] Fwd Diagnoses Suicidal ideation R45.851 Major depressive disorder, recurrent F33.9 PTSD (post-traumatic stress disorder) F43.10 HARMONY (generalized anxiety disorder) F41.1 Partner relational problem Z63.0 Parent-child relational problem Z62.820 Morbid obesity E66.01
[2024-06-24 13:23] VITALS: BP 138/83; PULSE 61; RESP 16; TEMP 36.6; O2SAT 97
--- NOTE | 2024-06-24 14:31 | PC.NURSE ---
This nurse encouraged pt to get up and attend 1400 group session, pt declined. Pt hasn't eaten all shift and has been encouraged to at least drink water to stay hydrated. Pt has been laying in bed all shift and has isolated herself from peers.
[2024-06-24] MEDS: nicotine 4 mg lozenge MUCOUS MEM (20:25)
[2024-06-24] MEDS: buPROPion SR (12 HR) 150 mg Tablet PO (20:25)
[2024-06-24] MEDS: loperamide 2 mg Capsule PO (20:26)
[2024-06-24] MEDS: hyDROXYzine 25 mg Capsule 50 MG PO (20:26)
[2024-06-24 20:47] VITALS: BP 123/77; PULSE 77; RESP 18; TEMP 37.2; O2SAT 96
[2024-06-25 06:00] VITALS: BP 106/70; PULSE 58; RESP 17; TEMP 36.6; O2SAT 97
[2024-06-25] MEDS: buPROPion XL (24 HR) 150 mg Tablet PO (10:22)
[2024-06-25] MEDS: spironolactone 25 mg Tablet 50 MG PO (10:22)
[2024-06-25] MEDS: lisinopril 5 mg Tablet PO (10:22)
[2024-06-25] MEDS: gabapentin 300 mg Capsule 600 MG PO ×3 (10:22→20:20)
[2024-06-25] MEDS: escitalopram 10 mg Tablet 20 MG PO (10:22)
[2024-06-25] MEDS: loperamide 2 mg Capsule PO (13:46)
--- NOTE | 2024-06-25 13:56 | P.NPUPN_ITS ---
Subjective NPU 2 Subjective: Patient presented today reporting that she was feeling a little shaky. She is unsure if that is related to the initiation of the Wellbutrin. She reports that maybe she was not taking her patient as prescribed and wondered if the way she was feeling was related to us giving her all her medications as they are prescribed. We discussed reviewing this in the morning and seeing if maybe we needed to make some changes based on this new information and she agreed that we could do that. Mental Status Exam 2 MSE Comments: This is an obese versus morbidly obese white female in hospital scrubs with limited grooming and eye contact. No abnormal movements except for psychomotor retardation. Cooperative with exam in mild to moderate distress. Speech was slightly decreased rate and volume. Mood described as depressed and anxious, affect congruent. Thought process organized, thought content: patient denies suicidal or homicidal ideation, there were no delusions reported or noted, she denied any auditory or visual hallucinations. The patient denied experiencing suicidal ideation or thoughts of violence towards others. He reported feeling anxious but denied feelings of paranoia or hallucinations. He did express concerns about his declining memory and cognitive abilities, particularly when playing chess. The patient also reported experiencing flashes during the day but denied having nightmares or flashbacks. Attention and concentration were intact and memory appeared unreliable but none were formally tested. She?s alert and oriented times three. Insight and judgment appeared limited and impulse control appeared limited. Vitals/I&O/Wt Last Vital Signs Temp 97.8 F 06/25/24 06:00 Pulse 58 L 06/25/24 06:00 Resp 17 06/25/24 06:00 BP 106/70 06/25/24 06:00 Pulse Ox 97 06/25/24 06:00 O2 Del Method Room Air 06/25/24 06:00 Weight last 48 hrs Weight 127.913 kg Data NPU 06/23/24 17:35 06/23/24 17:35 Micro: Microbiology 06/23/24 18:57 Urine Culture - Preliminary Urine,Clean Catch Microbiology 06/23/24 18:57 Urine,Clean Catch Urine Culture - Preliminary A&P Assessment and plan (1) Suicidal ideation: (2) Major depressive disorder, recurrent: (3) PTSD (post-traumatic stress disorder): (4) HARMONY (generalized anxiety disorder): (5) Partner relational problem: (6) Parent-child relational problem: (7) Morbid obesity: Plan This is a 29-year-old white female with a long history of trauma, depression, PTSD and 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 The patient appears to have a complex psychiatric history with dissatisfaction towards previous treatments. He has reported an increase in anxiety and tobacco use, as well as concerns about declining cognitive abilities. There is also a history of substance use including cannabis and methamphetamines. 1. Continue current medication. Added Wellbutrin XL 150 mg p.o. daily. 2. Continue every 15 minute checks for safety. 3. Encourage individual, group and milieu therapies. 4. Obtain collateral information. Involuntary Hold Information 2 96 Hour Hold: 96 Hour Involuntary Admission: No Attestations NPU 2 Medical Necessity Statement*: Inpatient hospitalization is medically necessary and the clinically appropriate intervention at this time. We will monitor medication to make changes as indicated. Likely length of stay 3-5 days. Coding Level of Care Code Acute Code for [facility] Diagnoses Suicidal ideation R45.851 Major depressive disorder, recurrent F33.9 PTSD (post-traumatic stress disorder) F43.10 HARMONY (generalized anxiety disorder) F41.1 Partner relational problem Z63.0 Parent-child relational problem Z62.820 Morbid obesity E66.01
[2024-06-25 14:00] VITALS: BP 145/84; PULSE 75; RESP 16; TEMP 37.2; O2SAT 91
[2024-06-25] MEDS: nicotine 2 mg Gum BUCCAL (15:01)
--- NOTE | 2024-06-25 15:14 | PC.NURSE ---
Patient reporting diarrhea, upset stomach, and vomiting. patient said that the onset of symptoms was when she came onto the unit. Patient thinks that the cause is anxiety. Administered immodium and pepto. Dr. Zavaleta aware of situation. Patient denies body aches and fatigue.
[2024-06-25] MEDS: bismuth subsalicylate 240 mL Btl 15 ML PO (15:16)
--- NOTE | 2024-06-25 18:30 | PC.NURSE ---
Patient's room searched for contraband by staff; no contraband found. Patient cooperative with search
[2024-06-25] MEDS: hyDROXYzine 25 mg Capsule 50 MG PO (20:30)
[2024-06-25 21:14] VITALS: BP 108/69; PULSE 68; RESP 16; O2SAT 96
--- NOTE | 2024-06-25 21:36 | PC.NURSE ---
AT 2030, PATIENT WAS GIVEN VISTARIL 50MG PO FOR ANXIETY. PATIENT STATED IT FEELS LIKE MY HEART IS RACING. VITAL SIGNS WITH IN NORMAL LIMITS FOLLOWS. T:97.9, P:69, R:18, BP:120/85. PATIENT ADVISED TO TRY TO SLOW/DEEP BREATHING. PATIENT STOPPED AT NURSES DESK AND STATED FEELING A LITTLE BETTER WHEN GOING TO BED.
[2024-06-25 21:40] VITALS: BP 120/85; PULSE 69; RESP 18; TEMP 36.6; O2SAT 96
[2024-06-26 06:00] VITALS: BP 113/75; PULSE 59; RESP 16; TEMP 36.6; O2SAT 97
[2024-06-26] MEDS: lisinopril 5 mg Tablet PO (08:01)
[2024-06-26] MEDS: escitalopram 10 mg Tablet 20 MG PO (08:01)
[2024-06-26] MEDS: gabapentin 300 mg Capsule 600 MG PO ×3 (08:01→20:13)
[2024-06-26] MEDS: buPROPion XL (24 HR) 150 mg Tablet PO (08:01)
[2024-06-26] MEDS: spironolactone 25 mg Tablet 50 MG PO (08:01)
[2024-06-26] MEDS: hyDROXYzine 25 mg Capsule 50 MG PO ×2 (11:25→20:12)
[2024-06-26] MEDS: trolamine salicylate 10% 141 gm Cream 1 APPLIC TOPICAL (12:49)
[2024-06-26 13:36] VITALS: BP 118/80; PULSE 60; RESP 16; TEMP 36.6; O2SAT 97
--- NOTE | 2024-06-26 17:27 | W.PM.NPUPNS ---
Subjective NPU Subjective: Patient presented today reporting that she is doing better than yesterday. She reports that she is feeling that things are more positive today than negative. She reports that the feeling she was having related to possibly restarting her medications and/or the initiation of Wellbutrin have since subsided. She denied any side effects to the medication and reports starting to think about discharge. We discussed the likelihood of discharge on Friday. Mental Status Exam MSE Comments: This is an obese versus morbidly obese white female in hospital scrubs with limited grooming and eye contact. No abnormal movements except for psychomotor retardation. Cooperative with exam in mild distress. Speech was slightly decreased rate and volume. Mood described as a little better, affect congruent. Thought process organized, thought content: patient denies suicidal or homicidal ideation, there were no delusions reported or noted, she denied any auditory or visual hallucinations. The patient denied experiencing suicidal ideation or thoughts of violence towards others. Attention and concentration were intact and memory appeared more reliable but none were formally tested. She?s alert and oriented times three. Insight and judgment appeared limited and impulse control appeared limited. Vitals/I&O/Wt Last Vital Signs Temp 97.8 F 06/26/24 13:36 Pulse 59 L 06/26/24 13:36 Resp 16 06/26/24 13:36 BP 113/75 06/26/24 13:36 Pulse Ox 97 06/26/24 13:36 O2 Del Method Room Air 06/26/24 13:36 Weight last 48 hrs Weight 128.423 kg Data NPU 06/23/24 17:35 06/23/24 17:35 Micro: Microbiology 06/23/24 18:57 Urine Culture - Final Urine,Clean Catch Microbiology 06/23/24 18:57 Urine,Clean Catch Urine Culture - Final A&P Assessment and plan (1) Suicidal ideation: (2) Major depressive disorder, recurrent: (3) PTSD (post-traumatic stress disorder): (4) HARMONY (generalized anxiety disorder): (5) Partner relational problem: (6) Parent-child relational problem: (7) Morbid obesity: Plan This is a 29-year-old white female with a long history of trauma, depression, PTSD and 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 The patient appears to have a complex psychiatric history with dissatisfaction towards previous treatments. He has reported an increase in anxiety and tobacco use, as well as concerns about declining cognitive abilities. There is also a history of substance use including cannabis and methamphetamines. 1. Continue current medication. Added Wellbutrin XL 150 mg p.o. daily. 2. Continue every 15 minute checks for safety. 3. Encourage individual, group and milieu therapies. 4. Obtain collateral information. Involuntary Hold Information 96 Hour Hold: 96 Hour Involuntary Admission: No Attestations NPU Medical Necessity Statement*: Inpatient hospitalization is medically necessary and the clinically appropriate intervention at this time. We will monitor medication to make changes as indicated. Likely length of stay 1-3 days. Coding Level of Care Code Acute Code for [facility] Fwd Diagnoses Suicidal ideation R45.851 Major depressive disorder, recurrent F33.9 PTSD (post-traumatic stress disorder) F43.10 HARMONY (generalized anxiety disorder) F41.1 Partner relational problem Z63.0 Parent-child relational problem Z62.820 Morbid obesity E66.01
[2024-06-26] MEDS: diclofenac 75 mg DR Tablet PO (18:07)
[2024-06-26 20:40] VITALS: BP 122/84; PULSE 70; RESP 18; TEMP 36.7; O2SAT 97
[2024-06-27 06:00] VITALS: BP 117/76; PULSE 106; RESP 16; TEMP 36.6; O2SAT 96
[2024-06-27] MEDS: gabapentin 300 mg Capsule 600 MG PO ×3 (08:53→20:24)
[2024-06-27] MEDS: escitalopram 10 mg Tablet 20 MG PO (08:54)
[2024-06-27] MEDS: spironolactone 25 mg Tablet 50 MG PO (08:54)
[2024-06-27] MEDS: buPROPion XL (24 HR) 150 mg Tablet PO (08:54)
[2024-06-27] MEDS: lisinopril 5 mg Tablet PO (08:54)
[2024-06-27] MEDS: diclofenac 75 mg DR Tablet PO ×2 (10:52→20:28)
[2024-06-27] MEDS: trolamine salicylate 10% 141 gm Cream 1 APPLIC TOPICAL ×2 (10:53→20:29)
[2024-06-27 13:05] VITALS: BP 109/61; PULSE 82; RESP 16; TEMP 36.6; O2SAT 95
[2024-06-27] MEDS: acetaminophen 325 mg Tablet 650 MG PO (13:05)
--- NOTE | 2024-06-27 13:50 | P.NPUPN_ITS ---
Subjective NPU 2 Subjective: Patient presented today reporting that she is better and wants to discharge. We discussed a plan to work with the social work team tomorrow to make sure that everything is in place and make sure she has appropriate follow-up. We talked to her and we agreed with plan for discharge tomorrow morning. We discussed continuing the medication as it has been prescribed and she denied any side effects to her medications. Mental Status Exam 2 MSE Comments: This is an obese versus morbidly obese white female in hospital scrubs with limited grooming and eye contact. No abnormal movements except for psychomotor retardation. Cooperative with exam in mild distress. Speech was slightly decreased rate and volume. Mood described as better, affect congruent. Thought process organized, thought content: patient denies suicidal or homicidal ideation, there were no delusions reported or noted, she denied any auditory or visual hallucinations. The patient denied experiencing suicidal ideation or thoughts of violence towards others. Attention and concentration were intact and memory appeared more reliable but none were formally tested. She?s alert and oriented times three. Insight and judgment appeared limited and impulse control appeared limited. Vitals/I&O/Wt Last Vital Signs Temp 97.9 F 06/27/24 13:05 Pulse 82 06/27/24 13:05 Resp 16 06/27/24 13:05 BP 109/61 06/27/24 13:05 Pulse Ox 95 06/27/24 13:05 O2 Del Method Room Air 06/27/24 13:05 Weight last 48 hrs Weight 128.423 kg Data NPU 06/23/24 17:35 06/23/24 17:35 Micro: Microbiology 06/23/24 18:57 Urine Culture - Final Urine,Clean Catch Microbiology 06/23/24 18:57 Urine,Clean Catch Urine Culture - Final A&P Assessment and plan (1) Suicidal ideation: (2) Major depressive disorder, recurrent: (3) PTSD (post-traumatic stress disorder): (4) HARMONY (generalized anxiety disorder): (5) Partner relational problem: (6) Parent-child relational problem: (7) Morbid obesity: Plan This is a 29-year-old white female with a long history of trauma, depression, PTSD and 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 The patient appears to have a complex psychiatric history with dissatisfaction towards previous treatments. He has reported an increase in anxiety and tobacco use, as well as concerns about declining cognitive abilities. There is also a history of substance use including cannabis and methamphetamines. 1. Continue current medication. Added Wellbutrin XL 150 mg p.o. daily. 2. Continue every 15 minute checks for safety. 3. Encourage individual, group and milieu therapies. 4. Obtain collateral information. Involuntary Hold Information 2 96 Hour Hold: 96 Hour Involuntary Admission: No Attestations NPU 2 Medical Necessity Statement*: Inpatient hospitalization is medically necessary and the clinically appropriate intervention at this time. We will monitor medication to make changes as indicated. Likely length of stay 1 day. Coding Level of Care Code Acute Code for [facility] Fwd Diagnoses Suicidal ideation R45.851 Major depressive disorder, recurrent F33.9 PTSD (post-traumatic stress disorder) F43.10 HARMONY (generalized anxiety disorder) F41.1 Partner relational problem Z63.0 Parent-child relational problem Z62.820 Morbid obesity E66.01
[2024-06-27] MEDS: bismuth subsalicylate 240 mL Btl 15 ML PO (20:23)
[2024-06-27] MEDS: hyDROXYzine 25 mg Capsule 50 MG PO (20:26)
[2024-06-27 20:31] VITALS: BP 137/75; PULSE 69; RESP 18; TEMP 37.2; O2SAT 95
[2024-06-28 06:00] VITALS: BP 108/70; PULSE 66; RESP 17; TEMP 36.4; O2SAT 97
--- NOTE | 2024-06-28 06:39 | W.PM.NPUDCS ---
Diagnoses at Discharge Discharge Diagnosis (1) Suicidal ideation: Status: Acute (2) Major depressive disorder, recurrent: Status: Acute (3) PTSD (post-traumatic stress disorder): Status: Acute (4) HARMONY (generalized anxiety disorder): Status: Acute (5) Partner relational problem: Status: Acute (6) Parent-child relational problem: Status: Acute (7) Morbid obesity: Status: Acute Reason for Visit Reason for Visit: si Involuntary Hold Information 96 Hour Hold: 96 Hour Involuntary Admission: No Mental Status Exam MSE Comments: This is an obese versus morbidly obese white female in hospital scrubs with limited grooming and eye contact. No abnormal movements except for psychomotor retardation. Cooperative with exam in mild distress. Speech was slightly decreased rate and volume. Mood described as better, affect congruent. Thought process organized, thought content: patient denies suicidal or homicidal ideation, there were no delusions reported or noted, she denied any auditory or visual hallucinations. The patient denied experiencing suicidal ideation or thoughts of violence towards others. Attention and concentration were intact and memory appeared more reliable but none were formally tested. She?s alert and oriented times three. Insight and judgment appeared limited and impulse control appeared limited. Discharge Data Studies Completed and Pending: Laboratory Results WBC 7.79 10^3/uL (3.2 9-11.43) 06/23/24 17:35 RBC 4.64 10^6/uL (3.8 5-5.65) 06/23/24 17:35 Hgb 13.40 g/dL (11.27 -16.99) 06/23/24 17:35 Hct 40.4 % (36-47) 06/23/24 17:35 MCV 87.1 fl (85-98) 06/23/24 17:35 MCH 28.9 pg (27-33) 06/23/24 17:35 MCHC 33.2 g/dL (30-55) 06/23/24 17:35 RDW 12.5 % (12.1-15.1 ) 06/23/24 17:35 Plt Count 296 10^3/cmm (157 -399) 06/23/24 17:35 MPV 10.1 fL (7.4-10.4 ) 06/23/24 17:35 Neut % (Auto) 55.7 % 06/23/24 17:35 Lymph % (Auto) 36.6 % 06/23/24 17:35 [place] % (Auto) 5.4 % 06/23/24 17:35 Eos % (Auto) 1.4 % 06/23/24 17:35 Baso % (Auto) 0.6 % 06/23/24 17:35 Neut # (Auto) 4.34 10^3/uL (1.8 -7.7) 06/23/24 17:35 Lymph # (Auto) 2.9 10^3/uL (0.8- 4.8) 06/23/24 17:35 [place] # (Auto) 0.4 10^3/uL (0.2- 0.9) 06/23/24 17:35 Eos # (Auto) 0.1 10^3/uL (0.0- 0.8) 06/23/24 17:35 Baso # (Auto) 0.1 10^3/uL (0.0- 0.1) 06/23/24 17:35 Nucleated RBC % (a uto) 0 % 06/23/24 17:35 Nucleated RBCs # 0.0 /100WBC 06/23/24 17:35 Sodium 139 mmol/L (136-1 45) 06/23/24 17:35 Potassium 3.8 mmol/L (3.5-5 .1) 06/23/24 17:35 Chloride 103 mmol/L (98-10 7) 06/23/24 17:35 Carbon Dioxide 27 mmol/L (22-29) 06/23/24 17:35 Anion Gap 12.8 (5-19) 06/23/24 17:35 BUN 8 mg/dL (6-20) 06/23/24 17:35 Creatinine 0.6 mg/dL (0.5-0. 9) 06/23/24 17:35 GFR Calculation 118.2 mL/min (90- 130) 06/23/24 17:35 Glucose 85 mg/dL (65-115) 06/23/24 17:35 Calculated Osmolal ity 286 mOsm/kg (285- 295) 06/23/24 17:35 Calcium 8.8 mg/dL (8.5-10 .5) 06/23/24 17:35 Total Bilirubin 0.4 mg/dL (0.15-1 .2) 06/23/24 17:35 AST 12 U/L (0-32) 06/23/24 17:35 ALT 14 U/L (0-33) 06/23/24 17:35 Alkaline Phosphata se 90 U/L (35-105) 06/23/24 17:35 Total Protein 7.5 g/dL (6.6-8.7 ) 06/23/24 17:35 Albumin 4.3 g/dL (3.5-5.2 ) 06/23/24 17:35 Globulin 3.2 g/dL (1.3-4.6 ) 06/23/24 17:35 TSH 1.55 uIU/mL (0.27 -4.20) 06/23/24 17:35 HCG, Qual Negative (Negati ve) 06/23/24 18:57 Urine Color Red (Yellow) A 06/23/24 18:57 Urine Appearance Clear (CLEAR) 06/23/24 18:57 Urine pH 7.5 (5-7) 06/23/24 18:57 Ur Specific Gravit y 1.010 (1.005-1.0 30) 06/23/24 18:57 Urine Protein 1+ (Negative) A 06/23/24 18:57 Urine Glucose (UA) Negative (Normal ) 06/23/24 18:57 Urine Ketones Negative (Negati ve) 06/23/24 18:57 Urine Blood 3+ (Negative) A 06/23/24 18:57 Urine Nitrate Negative (Negati ve) 06/23/24 18:57 Urine Bilirubin Negative (Negati ve) 06/23/24 18:57 Urine Urobilinogen 1.0 mg/dL (Negati ve) 06/23/24 18:57 Ur Leukocyte Mago ase Trace (Negative) A 06/23/24 18:57 Urine RBC >100 /hpf (0-2) H 06/23/24 18:57 Urine WBC 6-10 /hpf (0-5) 06/23/24 18:57 Ur Squamous Epith Cells 6-10 /hpf (0-5) 06/23/24 18:57 Amorphous Sediment Not Reportable 06/23/24 18:57 Urine Bacteria None seen /hpf (N ONE) 06/23/24 18:57 Hyaline Casts 0-4 /lpf H 06/23/24 18:57 Salicylates < 0.3 mg/dL (3-10 ) L 06/23/24 17:35 Urine Opiates Scre en Negative ng/mL (N egative) 06/23/24 18:57 Acetaminophen < 5.0 ug/mL (10-3 0) L 06/23/24 17:35 Ur Barbiturates Sc reen Negative ng/mL (N egative) 06/23/24 18:57 Ur Phencyclidine S crn Negative ng/mL (N egative) 06/23/24 18:57 Ur Amphetamines Sc reen Negative ng/mL (N egative) 06/23/24 18:57 U Benzodiazepines Scrn Negative ng/mL (N egative) 06/23/24 18:57 Urine Cocaine Scre en Negative ng/mL (N egative) 06/23/24 18:57 U Marijuana (THC) Screen Negative ng/mL (N egative) 06/23/24 18:57 Vitals: Last Vital Signs Temp 97.5 F L 06/28/24 06:00 Pulse 66 06/28/24 06:00 Resp 17 06/28/24 06:00 BP 108/70 06/28/24 06:00 Pulse Ox 97 06/28/24 06:00 O2 Del Method Room Air 06/27/24 13:05 Discharge Plan Discharge Condition: Stable Prescriptions: New diclofenac sodium 75 mg Tablet,Delayed Release (Dr/Ec) 75 mg PO PRN PRN (Reason: pain) 30 Days Qty: 30 1RF hydroxyzine pamoate 25 mg Capsule 50 mg PO Q6H PRN (Reason: Anxiety) 30 Days Qty: 120 1RF bupropion HCl 150 mg Tablet Extended Release 24 Hr 150 mg PO DAILY 30 Days Qty: 30 1RF Continued escitalopram oxalate [Lexapro] 20 mg tablet 20 mg PO DAILY 90 Days Qty: 90 1RF gabapentin 300 mg capsule 600 mg PO TID 30 Days Qty: 180 3RF lisinopril 5 mg tablet 5 mg PO DAILY 30 Days Qty: 30 5RF benzonatate 100 mg capsule 100 mg PO TID PRN (Reason: cough) Qty: 90 0RF spironolactone 50 mg tablet 50 mg PO QAM 30 Days Qty: 30 5RF cetirizine 10 mg tablet 10 mg PO DAILY 90 Days Qty: 90 0RF Discharge Orders: Discharge Order (Routine); Ordered 06/28/24 Ordered By: Jones Zavaleta Referrals: Rajat Rodriguez MD [Primary Care Provider] - Discharge Diet: Regular Discharge Activity: Resume usual activity Patient Instructions: Opioid Safety Discharge Attestations NPU Time Spent in Discharge Care*: less than 30 min Specific Discharge Activities: Specific discharge activities: educating patient, discussing with onsite case manager/social workers/dc planners, documenting/other paperwork and evaluating patient/reviewing data Coding Level of Care Code Acute Code for [facility]wd Diagnoses Suicidal ideation R45.851 Major depressive disorder, recurrent F33.9 PTSD (post-traumatic stress disorder) F43.10 HARMONY (generalized anxiety disorder) F41.1 Partner relational problem Z63.0 Parent-child relational problem Z62.820 Morbid obesity E66.01
[2024-06-28] MEDS: ibuprofen 600 mg Tablet PO (07:27)
[2024-06-28] MEDS: lisinopril 5 mg Tablet PO (07:47)
[2024-06-28] MEDS: buPROPion XL (24 HR) 150 mg Tablet PO (07:47)
[2024-06-28] MEDS: gabapentin 300 mg Capsule 600 MG PO (07:47)
[2024-06-28] MEDS: spironolactone 25 mg Tablet 50 MG PO (07:47)
[2024-06-28] MEDS: escitalopram 10 mg Tablet 20 MG PO (07:47)
[2024-06-28 08:38] VITALS: BP 108/70; PULSE 66; RESP 17; TEMP 36.4; O2SAT 97
== END 2024-06-28 08:54 | disposition home or self-care (01) | DRG 885 ==
LOC: ER 19:33 → NP 19:53
PROVIDERS: Admitting Provider Psychiatry & Neurology Psychiatry; Emergency Provider Emergency Medicine; PCP Family Medicine; Visit Provider Psychiatry & Neurology Psychiatry
DX: F33.9 Major depressive disorder, recurrent, unspecified (principal); R45.851 Suicidal ideations; Z68.42 Body mass index [BMI] 45.0-49.9, adult; F43.10 Post-traumatic stress disorder, unspecified; F41.1 Generalized anxiety disorder; E66.01 Morbid (severe) obesity due to excess calories; F17.290 Nicotine dependence, other tobacco product, uncomplicated; Z63.0 Problems in relationship with spouse or partner; Z62.820 Parent-biological child conflict
CPT/HCPCS: 36415; 80053; 80306; 80307; 81003; 81015; 81025; 84443; 85025; 87086; 97150; 97165; 99285

== ENCOUNTER 2024-09-16 09:27 | Emergency (ER) | payer OTHER, MEDICAID, SELFPAY ==
[2024-09-16] VITALS (17 sets, daily range): BP systolic 110–144; BP diastolic 66–80; PULSE 61–70; TEMP 36.7; O2SAT 98–100; BMI 45.2
--- NOTE | 2024-09-16 10:41 | PC.PHAR ---
patient states all her meds are current therapy, however she said shes out of all meds and its been about 2 weeks since any meds were taken
[2024-09-16] MEDS: ondansetron 2 mg/ML SDV 2 mL 8 MG IVP (10:48)
--- NOTE | 2024-09-16 10:51 | ED_ITS ---
HPI - Headache General: Chief Complaint: Headache Stated Complaint: headache Time Seen by Provider: 09/16/24 10:20 History of Present Illness: 29-year-old female with a history of shawna jose de jesus and hypertension who presents to the emergency room with a migraine headache for about a week. She is here with her family at the hospital visiting her grandmother who was in the intensive care unit. She has had vomiting for a couple of days now and cannot keep anything down she says. Family finally urged her to come to the emergency room for treatment. This is similar to her usual headaches. She has photophobia and phonophobia. Nausea and vomiting. No altered mental status. No focal motor deficits. Headache is generalized. Related Data Home Medications Medication Instructions Recorded Confirmed bupropion HCl 150 mg 24 hr tablet, 150 mg PO QAM 09/16/24 09/16/24 extended release gabapentin 300 mg capsule 600 mg PO TID 09/16/24 09/16/24 Previous Rx's Medication Instructions Recorded lisinopril 5 mg tablet 5 mg PO DAILY 30 days #30 tabs 03/31/24 cetirizine 10 mg tablet 10 mg PO DAILY 90 days #90 tabs 05/03/24 spironolactone 50 mg tablet 50 mg PO QAM 30 days #30 tabs 05/03/24 escitalopram oxalate 20 mg tablet 20 mg PO DAILY 90 days #90 tabs 05/31/24 (Lexapro) diclofenac sodium 75 mg 75 mg PO PRN PRN pain 30 days #30 06/28/24 tablet,delayed release tabs hydroxyzine pamoate 25 mg capsule 50 mg (2 x 25 mg) PO Q6H PRN 06/28/24 Anxiety 30 days #120 caps dexamethasone 6 mg tablet 6 mg PO DAILY 5 days #5 tabs 09/16/24 diclofenac sodium 50 mg 50 mg PO BID PRN pain #14 tabs 09/16/24 tablet,delayed release ondansetron 8 mg disintegrating 8 mg PO Q6H #14 tabs 09/16/24 tablet Allergies Allergy/AdvReac Type Severity Reaction Status Date / Time hydrocodone Allergy ADR-Irritab Verified 09/16/24 09:46 le latex Allergy ALGY-Swell Verified 09/16/24 09:46 Lip/Tongue/Throat Penicillins Allergy ALGY-Swell Verified 09/16/24 09:46 Lip/Tongue/Throat Review of Systems Narrative: Constitutional symptoms: Negative except as documented in HPI. Skin symptoms: Negative except as documented in HPI. Eye symptoms: Negative except as documented in HPI. ENMT symptoms: Negative except as documented in HPI. Respiratory symptoms: Negative except as documented in HPI. Cardiovascular symptoms: Negative except as documented in HPI. Gastrointestinal symptoms: Negative except as documented in HPI. Genitourinary symptoms: Negative except as documented in HPI. Musculoskeletal symptoms: Negative except as documented in HPI. Neurologic symptoms: Negative except as documented in HPI. Psychiatric symptoms: Negative except as documented in HPI. Endocrine symptoms: Negative except as documented in HPI. PFSH ED PFSH: Medical History (Updated 09/16/24 @ 10:56 by Amy Flores MD) Psychiatric care Chronic post-traumatic stress disorder (PTSD) Following information retrieved/edited from Behavior Assessment Report, completed on 07/02/24: She is diagnosed with Posttraumatic Stress Disorder in that she has directly experienced traumatic events with symptoms including: recurrent, involuntary, and intrusive distressing memories of the traumatic event(s); dissociative reactions) in which the individual feels or acts as if the traumatic event(s) were recurring; intense or prolonged psychological distress at exposure to internal or external cues that symbolize or resemble an aspect of the traumatic event(s);persistent avoidance of stimuli associated with the traumatic event(s), beginning after the traumatic event(s) occurred, as evidenced by avoidance of or efforts to avoid distressing memories, thoughts, or feelings about or closely associated with the traumatic event(s) and avoidance of or efforts to avoid external reminders that arouse distressing memories, thoughts, or feelings about or closely associated with the traumatic event; persistent and exaggerated negative beliefs or expectations about oneself, others, or the world; persistent negative emotional state; markedly diminished interest or participation in significant activities; per sistent inability to experience positive emotions; irritable behavior and angry outbursts; problems with concentration; sleep disturbances. The duration of the disturbance is more than one month. The disturbance causes clinically significant distress or impairment in social, occupational, or other important areas of functioning. The disturbance is not attributable to the physiological effects of a substance or another medical condition. MDD (major depressive disorder), recurrent severe, without psychosis Depression Asthma Surgical History H/O right knee surgery H/O bilateral salpingectomy (07/31/22) 07/31/2022: laparoscopic bilateral salpingectomy performed by Dr. Marsh at [facility] Hx of laparoscopy (~10/09/22) Diagnostic Laprascopy performed on 10/09/[address] Marsh at [facility]. No findings for pelvic pain. Family History Mother Bleeding disorder Stroke Thyroid disease Breast cancer, Onset Age: 23 been diagnosed twice Father Hypertension Stroke Grandmother Stroke paternal Heart disease paternal Breast cancer maternal and paternal 50's Denies family history of Colon cancer Ovarian cancer Diabetes Clotting disorder Hyperlipidemia Anesthesia complication Uterine cancer Social History Smoking and tobacco/nicotine status: current every day tobacco/nicotine user (VAPER DAILY) Substance/Drug Use: never Physical Exam Narrative: EXAM NARRATIVE: General: Alert, no acute distress. Skin: Warm, dry. Head: Normocephalic, atraumatic. Neck: Supple, trachea midline. Eye: Extraocular movements are intact. Ears, nose, mouth and throat: mucosa moist. Cardiovascular: Regular, Normal peripheral perfusion. Respiratory: Lungs are clear to auscultation, respirations are non-labored, breath sounds are equal, Symmetrical chest wall expansion. Gastrointestinal: Soft, Nontender, Non distended Musculoskeletal: Normal ROM, no deformity. Neurological: Alert and oriented, No focal neurological deficit observed. Psychiatric: Cooperative, appropriate mood & affect. Course Vital Signs: Vital signs: Vital Signs Temperature 98.1 F 09/16/24 09:41 Pulse Rate 61 09/16/24 10:50 Blood Pressure 130/75 09/16/24 11:00 Pulse Oximetry 100 09/16/24 11:00 Oxygen Delivery Me thod Room Air 09/16/24 10:50 MDM - Headache Medical Decision Making Medical decision making: Differential diagnosis for this patient presenting with severe headache including but not limited to and based on the above HPI, review of systems and physical exam: Intracranial hemorrhage, stroke, migraine, cluster headache, infections such as influenza, covid, however in this patient who has a migraine that is typical for her migraines investigation for these other etiologies does not seem warranted. We will attempt to treat her headache Reexamination: Patient remained stable. No increased work of breathing. No altered mental status. No focal motor deficits. Assessment and plan: Migraine headache - 50 mg IV Benadryl - 30 mg IV Toradol - 10 mg IV Reglan - 8 mg IV Benadryl - 60 mg IV Norflex - Discharged home - Discussed plan with patient. Answered any questions. - Evaluation and treatment of this problem were appropriate in the emergency setting. No radiology studies performed this visit Discharge Plan Discharge Patient Disposition: Home Clinical Impression: Migraine Condition: Stable Prescriptions: New dexamethasone 6 mg tablet 6 mg PO DAILY 5 Days Qty: 5 0RF ondansetron 8 mg tablet,disintegrating 8 mg PO Q6H Qty: 14 0RF Rx Instructions: Take 1/2-1 tab every 6 hours as needed for nausea and vomiting diclofenac sodium 50 mg tablet,delayed release (DR/EC) 50 mg PO BID PRN (Reason: pain) Qty: 14 0RF No Action escitalopram oxalate [Lexapro] 20 mg tablet 20 mg PO DAILY 90 Days Qty: 90 1RF lisinopril 5 mg tablet 5 mg PO DAILY 30 Days Qty: 30 5RF spironolactone 50 mg tablet 50 mg PO QAM 30 Days Qty: 30 5RF cetirizine 10 mg tablet 10 mg PO DAILY 90 Days Qty: 90 0RF diclofenac sodium 75 mg Tablet,Delayed Release (Dr/Ec) 75 mg PO PRN PRN (Reason: pain) 30 Days Qty: 30 1RF hydroxyzine pamoate 25 mg Capsule 50 mg PO Q6H PRN (Reason: Anxiety) 30 Days Qty: 120 1RF gabapentin 300 mg capsule 600 mg PO TID bupropion HCl 150 mg tablet extended release 24 hr 150 mg PO QAM Discharge Orders: Discharge ED (Routine); Ordered 09/16/24 Ordered By: Amy Flores Referrals: Adrián Magaña MD [Physician] - 7-10 days (Please call for follow-up appointment with neurology.) Rajat Rodriguez MD [Primary Care Provider] - Discharge Diet: Usual diet Discharge Activity: Increase activity as tolerated Patient Instructions: Migraine Headache (ED), Opioid Safety, Pain Management Activity Restrictions/Additional Instructions: Thank you for choosing [facility] for your healthcare needs today. Please realize this is an emergency room and that we are providing you with a medical screening exam and this may not be complete and all inclusive of all the testing and or work up that you may need to determine your ailment or severity of your illness. You have been screened and evaluated and felt safe for discharge. Health conditions do change or evolve sometimes and as such it is important that you follow up with your Primary Doctor to be re checked, 3-5 days is a general good time frame for follow up. You are always welcome to return to the ED for re assessment if your symptoms are worsening or you have new concerns Coding Level of Care Code ED Metal Weigher for Aracely De Leon
[2024-09-16] MEDS: orphenadrine 30 mg/mL Inj 2 mL 60 MG IVP (10:53)
[2024-09-16] MEDS: ketorolac 30 mg/mL INJ IVP (10:58)
[2024-09-16] MEDS: metoclopramide 5 mg/mL SDV 2 mL 10 MG IVP (11:01)
[2024-09-16] MEDS: diphenhydrAMINE 50 mg/mL SDV 1mL IVP (11:05)
== END 2024-09-16 12:07 | disposition home or self-care (01) ==
PROVIDERS: Emergency Provider Emergency Medicine; PCP Family Medicine
DX: G43.909 Migraine, unspecified, not intractable, without status migrainosus (principal); F17.290 Nicotine dependence, other tobacco product, uncomplicated
CPT/HCPCS: 96374; 96375; 99284; J1200; J1885; J2360; J2405; J2765